=== PATIENT | male | born 1975 | race Caucasian/White ===

== ENCOUNTER 2020-01-14 00:06 | Emergency (ER) | payer OTHER, SELFPAY ==
[2020-01-14 00:07] VITALS: BP 136/81; PULSE 63; RESP 16; O2SAT 95; BMI 36.6
--- NOTE | 2020-01-14 00:29 | CT_ITS ---
PROCEDURE: CT ABDOMEN PELVIS WO CON CLINICAL INDICATION: right flank pain Right flank pain COMPARISON: No exams were available for comparison TECHNIQUE: Axial images obtained with sagittal and coronal reformats. All CT scans at the facility use one or more dose reduction, viz: automated exposure control, ma/kV adjustment per patient size (including targeted exams where dose is matched to indication, i.e. head), or iterative reconstruction technique. FINDINGS: LOWER THORAX: No acute finding ABDOMEN & PELVIS: There is mild splenomegaly at 15 cm. The liver, adrenal glands and pancreas have an unremarkable appearance. There is mild right hydronephrosis and hydroureter. There is a 3 mm nonobstructing stone in the lower pole of the right kidney. There is a 3 mm stone at the right ureterovesical junction. The left kidney has an unremarkable appearance. No evidence of appendicitis intestinal obstruction or free air. No evidence of diverticulitis. There is sigmoid diverticulosis. Degenerative disc disease is present at L5-S1 IMPRESSION: 1. 3 mm right ureterovesical junction stone with mild right-sided obstructive uropathy and 3 mm stone in the lower pole of the right kidney. 2. Sigmoid diverticulosis. 3. Mild splenomegaly Dictated by: Froylan Howell MD 01/14/2020 09:33 Electronically signed by Froylan Howell MD in [place] 01/14/2020 09:33
[2020-01-14 01:09] LABS: Basophils # 0.1 K/mm3 (0-0.2); Basophils % 0.7 % (0.1-2.0); Eosinophils # 0.2 K/mm3 (0.0-0.4); Eosinophils % 1.6 % (0.1-12.0); Hematocrit 43.2 % (42.0-52.0); Hemoglobin 15.1 g/dL (14.1-18.0); Lymphocytes # 7.5 K/mm3 (0.7-4.5); Lymphocytes % 55.8 % (10-50); Mean Corpuscular HGB Conc 34.9 g/dL (31.8-35.4); Mean Corpuscular Hemoglobin 29.6 pg (27.0-31.2); Mean Corpuscular Volume 84.7 fl (80-94); Mean Platelet Volume 7.9 fl (7.4-10.4); Monocytes % 7.2 % (1.7-9.3); Neutrophils # 4.7 K/mm3 (1.8-7.8); Neutrophils % 34.7 % (37.0-80.0); Platelet Count 370 K/mm3 (142-424); Red Cell Distribution Width 13.9 % (11.5-17.5); White Blood Count 13.5 K/mm3 (4.8-10.8)
[2020-01-14 01:11] LABS: MANUAL DIFFERENTIAL MANUAL DIFFERENTIAL (MANUAL DIFF)
[2020-01-14 01:12] LABS: Alanine Aminotransferase 33 U/L (12-78); Albumin Level 4.1 g/dl (3.5-5.0); Albumin/Globulin Ratio 1.5 (1.1-1.8); Alkaline Phosphatase 47 U/L (38-126); Aspartate Amino Transferase 35 U/L (17-59); Bilirubin,Total 0.2 mg/dl (0.2-1.3); Blood Urea Nitrogen 21 mg/dl (9-20); Calcium 9.1 mg/dl (8.4-10.2); Carbon Dioxide 26 mmol/L (22.0-30.0); Chloride 104 mmol/L (98-107); Creatinine Clearance Estimated 128 mL/min (50-200); Estimated Glomerular Filt Rate 61 ml/min (>60); GFR (African American) 73 ML/MIN (>60); Globulin 2.7 g/dL (1.3-3.2); Glucose 124 mg/dl (74-100); Sodium 138 mmol/L (136-145); Total Protein,Serum 6.8 g/dl (6.3-8.2)
--- NOTE | 2020-01-14 01:26 | PC.NURSE ---
with patients permission, was called and updated with patients condition.
--- NOTE | 2020-01-14 01:27 | PC.NURSE ---
pt to ct
[2020-01-14 01:37] VITALS: BP 127/79; PULSE 61; RESP 16; O2SAT 96
[2020-01-14 02:24] LABS: Lymphocytes % 61 % (10-50); Monocytes % 8 % (2-9); Neutrophils % 31 % (42-76); RBC Morphology Normal; Total Cells Counted 100
[2020-01-14 02:25] LABS: Platelet Estimate Normal
[2020-01-14 02:30] VITALS: BP 123/81; PULSE 65; RESP 15; O2SAT 96
--- NOTE | 2020-01-14 02:34 | HMH.EDNVD ---
ED Disposition Clinical Impression: Renal colic on right side Disposition: Home, Self-Care Condition on Discharge: Good Instructions: DI for Kidney Stones Additional Instructions: fluids and call pcp and urology Prescriptions: Tamsulosin HCl [Flomax 0.4mg capsule] 0.4 mg PO HS #10 cap Prescription Printed Referrals: Provider,MD Angie [Primary Care Provider] - Hermes Calzada MD [Staff Physician] - - Critical Care Critical Care Time: No Attestation: On 01/14/20, the high probability of a clinically significant, sudden or life threatening deterioration of the following system(s) required my full and direct attention, intervention and personal management. The time I documented below is in addition to time spent performing reported procedures but includes the following listed in this critical care notation. Medical Decision Making - Medical Records Medical records reviewed: Yes: I reviewed the patient's medical records. - Garrett Inquiry Pt receiving controlled substance: No Vital Signs: 01/14/20 00:07 Pulse Rate [Left Radial] 63 Respiratory Rate 16 Blood Pressure [Right Arm] 136/81 Blood Pressure Mean [Right Arm] 99 Blood Pressure Source [Right Arm] Automatic Cuff Blood Pressure Position [Right Arm] Sitting 02 Sat by Pulse Oximetry 95 Oxygen Delivery Method Room Air - Lab Data Lab results reviewed: Yes: I reviewed the patient's lab results. Lab Results 01/14/20 00:15: WBC 13.5 H, RBC 5.10, Hgb 15.1, Hct 43.2, MCV 84.7, MCH 29.6, MCHC 34.9, RDW 13.9, Plt Count 370, MPV 7.9, Neut % (Auto) 34.7 L, Lymph % (Auto) 55.8 H, [place] % (Auto) 7.2, Eos % (Auto) 1.6, Baso % (Auto) 0.7, Neut # (Auto) 4.7, Lymph # (Auto) 7.5 H, [place] # (Auto) 1.0, Eos # (Auto) 0.2, Baso # (Auto) 0.1, Total Counted 100, Neutrophils % (Manual) 31 L, Lymphocytes % (Manual) 61 H, Monocytes % (Manual) 8, Platelet Estimate Normal, RBC Morphology Normal 01/14/20 00:15: Sodium 138, Potassium 3.0 L, Chloride 104, Carbon Dioxide 26, Anion Gap 11.0, BUN 21 H, Creatinine 1.30 H, Estimated Creat Clear 128, Estimated GFR 61, Est GFR ( Amer) 73, Glucose 124 H, Calcium 9.1, Total Bilirubin 0.2, AST 35, ALT 33, Alkaline Phosphatase 47, Total Protein 6.8, Albumin 4.1, Globulin 2.7, Albumin/Globulin Ratio 1.5 Result diagrams: 01/14/20 00:15 01/14/20 00:15 Orders (Tests/Meds): ED MEDICATIONS Discontinued Medications Generic Name Dose Route Start Last Admin Trade Name Freq PRN Reason Stop Dose Admin Ketorolac Tromethamine 30 mg 01/14/20 00:30 01/14/20 00:34 Toradol 30mg/Ml Vial IV 01/14/20 00:31 30 mg ONCE ONE Administration Tamsulosin HCl 0.4 mg 01/14/20 21:00 Flomax 0.4mg Capsule PO 02/13/20 20:59 HS NISHA Tamsulosin HCl 0.4 mg 01/14/20 02:55 01/14/20 02:55 Flomax 0.4mg Capsule PO 01/14/20 02:56 0.4 mg HS ONE Administration ORDERS Category Date Time Status CT abdomen pelvis wo con Stat Cat Scan 01/14/20 00:29 Taken Urinalysis and Microscopic Stat Lab 01/14/20 03:10 Ordered - CT Data CT Scan: Abdomen, Pelvis Time Received: 02:[address] Reviewed: Yes: I have viewed the radiologist's interpretation Preliminary Findings: Abnormal (2mm stone) Nausea/Vomiting/Diarrhea HPI - General Chief complaint: PAIN Stated complaint: Abd/back pain Time Seen by Provider: 01/14/20 00:20 Mode of Arrival: EMS Source of Information: Patient, EMS, Medical Record Limitations: No Limitations Description of Symptoms (Recalled from ER Triage Doc. by RN): pt c/o right flank pain that woke him up in the middle of the night. pt denies any abdominal pain when palpating. EMS has 1000ml NS going at 999 ml/hr at this time. - History of Present Illness HPI Narrative: acute onset of rt flank pain tonight with no fever or rash and no trauma MD complaint: nausea Onset (ago): hour(s) Associated Abdominal Pain: Yes Location of pain: flank Severity: moderate Consistency: colicky Associated symptoms: den
[2020-01-14 03:15] LABS: Microscopic, Urine URINE MICROSCOPIC (MICROSCOPIC)
[2020-01-14 03:17] LABS: Appearance,Urine CLEAR (Clear); Bilirubin,Urine Negative (Negative); Blood, Urine 2+ (Negative); Color,Urine YELLOW (Yellow); Glucose,Urine (UA) Negative (Negative); Ketones,Urine Negative (Negative); Leukocyte Esterase,Urine Negative (Negative); Nitrate,Urine Negative (Negative); Protein,Urine Negative (Negative); Specific Gravity, Urine 1.025 (1.005-1.030); Urobilinogen,Urine 0.2 EU/dl (0.2)
[2020-01-14 03:32] LABS: Bacteria,Urine Trace /lpf; RBC,Urine Occasional #/hpf (0-3); Squamous Epithelial Cell,Urine Occasional #/hpf (0-5); WBC,Urine Occasional #/hpf (0-3)
[2020-01-14 03:47] VITALS: BP 118/83; PULSE 71; RESP 16; TEMP 36.8; O2SAT 98
== END 2020-01-14 03:52 | disposition home or self-care (01) ==
PROVIDERS: Emergency Provider Emergency Medicine
DX: N20.0 Calculus of kidney (principal)
CPT/HCPCS: 74176; 80053; 81001; 85007; 85025; 96374; 96375; 99283

== ENCOUNTER 2021-02-03 07:40 | Emergency (ER) | payer OTHER, SELFPAY ==
[2021-02-03 07:47] VITALS: BP 154/91; PULSE 76; RESP 18; TEMP 36.7; O2SAT 97; BMI 35.2
--- NOTE | 2021-02-03 08:23 | PC.NURSE ---
Pt left without being seen.
[2021-02-03 08:24] VITALS: BP 154/91; PULSE 76; RESP 18; TEMP 36.7; O2SAT 97
== END 2021-02-03 08:28 | disposition left against medical advice (07) ==
LOC: ER 07:46
PROVIDERS: Emergency Provider Emergency Medicine; PCP Family Medicine
DX: Z53.21 Procedure and treatment not carried out due to patient leaving prior to being seen by health care provider (principal)
CPT/HCPCS: 99211

== ENCOUNTER 2021-02-03 15:36 | Emergency (ER) | payer OTHER, SELFPAY ==
[2021-02-03 15:40] VITALS: BP 130/91; PULSE 83; RESP 18; TEMP 36.8; O2SAT 100; BMI 35.2
--- NOTE | 2021-02-03 16:06 | HMH.EDUTC ---
[facility] [place] Disposition Clinical Impression: Impacted ear wax Qualifiers: Laterality: bilateral Qualified Code(s): H61.23 - Impacted cerumen, bilateral Disposition: Home, Self-Care Condition on Discharge: Good Instructions: Cerumen Impaction Additional Instructions: Over the counter Debrox may help with cerumen impaction of earwax Watch for signs of infection, worsening of ear pain, fever etc Return if needed Straight to ER if any life threatening symptoms Follow up with Family Doctor if needed Referrals: Douglas Singh MD [Primary Care Provider] - As needed Time of Disposition: 16:19 Medical Decision Making - Garrett Inquiry Pt receiving controlled substance: No Garrett was queried for this patient: No Vital Signs: 02/03/21 15:40 Temperature 98.3 F Temperature Source Oral Pulse Rate [Right] 83 Respiratory Rate 18 Blood Pressure [Right Arm] 130/91 H Blood Pressure Mean [Right Arm] 104 Blood Pressure Source [Right Arm] Automatic Cuff Blood Pressure Position [Right Arm] Sitting 02 Sat by Pulse Oximetry 100 Orders (Tests/Meds): ORDERS Category Date Time Status Shoulder XR right miminum 2 views [XR shoulder RT min Exams 02/03/21 16:11 Ordered 2V] Stat Medical Decision Narrative: patient tolerated well no complications Ear wax appears completely removed [facility] [place] HPI - General Stated complaint: ear wax removal Time Seen by Provider: 02/03/21 16:06 Mode of Arrival: Family Vehicle Source of Information: Patient Description of Symptoms (Recalled from Triage Doc. by RN): Pt c/o both ears feeling full of wax HEENT Symptoms (Recalled from RN notes): Yes (bilateral ear pressure) Resp Symptoms (Recalled from RN notes): No Skin Symptoms (Recalled from RN notes): No MS Symptoms (Recalled from RN notes): No Functional Status (Recalled from RN notes): na - History of Present Illness Provider Complaint: Patient states that both his ears feels like they are full of wax States that he tried to get it out this morning but wasnt able to States that feels like they are totally blocked off and he cannot hear well due to it State that he has had to have his ears cleaned several times before to get the wax out - Related Data Previous Rx's Medication Instructions Recorded Tamsulosin HCl [Flomax 0.4mg 0.4 mg PO HS #10 cap 01/14/20 capsule] Allergies Allergy/AdvReac Type Severity Reaction Status Date / Time No Known Drug Allergies Allergy Unknown Verified 02/03/21 15:46 [NKDA] - Worker's Comp Is this a Worker's Comp case?: No [facility] History - Hepatitis A Screen Drug use history?: No High risk sexual behaviors?: No History of sexually transmitted infection?: No Currently employed?: No Childcare worker?: No Do you have indoor plumbing?: Yes Do you have electricity?: Yes Attestation statement:: This patient has been screened for Hepatitis A risk factors. I have reviewed the patient's past medical history: Yes - Social History Smoking Status: Unknown if ever smoked Alcohol Intake: never Occupational Status: employed ROS Obtained: Yes All systems reviewed & no additional complaints, Yes Systems reviewed as appropriate & no additional complaints - Constitutional Constitutional: Reports system reviewed and no additional complaints, except as docu, Denies body ache, Denies chills, Denies fever(s), Denies headache(s) - Eyes Eyes: Reports system reviewed and no additional complaints, except as docu - ENT Ears, Nose, Mouth, and Throat: Reports system reviewed and no additional complaints, except as docu, Reports otalgia Physical Exam - General General appearance: alert, in no apparent distress - Expanded ENT Exam TM/Canal exam: Bilateral TM: cerumen impaction - Respiratory Respiratory exam: Present: normal lung sounds bilaterally. Absent: respiratory distress - Cardiovascular Cardiovascular exam: Present: regular rate, normal rhythm. Absent: JVD - Abdominal Exam Abdom
[2021-02-03 16:22] VITALS: BP 122/85; PULSE 87; RESP 18; TEMP 36.8
== END 2021-02-03 16:22 | disposition home or self-care (01) ==
PROVIDERS: Emergency Provider Nurse Practitioner; PCP Family Medicine
DX: H92.03 Otalgia, bilateral (principal); H61.23 Impacted cerumen, bilateral
CPT/HCPCS: 99202; G0463

== ENCOUNTER 2021-02-08 16:23 | Emergency (ER) | payer OTHER, SELFPAY ==
[2021-02-08 16:55] VITALS: BP 140/90; PULSE 82; RESP 19; TEMP 36.9; O2SAT 98; BMI 35.2
--- NOTE | 2021-02-08 17:25 | HMH.EDUTC ---
[facility] [place] Impression: Strep throat Otitis externa Qualifiers: Otitis externa type: swimmer's ear Chronicity: acute Laterality: bilateral Qualified Code(s): H60.333 - Swimmer's ear, bilateral Disposition: Home, Self-Care Condition on Discharge: Good Instructions: DI for Strep Throat Additional Instructions: Start antibiotics today be sure to take it as ordered with the full length of time although you should start feeling better in 24-48 hours. Change toothbrush and toothpaste 24-48 hours after starting antibiotics Tylenol or Motrin as needed for fever or pain Encourage fluids, water, Gatorade, Powerade, try cold fluids, popsicles, ice cream will make it feel better You are contagious for 24 hours. Avoid kissing anyone, no eating or drinking after anyone. You are contagious. Follow-up the ER for new or worsening symptoms or no noticeable improvement over the next 24-48 hours. Follow-up with PCP this week. Prescriptions: cephALEXin [Cephalexin 500mg Tab] 500 mg PO BID 10 Days #20 tab Transmission Status: Pending to [facility] #[id number] Neomycin/Polymyxin B Sulf/Hc [Grijpunr-Ovbesnenc-JX Otic Susp 10mL] 1 drp EAR-BOTH BID 7 Days #1 bottle Transmission Status: Pending to [facility] #[id number] Referrals: Douglas Singh MD [Primary Care Provider] - Time of Disposition: 17:31 Medical Decision Making - Garrett Inquiry Pt receiving controlled substance: No Vital Signs: 02/08/21 16:55 Temperature 98.4 F Temperature Source Oral Pulse Rate [Right Brachial] 82 Respiratory Rate 19 Blood Pressure [Right Arm] 140/90 Blood Pressure Mean [Right Arm] 106 Blood Pressure Source [Right Arm] Automatic Cuff Blood Pressure Position [Right Arm] Sitting 02 Sat by Pulse Oximetry 98 Oxygen Delivery Method Room Air [facility] [place] - General Chief complaint: Urgent [facility] Center Stated complaint: SORE THROAT, BOTH EARS PAIN Time Seen by Provider: 02/08/21 17:26 Mode of Arrival: Ambulatory Source of Information: Patient Limitations: No Limitations Description of Symptoms (Recalled from Triage Doc. by RN): PATIENT C/O BILATERAL EAR PAIN X 6 DAYS HEENT Symptoms (Recalled from RN notes): No Resp Symptoms (Recalled from RN notes): No Skin Symptoms (Recalled from RN notes): No MS Symptoms (Recalled from RN notes): No Functional Status (Recalled from RN notes): WNL - History of Present Illness Provider Complaint: 45 yr old male presnets for zak ear pain and sore throat. pt states he had his ears flushed out a few days ago and since then his ears are hurting and today sore throat started - Related Data Previous Rx's Medication Instructions Recorded Tamsulosin HCl [Flomax 0.4mg 0.4 mg PO HS #10 cap 01/14/20 capsule] Neomycin/Polymyxin B Sulf/Hc 1 drp EAR-BOTH BID 7 Days #1 bottle 02/08/21 [Wtindxai-Gkvqdyvoi-AF Otic Susp 10mL] cephALEXin [Cephalexin 500mg Tab] 500 mg PO BID 10 Days #20 tab 02/08/21 Allergies Allergy/AdvReac Type Severity Reaction Status Date / Time No Known Drug Allergies Allergy Unknown Verified 02/03/21 15:46 [NKDA] - Worker's Comp Is this a Worker's Comp case?: No [facility] History - Hepatitis A Screen Drug use history?: No High risk sexual behaviors?: No History of sexually transmitted infection?: No Currently employed?: No Childcare worker?: No Do you have indoor plumbing?: Yes Do you have electricity?: Yes Attestation statement:: This patient has been screened for Hepatitis A risk factors. I have reviewed the patient's past medical history: Yes - Social History Smoking Status: Unknown if ever smoked Alcohol Intake: never Occupational Status: other ROS Obtained: Yes Systems reviewed as appropriate & no additional complaints - Constitutional Constitutional: Reports system reviewed and no additional complaints, except as docu, Denies fever(s) - Eyes Eyes: Reports system reviewed and no additional complaints, except as docu, Denies change i
[2021-02-08 17:33] VITALS: BP 140/90; PULSE 82; RESP 19; TEMP 36.9; O2SAT 98
== END 2021-02-08 17:35 | disposition home or self-care (01) ==
PROVIDERS: Emergency Provider Nurse Practitioner Family; PCP Family Medicine
DX: J02.0 Streptococcal pharyngitis (principal); H60.333 Swimmer's ear, bilateral
CPT/HCPCS: 99202; G0463

== ENCOUNTER 2021-04-15 14:52 | Emergency (ER) | payer OTHER, SELFPAY ==
[2021-04-15 15:00] VITALS: BP 131/86; PULSE 83; RESP 21; TEMP 36.9; O2SAT 97; BMI 34.5
--- NOTE | 2021-04-15 15:20 | HMH.EDUTC ---
[facility] [place] Clinical Impression: Otitis media Qualifiers: Otitis media type: unspecified Laterality: right Qualified Code(s): H66.91 - Otitis media, unspecified, right ear Disposition: Home, Self-Care Condition on Discharge: Good Instructions: Middle Ear Infection, Amoxicillin Additional Instructions: *Monitor Temp, Over the counter Motrin or Tylenol as directed/as needed Tylenol every 4 hours and Motrin every 6 hours (as long as your family doctor has told you that you can take it) for fever or pain. and straight to ER if unable to lower temp less than 101.0 after medication given *Warm salt water gargles may help to soothe the throat if you are having throat irritation *Throat Lozenges *Sleep elevated *Humidifier/Vaporizer Take antibiotics as prescribed Follow up IMMEDIATELY for new or worsening symptoms or no Noticeable improvement over the next 48-72 hours. 911 for difficulty breathing or swallowing Prescriptions: Amoxicillin [Amoxicillin 875MG Tab] 875 mg PO Q12H #20 tab Transmission Status: Pending to [facility] #[id number] Referrals: Douglas Singh MD [Primary Care Provider] - As needed Time of Disposition: 15:23 Medical Decision Making - Garrett Inquiry Pt receiving controlled substance: No Garrett was queried for this patient: No Vital Signs: 04/15/21 15:00 Temperature 98.4 F Temperature Source Oral Pulse Rate [Right Brachial] 83 Respiratory Rate 21 Blood Pressure [Right Arm] 131/86 Blood Pressure Mean [Right Arm] 101 Blood Pressure Source [Right Arm] Automatic Cuff Blood Pressure Position [Right Arm] Sitting 02 Sat by Pulse Oximetry 97 Oxygen Delivery Method Room Air [facility] [place] HPI - General Stated complaint: right ear infection Time Seen by Provider: 04/15/21 15:20 Mode of Arrival: Ambulatory Source of Information: Patient Limitations: No Limitations Description of Symptoms (Recalled from Triage Doc. by RN): PATIENT C/O RIGHT EAR PAIN X 2 DAYS HEENT Symptoms (Recalled from RN notes): Yes Resp Symptoms (Recalled from RN notes): No Skin Symptoms (Recalled from RN notes): No MS Symptoms (Recalled from RN notes): No Functional Status (Recalled from RN notes): WNL - History of Present Illness Provider Complaint: Patient states that he has been having pain in his right ear that has got worse over the last couple of days States that the pain in his right ear was throbbing and kept him up most of the night last night so he came in today - Related Data Previous Rx's Medication Instructions Recorded Amoxicillin [Amoxicillin 875MG 875 mg PO Q12H #20 tab 04/15/21 Tab] Allergies Allergy/AdvReac Type Severity Reaction Status Date / Time No Known Drug Allergies Allergy Unknown Verified 02/03/21 15:46 [NKDA] - Worker's Comp Is this a Worker's Comp case?: No [facility] History - Hepatitis A Screen Drug use history?: No High risk sexual behaviors?: No History of sexually transmitted infection?: No Currently employed?: No Childcare worker?: No Do you have indoor plumbing?: Yes Do you have electricity?: Yes Attestation statement:: This patient has been screened for Hepatitis A risk factors. I have reviewed the patient's past medical history: Yes - Social History Smoking Status: Unknown if ever smoked Alcohol Intake: never Occupational Status: other ROS Obtained: Yes All systems reviewed & no additional complaints, Yes Systems reviewed as appropriate & no additional complaints - Constitutional Constitutional: Reports system reviewed and no additional complaints, except as docu - ENT Ears, Nose, Mouth, and Throat: Reports system reviewed and no additional complaints, except as docu, Reports otalgia - Cardiovascular Cardiovascular: Reports system reviewed and no additional complaints, except as docu - Respiratory Respiratory: Reports system reviewed and no additional complaints, except as docu - Gastrointestinal Gastrointestingal: Reports: system reviewe
[2021-04-15 15:25] VITALS: BP 131/86; PULSE 83; RESP 21; TEMP 36.9; O2SAT 97
== END 2021-04-15 15:28 | disposition home or self-care (01) ==
PROVIDERS: Emergency Provider Nurse Practitioner; PCP Family Medicine
DX: H66.91 Otitis media, unspecified, right ear (principal)
CPT/HCPCS: 99202; G0463

== ENCOUNTER → 2021-07-03 08:30 | Outpatient (CLI) | payer OTHER, SELFPAY | PROVIDERS: PCP Family Medicine; Visit Provider Family Medicine | DX: Z20.822 Contact with and (suspected) exposure to COVID-19 (principal) | CPT/HCPCS: C9803; U0003; U0005 ==

== ENCOUNTER → 2021-10-05 08:07 | Outpatient (CLI) | payer OTHER, SELFPAY | PROVIDERS: PCP Family Medicine; Visit Provider Nurse Practitioner | DX: Z20.822 Contact with and (suspected) exposure to COVID-19 (principal) | CPT/HCPCS: C9803; U0003; U0005 ==

== ENCOUNTER 2021-11-13 08:08 | Emergency (ER) | payer OTHER, SELFPAY ==
[2021-11-13] VITALS (7 sets, daily range): BP systolic 104–140; BP diastolic 49–93; PULSE 68–78; RESP 16–18; TEMP 36.7–36.8; O2SAT 95–98; BMI 35.2
--- NOTE | 2021-11-13 08:30 | HMH.EDGENADL ---
ED Disposition Clinical Impression: Diverticulitis Disposition: Home, Self-Care Condition on Discharge: Good Instructions: DI for Diverticulitis Additional Instructions: Flagyl and Cipro as prescribed. Ibuprofen as prescribed. [place] as needed for pain. Return the emergency room if worse pain, fever greater than 100.5 degrees, intractable vomiting. Additional instructions for CONTROLLED SUBSTANCES: You have been prescribed a medication that is a controlled substance. Controlled substances include pain medications known as opiates and sedative nerve medications known as benzodiazepines. Tramadol, fioricet, and gabapentin are also controlled substances. Some common opiates include: Codeine (such as Tylenol #3) Hydrocodone (Vicodin, Lortab, Lorcet, [place]) Oxycodone (Percocet, Percodan, Oxycodone, Oxy IR) Some common benzodiazepines include: Diazepam (Valium) Lorazepam (Ativan) Alprazolam (Xanax) Clonazepam (Klonopin) Oxazepam (Serax) All of these controlled substances are highly addictive and frequently abused. Misuse can and frequently does lead to addiction as well as overdose and . Medication should be stored in a locked cabinet or other secure storage unit. Do not store the medication in a motor vehicle. Short term supplies, 3 days or less, are prescribed because of the highly addictive nature of the medication. Any of the controlled substance medication NOT taken should be disposed of properly and NOT SAVED. The recommended method of disposing of unused medications is: Place the medicines in a sealable plastic bag. If the medicine is a solid, crush it or add water to dissolve it. Add something undesirable (cat litter, coffee grounds, etc.) Dispose of sealed bag in household trash Do not flush or pour unused medicines down a sink or drain. Controlled substances should not be shared, given away or sold. Because of the addictive nature and frequent abuse, these medications are sometimes stolen. These medications should be kept in a safe place where they cannot be stolen. Do not keep them in your car or purse. Lost or stolen prescriptions for controlled substances WILL NOT BE REFILLED in this emergency department, regardless of whether a police report was filed. Prescriptions: Hydrocod/Acet 5/325 mg [[place] 5/325mg tablet] 1 tab PO Q6HP PRN #10 tab PRN Reason: Pain Transmission Status: Sent to [facility] Ciprofloxacin HCl [Cipro 500mg Tab] 500 mg PO BID #20 tab Transmission Status: Pending to [facility] metroNIDAZOLE [Metronidazole] 500 mg PO TID #30 tab Transmission Status: Pending to [facility] Referrals: Douglas Singh MD [Primary Care Provider] - - Critical Care Critical Care Time: No Attestation: On 11/13/21, the high probability of a clinically significant, sudden or life threatening deterioration of the following system(s) required my full and direct attention, intervention and personal management. The time I documented below is in addition to time spent performing reported procedures but includes the following listed in this critical care notation. Medical Decision Making - Garrett Inquiry Pt receiving controlled substance: Yes Garrett was queried for this patient: Yes Risks and benefits of using a controlled substance: were discussed with pt by me Vital Signs: 11/13/21 08:09 11/13/21 08:31 11/13/21 09:10 Temperature 98.2 F Temperature Source Oral Pulse Rate 77 70 Pulse Rate [Radial] 72 Respiratory Rate 16 Blood Pressure 120/70 114/74 Blood Pressure [Right Arm] 140/93 H Blood Pressure Mean [Right Arm] 108 Blood Pressure Position [Right Arm] Sitting 02 Sat by Pulse Oximetry 98 96 96 Oxygen Delivery Method Room Air Room Air 11/13/21 09:31 Temperature Temperature Source Pulse Rate 68 Pulse Rate [Radial] Respiratory Rate Blood Pressure 104/61 L Blood Pressure [Right Arm] Blood Pressure Mean [Right A
[2021-11-13 08:32] LABS: Basophils # 0.1 K/mm3 (0-0.2); Basophils % 0.5 % (0.1-2.0); Eosinophils # 0.1 K/mm3 (0.0-0.4); Eosinophils % 0.4 % (0.1-12.0); Hematocrit 46.9 % (42.0-52.0); Hemoglobin 16.3 g/dL (14.1-18.0); Lymphocytes # 2.3 K/mm3 (0.7-4.5); Lymphocytes % 16.7 % (10-50); Mean Corpuscular HGB Conc 34.7 g/dL (31.8-35.4); Mean Corpuscular Hemoglobin 30.8 pg (27.0-31.2); Mean Corpuscular Volume 88.8 fl (80-94); Mean Platelet Volume 8.3 fl (7.4-10.4); Monocytes # 0.8 K/mm3 (0.1-1.0); Monocytes % 5.9 % (1.7-9.3); Neutrophils # 10.4 K/mm3 (1.8-7.8); Neutrophils % 76.5 % (37.0-80.0); Platelet Count 301 K/mm3 (142-424); Red Blood Count 5.28 M/mm3 (4.60-6.20); Red Cell Distribution Width 14.4 % (11.5-17.5); White Blood Count 13.6 K/mm3 (4.8-10.8)
--- NOTE | 2021-11-13 08:34 | CT_ITS ---
PROCEDURE INFORMATION: Exam: CT Abdomen And Pelvis With Contrast Exam date and time: 11/13/2021 8:34 AM Age: 46 years old Clinical indication: Abdominal pain; Generalized; Additional info: Abdominal pain/ lower abd-- 4 days TECHNIQUE: Imaging protocol: Computed tomography of the abdomen and pelvis with contrast. Radiation optimization: All CT scans at this facility use at least one of these dose optimization techniques: automated exposure control; mA and/or kV adjustment per patient size (includes targeted exams where dose is matched to clinical indication); or iterative reconstruction. Contrast material: ISOVUE; Contrast volume: 75 ml; Contrast route: IV; COMPARISON: CT ABDOMEN PELVIS WO CON 01/14/2020 1:30 AM FINDINGS: Liver: Focal fatty infiltration along the falciform ligament. Gallbladder and bile ducts: Normal. No calcified stones. No ductal dilation. Pancreas: Normal. No ductal dilation. Spleen: Left upper quadrant splenule. Adrenal glands: Normal. No mass. Kidneys and ureters: Normal. No hydronephrosis. Stomach and bowel: Colonic diverticulosis with inflammatory changes about a diverticulum in the distal descending colon, consistent with diverticulitis. No bowel obstruction. Appendix: No evidence of appendicitis. Intraperitoneal space: Unremarkable. No free air. No significant fluid collection. Vasculature: Unremarkable. No abdominal aortic aneurysm. Lymph nodes: Unremarkable. No enlarged lymph nodes. Urinary bladder: Unremarkable as visualized. Reproductive: Unremarkable as visualized. 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 Soft tissues: Unremarkable. IMPRESSION: Acute uncomplicated diverticulitis involving the distal descending colon.
[2021-11-13 08:39] LABS: Chloride 102 mmol/L (98-107); Potassium 4.3 mmoL/L (3.5-5.1); Sodium 134 mmol/L (136-145)
[2021-11-13 08:41] LABS: Amylase 90 U/L (30-110); Blood Urea Nitrogen 11 mg/dl (9-20); Creatinine Clearance Estimated 157 mL/min (50-200); Estimated Glomerular Filt Rate 81 ml/min (>60); GFR (African American) 98 ML/MIN (>60)
[2021-11-13 08:42] LABS: Alanine Aminotransferase 45 U/L (12-78); Albumin Level 4.5 g/dl (3.5-5.0); Albumin/Globulin Ratio 1.5 (1.1-1.8); Alkaline Phosphatase 60 U/L (38-126); Anion Gap 8.3 mEq/L (5-15); Aspartate Amino Transferase 41 U/L (17-59); Bilirubin,Total 0.9 mg/dl (0.2-1.3); Calcium 8.7 mg/dl (8.4-10.2); Carbon Dioxide 28 mmol/L (22.0-30.0); Glucose 102 mg/dl (74-100); Lipase 594 U/L (23-300); Total Protein,Serum 7.5 g/dl (6.3-8.2)
--- NOTE | 2021-11-13 08:51 | PC.NURSE ---
LAST PO INTAKE 8PM YESTERDAY AND SIPS OF WATER THIS AM
--- NOTE | 2021-11-13 08:52 | PC.NURSE ---
pt over to CT at this time.
--- NOTE | 2021-11-13 09:02 | PC.NURSE ---
pt back from ct
== END 2021-11-13 11:18 | disposition home or self-care (01) ==
PROVIDERS: Emergency Provider Emergency Medicine; PCP Family Medicine
DX: K57.32 Diverticulitis of large intestine without perforation or abscess without bleeding
CPT/HCPCS: 74177; 80053; 82150; 83690; 85025; 96365; 96367; 96375; 99282; J1956; J2405; Q9967

== ENCOUNTER → 2021-12-07 09:01 | Outpatient (CLI) | payer OTHER, SELFPAY ==
--- NOTE | 2021-12-07 09:05 | CT_ITS ---
FINAL REPORT CLINICAL HISTORY: LLQ ABD PAIN,DIVERTICULITIS COMPARISON: November 13, 2021 FINDINGS: CT OF THE ABDOMEN AND PELVIS WITH CONTRAST Axial CT images of the abdomen and pelvis were obtained after the administration of oral and iv contrast. Coronal reformatted images were also obtained and reviewed.This study was performed with techniques to keep radiation doses as low as reasonably achievable (ALARA). Individualized dose reduction techniques using automated exposure control or adjustment of mA and/or kV according to the patient's size were employed. Abdomen: There is mild bibasilar atelectasis. The heart is normal in size. There is a less than 1 cm probable cyst in the left liver dome. There is no biliary ductal dilatation. The gallbladder is present. The spleen is unremarkable. No adrenal mass is present. The pancreas has an unremarkable appearance. There is a less than 3 mm nonobstructing stone in the lower pole of the right kidney. There is no hydronephrosis. The aorta is normal in caliber. There is no free fluid or adenopathy. Pelvis: The appendix is normal. The urinary bladder is unremarkable. There is descending and sigmoid colon diverticulosis. There has been interval improvement in the diverticulitis seen on November 13. There is no evidence of mass or adenopathy. There is no evidence of bowel obstruction. There is bilateral L5 pars defects. IMPRESSION: Interval improvement in diverticulitis seen on November 13, 2021. Nonobstructing right renal stone. Probable cyst in left liver dome. Reviewed, Interpreted and Dictated by Carlos Rivera III, MD Transcribed by Chiquita Bermudez Authenticated by Carlos Rivera III, MD on 12/07/2021 11:08:[address] [facility]
== END ==
PROVIDERS: PCP Family Medicine; Visit Provider Family Medicine
DX: R10.32 Left lower quadrant pain (principal); K57.92 Diverticulitis of intestine, part unspecified, without perforation or abscess without bleeding
CPT/HCPCS: 74177; Q9967

== ENCOUNTER 2022-02-28 04:01 | Emergency (ER) | payer OTHER, SELFPAY ==
[2022-02-28] VITALS (9 sets, daily range): BP systolic 96–134; BP diastolic 62–82; PULSE 54–68; RESP 12–18; TEMP 36.7–36.8; O2SAT 96–99; BMI 36.1
--- NOTE | 2022-02-28 03:26 | ECG_ITS ---
APPROVED REPORT Exam: Resting ECG HR:53 bpm ECG Measurements Heart Rate 53 AXES VA 186 P 31 QRSd 98 QRS 55 QT 404 T 51 QTc 386 Conclusion SINUS BRADYCARDIA BORDERLINE ECG UNCONFIRMED REPORT Electronically signed by : Douglas Souza MD 03/03/2022 21:24:27
--- NOTE | 2022-02-28 04:08 | CT_ITS ---
PROCEDURE INFORMATION: Exam: CT Cervical Spine Without Contrast Exam date and time: 02/28/2022 4:37 AM Age: 46 years old Clinical indication: Injury or trauma; Fall; Blunt trauma; Patient HX: Fell in bathroom, hit frontal head, laceration TECHNIQUE: Imaging protocol: Computed tomography images of the cervical spine without contrast. Radiation optimization: All CT scans at this facility use at least one of these dose optimization techniques: automated exposure control; mA and/or kV adjustment per patient size (includes targeted exams where dose is matched to clinical indication); or iterative reconstruction. COMPARISON: No relevant recent comparison exams are available. FINDINGS: Bones/joints: Loss of normal curvature of the spine, alignment of the vertebral bodies is grossly normal. Chronic fracture of the tip of spinous process of T2. No evidence of acute compression fracture or deformity in the cervical spine. No displaced fracture involving the vertebral bodies or their posterior elements. Facet joints are normally aligned without facetal dislocation or subluxation. No fracture of the dens, lateral C1-C2 articulation, atlantooccipital joints and central atlantodental joint are unremarkable. Discs/Spinal canal/Neural foramina: Chronic degenerative changes in the visualized cervical spine. Lungs: NA Soft tissues: Pre-and paravertebral soft tissues are grossly normal. IMPRESSION: Chronic degenerative changes without an acute cervical spine injury or abnormality.
--- NOTE | 2022-02-28 04:08 | XR_ITS ---
PROCEDURE INFORMATION: Exam: XR Chest Exam date and time: 02/28/2022 4:38 AM Age: 46 years old Clinical indication: Injury or trauma; Fall; Blunt trauma (contusions or hematomas) TECHNIQUE: Imaging protocol: XR of the chest. Views: 1 view. COMPARISON: CT CERVICAL SPINE WO CON 02/28/2022 4:37 AM FINDINGS: Lungs: No focal consolidation. Pleural spaces: No pleural effusion. No pneumothorax. Heart/Mediastinum: Unremarkable cardiomediastinal silhouette. Bones/joints: No acute osseous findings. IMPRESSION: No focal consolidation.
--- NOTE | 2022-02-28 04:08 | CT_ITS ---
PROCEDURE INFORMATION: Exam: CT Head Without Contrast Exam date and time: 02/28/2022 4:34 AM Age: 46 years old Clinical indication: Injury or trauma; Fall; Blunt trauma (contusions or hematomas); Without loss of consciousness; Patient HX: Fell in bathrooom, hit frontal head, small laceration TECHNIQUE: Imaging protocol: Computed tomography of the head without contrast. Radiation optimization: All CT scans at this facility use at least one of these dose optimization techniques: automated exposure control; mA and/or kV adjustment per patient size (includes targeted exams where dose is matched to clinical indication); or iterative reconstruction. COMPARISON: No relevant prior studies available. FINDINGS: Brain: Normal appearing brain parenchyma without intraparenchymal hemorrhage and normal rios-white matter differentiation/no obvious acute ischemic stroke. No intra-or extra-axial fluid collection, no supra-or infratentorial mass, no mass effect or midline shift. Cerebral ventricles: Ventricles, sulci and basal cisterns are normal in size without hydrocephalus. 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 Paranasal sinuses: No significant mucoperiosteal thickening in the visualized paranasal sinuses. Mastoid air cells: No mastoid effusion. Bones/joints: Visualized skull bones are grossly normal. Soft tissues: NA IMPRESSION: No evidence of an acute intracranial hemorrhage, mass lesion or obvious acute ischemic infarction.
--- NOTE | 2022-02-28 04:08 | XR_ITS ---
PROCEDURE INFORMATION: Exam: XR Pelvis Exam date and time: 02/28/2022 4:39 AM Age: 46 years old Clinical indication: Injury or trauma; Fall; Blunt trauma (contusions or hematomas); Bilateral; Pelvic region TECHNIQUE: Imaging protocol: XR pelvis. Views: 1 or 2 view. COMPARISON: CT ABDOMEN PELVIS W CON 12/07/2021 9:39 AM FINDINGS: Bones/joints: No evidence of acute fracture. Soft tissues: Unremarkable. IMPRESSION: No evidence of acute fracture. If symptoms persist, recommend repeat radiograph in 5-7 days.
[2022-02-28 04:24] LABS: Anion Gap 8.6 mEq/L (5-15); Blood Urea Nitrogen 16 mg/dl (9-20); Calcium 9.1 mg/dl (8.4-10.2); Carbon Dioxide 30 mmol/L (22.0-30.0); Chloride 105 mmol/L (98-107); Creatinine Clearance Estimated 146 mL/min (50-200); Estimated Glomerular Filt Rate 73 ml/min (>60); GFR (African American) 88 ML/MIN (>60); Glucose 131 mg/dl (74-100); Magnesium 1.8 mg/dl (1.6-2.3); Potassium 3.6 mmoL/L (3.5-5.1); Sodium 140 mmol/L (136-145)
[2022-02-28 04:29] LABS: C-Reactive Protein 0.6 mg/L (0-4)
[2022-02-28 04:43] LABS: Procalcitonin 0.084 ng/mL (0.0-2.0); T4 (Thyroxine) 6.3 ug/dl (5.53-11.0)
[2022-02-28 04:46] LABS: Erythrocyte Sedimentation Rate 12 mm/hr (0-15)
[2022-02-28 04:56] LABS: Thyroid Stimulating Hormone 3.73 uIU/mL (0.465-4.68)
[2022-02-28 05:24] LABS: Basophils # 0.2 K/mm3 (0-0.2); Basophils % 2.3 % (0.1-2.0); Eosinophils # 0.1 K/mm3 (0.0-0.4); Eosinophils % 1.3 % (0.1-12.0); Hemoglobin 16.1 g/dL (14.1-18.0); Lymphocytes % 44.7 % (10-50); Mean Corpuscular HGB Conc 35.9 g/dL (31.8-35.4); Mean Corpuscular Hemoglobin 31.5 pg (27.0-31.2); Mean Corpuscular Volume 87.9 fl (80-94); Mean Platelet Volume 8.3 fl (7.4-10.4); Monocytes # 0.6 K/mm3 (0.1-1.0); Monocytes % 6.9 % (1.7-9.3); Neutrophils % 44.7 % (37.0-80.0); Platelet Count 305 K/mm3 (142-424); Red Blood Count 5.12 M/mm3 (4.60-6.20); Red Cell Distribution Width 14.2 % (11.5-17.5); White Blood Count 8.9 K/mm3 (4.8-10.8)
[2022-02-28 05:47] LABS: Troponin I < 0.01 ng/ml (0.00-0.034)
--- NOTE | 2022-02-28 06:22 | HMH.EDSYNC ---
ED Disposition Clinical Impression: Vasovagal syncope, Bradycardia Forehead laceration Qualifiers: Encounter type: initial encounter Qualified Code(s): S01.81XA - Laceration without foreign body of other part of head, initial encounter Disposition: Home, Self-Care Condition on Discharge: Good Instructions: DI for Syncope in Adults (Fainting) Additional Instructions: see pcp for follow up Referrals: Donn Romero MD [Primary Care Provider] - - Critical Care Critical Care Time: No Attestation: On 02/28/22, the high probability of a clinically significant, sudden or life threatening deterioration of the following system(s) required my full and direct attention, intervention and personal management. The time I documented below is in addition to time spent performing reported procedures but includes the following listed in this critical care notation. Medical Decision Making - Medical Records Medical records reviewed: Yes: I reviewed the patient's medical records. - Garrett Inquiry Pt receiving controlled substance: No Vital Signs: 02/28/22 04:01 Temperature 98.2 F Temperature Source Oral Pulse Rate [Apical] 60 Respiratory Rate 18 Blood Pressure [Right Arm] 96/72 L Blood Pressure Mean [Right Arm] 80 Blood Pressure Source [Right Arm] Automatic Cuff Blood Pressure Position [Right Arm] Sitting 02 Sat by Pulse Oximetry 98 Oxygen Delivery Method Room Air - Lab Data Lab results reviewed: Yes: I reviewed the patient's lab results. Lab Results 02/28/22 04:00: ESR 12 02/28/22 04:00: Sodium 140, Potassium 3.6, Chloride 105, Carbon Dioxide 30, Anion Gap 8.6, BUN 16, Creatinine 1.10, Estimated Creat Clear 146, Estimated GFR 73, Est GFR ( Amer) 88, Glucose 131 H, Calcium 9.1, C-Reactive Protein 0.6, Procalcitonin 0.084 02/28/22 04:00: Magnesium 1.8, TSH 3.73, Thyroxine (T4) 6.3 02/28/22 04:00: WBC 8.9, RBC 5.12, Hgb 16.1, Hct 45.0, MCV 87.9, MCH 31.5 H, MCHC 35.9 H, RDW 14.2, Plt Count 305, MPV 8.3, Neut % (Auto) 44.7, Lymph % (Auto) 44.7, Latimer % (Auto) 6.9, Eos % (Auto) 1.3, Baso % (Auto) 2.3 H, Neut # (Auto) 4.0, Lymph # (Auto) 4.0, Latimer # (Auto) 0.6, Eos # (Auto) 0.1, Baso # (Auto) 0.2 02/28/22 04:00: Troponin I < 0.01 Result diagrams: 02/28/22 04:00 02/28/22 04:00 Orders (Tests/Meds): ED MEDICATIONS Generic Name Dose Route Start Last Admin Trade Name Freq PRN Reason Stop Dose Admin Sodium Chloride 1,000 mls @ 999 mls/hr 02/28/22 04:15 02/28/22 05:06 Sod Chlor 0.9% 1000ml Bag IV 02/28/22 05:15 999 mls/hr .Q1H1M NISHA Administration Discontinued Medications Generic Name Dose Route Start Last Admin Trade Name Freq PRN Reason Stop Dose Admin Ketorolac Tromethamine 30 mg 02/28/22 04:12 02/28/22 05:06 Ketorolac 30mg/Ml Vial IV 02/28/22 04:13 30 mg ONCE ONE Administration ORDERS Category Date Time Status Troponin I Q3H Lab 02/28/22 08:30 Ordered Troponin I Q3H Lab 02/28/22 11:30 Ordered - Radiology Data #1 Image(s): Chest, Pelvis Image Reviewed: Yes I have reviewed radiologist's interpretation Preliminary Findings: Normal/NAD - CT Data CT Scan: Head, C-Spine Time Received: 06:[address] Reviewed: Yes: I have viewed the radiologist's interpretation Preliminary Findings: Normal/NAD - ECG Data Tracing #1 Arrhythmias present: sinus vannessa Ischemic changes: non-specific ST-T wave changes Syncope HPI - General Chief Complaint: Syncope Stated Complaint: syncope, head lac Time Seen by Provider: 02/28/22 04:30 Mode of Arrival: Wheelchair Source of Information: Patient, Medical Record Limitations: No Limitations Description of Symptoms (Recalled from ER Triage Doc. by RN): Patient states that at roughly 0200 he was sitting on the toilet attempting to have a bm when he fainted and hit his head on his shower. Since then he has felt light headed. Patient has a small laceration to her forehead but denies any injury to any extremeties, his back
== END 2022-02-28 07:19 | disposition home or self-care (01) ==
PROVIDERS: Emergency Provider Emergency Medicine; PCP Family Medicine
DX: S01.81XA Laceration without foreign body of other part of head, initial encounter (principal); R55 Syncope and collapse; R00.1 Bradycardia, unspecified; W18.11XA Fall from or off toilet without subsequent striking against object, initial encounter; Y92.002 Bathroom of unspecified non-institutional (private) residence as the place of occurrence of the external cause
CPT/HCPCS: 12011; G0168; 70450; 71045; 72125; 72170; 80048; 83735; 84145; 84436; 84443; 84484; 85025; 85651; 86140; 90471; 90715; 93005; 96361; 96372; 96374; 99285

== ENCOUNTER → 2022-03-01 15:03 | Outpatient (CLI) | payer OTHER, SELFPAY | PROVIDERS: PCP Nurse Practitioner Family; Visit Provider Emergency Medicine | DX: R55 Syncope and collapse (principal); R00.1 Bradycardia, unspecified | CPT/HCPCS: 93225; 93226 ==

== ENCOUNTER → 2022-03-02 07:38 | Outpatient (CLI) | payer OTHER, SELFPAY | PROVIDERS: PCP Nurse Practitioner Family; Visit Provider Nurse Practitioner Family | DX: Z20.822 Contact with and (suspected) exposure to COVID-19 (principal) | CPT/HCPCS: C9803; U0003; U0005 ==

== ENCOUNTER → 2022-04-15 14:55 | Outpatient (CLI) | payer OTHER, SELFPAY ==
--- NOTE | 2022-04-15 15:01 | XR_ITS ---
FINAL REPORT CLINICAL HISTORY: LT ANKLE PAIN FINDINGS: LEFT ANKLE Three views demonstrate no acute fracture or dislocation. The visualized joint spaces are normally aligned. There is a small plantar spur. The soft tissues are unremarkable. IMPRESSION: No acute bony abnormality. Reviewed, Interpreted and Dictated by Osman Lemus MD Transcribed by Chiquita Bermudez Authenticated and [facility]
== END ==
PROVIDERS: PCP Nurse Practitioner Family; Visit Provider Nurse Practitioner Family
DX: M25.572 Pain in left ankle and joints of left foot (principal)
CPT/HCPCS: 73610

== ENCOUNTER → 2022-05-05 06:23 | Outpatient (CLI) | payer OTHER, SELFPAY | PROVIDERS: PCP Nurse Practitioner Family; Visit Provider Nurse Practitioner | DX: R07.9 Chest pain, unspecified (principal) | CPT/HCPCS: 93306 ==

== ENCOUNTER → 2022-06-07 13:32 | Outpatient (CLI) | payer OTHER, SELFPAY | PROVIDERS: PCP Family Medicine; Visit Provider Surgery | DX: Z01.812 Encounter for preprocedural laboratory examination (principal); Z20.822 Contact with and (suspected) exposure to COVID-19 | CPT/HCPCS: C9803; U0003; U0005 ==

== ENCOUNTER 2022-09-07 15:52 | Emergency (ER) | payer OTHER, SELFPAY ==
[2022-09-07 16:24] VITALS: BMI 28.8
[2022-09-07 16:24] LABS: Microscopic, Urine URINE MICROSCOPIC (MICROSCOPIC)
[2022-09-07 16:30] VITALS: BP 125/86; PULSE 72; RESP 18; O2SAT 96
[2022-09-07 16:31] LABS: Appearance,Urine CLEAR (Clear); Bilirubin,Urine Negative (Negative); Blood, Urine Negative (Negative); Color,Urine YELLOW (Yellow); Glucose,Urine (UA) Negative (Negative); Ketones,Urine Negative (Negative); Leukocyte Esterase,Urine Negative (Negative); Nitrate,Urine Negative (Negative); Protein,Urine Negative (Negative); Specific Gravity, Urine >= 1.030 (1.005-1.030); Urobilinogen,Urine 0.2 EU/dl (0.2)
[2022-09-07 16:54] LABS: Bacteria,Urine Trace /lpf; Mucus,Urine 1+ /lpf
[2022-09-07 17:01] VITALS: BP 138/92; PULSE 87; RESP 18; O2SAT 95
--- NOTE | 2022-09-07 17:04 | US_ITS ---
PROCEDURE INFORMATION: Exam: US Scrotum Exam date and time: 09/07/2022 5:09 PM Age: 46 years old Clinical indication: Scrotum pain; Additional info: Testicular pain bilateral TECHNIQUE: Imaging protocol: Real-time ultrasound of the scrotum and contents with color Doppler and image documentation. COMPARISON: CT ABDOMEN PELVIS W CON 12/07/2021 9:39 AM FINDINGS: Right testicle: The right testicle measures 4.3 x 2.0 x 2.8 cm (14 mL) The echotexture is homogeneous without focal lesions. Normal color Doppler evaluation. There is adequate arterial inflow and venous outflow. Left testicle: The left testicle measures 4 x 3.2 x 3.2 cm (17 mL)The echotexture is homogeneous without focal lesions. Normal color Doppler evaluation. There is adequate arterial inflow and venous outflow. Epididymides: Normal. Scrotum/soft tissues: Normal. IMPRESSION: Unremarkable scrotal ultrasound
--- NOTE | 2022-09-07 17:06 | CT_ITS ---
PROCEDURE INFORMATION: Exam: CT Abdomen And Pelvis Without Contrast Exam date and time: 09/07/2022 5:37 PM Age: 46 years old Clinical indication: Abdominal pain; Additional info: Stone protocol TECHNIQUE: Imaging protocol: Computed tomography of the abdomen and pelvis without contrast. Radiation optimization: All CT scans at this facility use at least one of these dose optimization techniques: automated exposure control; mA and/or kV adjustment per patient size (includes targeted exams where dose is matched to clinical indication); or iterative reconstruction. COMPARISON: CT ABDOMEN PELVIS W CON 12/07/2021 9:39 AM FINDINGS: Lungs: Lung bases are unremarkable. Liver: No focal hepatic lesions within the limits of noncontrast examination. Gallbladder and bile ducts: Gallbladder is distended without radiopaque cholelithiasis. No biliary ductal dilation. Pancreas: No peripancreatic fluid stranding. No main pancreatic ductal dilation. Spleen: No splenomegaly. Adrenal glands: The adrenal glands are normal. Kidneys and ureters: Nonobstructive bilateral nephrolithiasis noted. No hydroureteronephrosis on either side. No perinephric stranding Stomach and bowel: Pancolonic diverticulosis noted without acute inflammatory change. Appendix: A normal appendix is identified. Intraperitoneal space: There is no evidence of free intraperitoneal or pelvic fluid. Vasculature: Unremarkable. No abdominal aortic aneurysm. Lymph nodes: No evidence of retroperitoneal or mesenteric lymphadenopathy Urinary bladder: Urinary bladder is unremarkable. Reproductive: Unremarkable as visualized. Bones/joints: Chronic bilateral pars defect at L5-S1 without significant anterolisthesis. No acute osseous abnormality Soft tissues: Unremarkable. IMPRESSION: Bilateral nonobstructive nephrolithiasis without hydroureteronephrosis on either side
--- NOTE | 2022-09-07 17:08 | HMH.EDGENADL ---
Discharge Plan Disposition Patient Disposition: Home, Self-Care Condition: Good Prescriptions Prescriptions: No Action peg 3350-electrolytes [Golytely] 236-22.74-6.74 -5.86 gram recon soln 240 ml PO Q10M Qty: 4000 0RF Rx Instructions: until fecal effluent is clear Referrals Follow up/Referrals: Donn Romero MD [Primary Care Provider] - See instructions Activity Restrictions/Add. Instructions Additional Instructions/Restrictions: Please follow-up with your primary care physician within the next 1 to 2 days for ongoing symptoms. Please take Tylenol and ibuprofen for pain control. You have been found to have bilateral hydronephrosis and nonobstructive. Scrotal ultrasound was negative. Please return to the emergency department if symptoms worsen. Clinical Impressions Clinical Impression: Pain in scrotum Instructions Patient Instructions: DI for Testicular Pain Print Language Print Language: Stateless Discharge ED Provider: Mali Cody Adult HPI General Chief complaint: Abdominal Pain Stated complaint: possible Kidney stones Time Seen by Provider: 09/07/22 18:00 Mode of Arrival: Ambulatory Source of Information: Patient Limitations: No Limitations History of Present Illness HPI narrative: Mr. Ellison is a 46-year-old male past medical history for nephrolithiasis presenting to the emergency department for testicular pain as well as left lower quadrant abdominal pain. Symptom onset 1 to 2 days prior. Patient reports similar symptoms with his renal stones however the scrotal pain is new. Patient also reports dysuria. Denies any hematuria. Denies any recent trauma to the abdomen or scrotum. No significant swelling. No penile discharge or lesions noted. No fevers or other infectious symptoms. Normal bowel movements. No bloody stools. No N/V/D. MD complaint: Scrotal, lower abdominal pain Onset (ago): day(s) Location: genitals Radiation: abdomen Severity: mild Quality: constant Consistency: constant Relieving factors: none Exacerbating factors: none Associated symptoms: denies other symptoms Treatments prior to arrival: none Related Data Previous Rx's Medication Instructions Recorded peg 3350-electrolytes 236 240 ml PO Q10M #4,000 mL 05/13/22 gram-22.74 gram-6.74 gram-5.86 gram solution (Golytely) Allergies Allergy/AdvReac Type Severity Reaction Status Date / Time No Known Drug Allergies Allergy Unknown Verified 06/07/22 13:12 [NKDA] [facility] Disclaimer: The information contained in this section may have been updated after the patient was seen, as this information can be updated by other users. Medical History Abnormal electrocardiography Allergies Blood clot in eye Chest pain Dyspnea History of gastroesophageal reflux (GERD) History of stroke Loss of vision Obesity Surgical History History of knee surgery Family History Other Cancer Diabetes Family history of diabetes mellitus type II Family history of hypertension Heart attack Hypertension No significant family history Social History Smoking Status: Never smoker alcohol intake: never substance use type: denies use current occupational status: other Travel in the last 8 weeks: None ROS Obtained: Yes All systems reviewed & no additional complaints except as documented Physical Exam General General appearance: alert and in no apparent distress Head Head exam: atraumatic and normal inspection Eye Eye exam: Present normal appearance and EOMI ENT ENT exam: Present normal exam and mucous membranes moist Neck Neck exam: Present normal inspection and full ROM Chest Chest inspection: Present normal inspection and symmetric chest wall rise Respiratory Respiratory exam: Present
[2022-09-07 17:10] VITALS: BP 138/92; PULSE 74; RESP 18; TEMP 36.6; O2SAT 95; BMI 35.2
--- NOTE | 2022-09-07 17:10 | PC.NURSE ---
assisted MD with penis exam, pt tolerated well, at bs during exam
[2022-09-07 19:28] VITALS: BP 127/94; PULSE 64; O2SAT 96
[2022-09-07 20:03] VITALS: BP 127/94; PULSE 64; RESP 18; TEMP 36.8; O2SAT 99
== END 2022-09-07 20:08 | disposition home or self-care (01) ==
PROVIDERS: Emergency Provider Student in an Organized Health Care Education/Training Program; PCP Family Medicine
DX: N50.82 Scrotal pain (principal); Z86.73 Personal history of transient ischemic attack (TIA), and cerebral infarction without residual deficits
CPT/HCPCS: 74176; 76870; 81001; 99284

== ENCOUNTER → 2023-02-13 15:40 | Outpatient (CLI) | payer OTHER, SELFPAY ==
--- NOTE | 2023-02-13 16:05 | CT_ITS ---
PROCEDURE INFORMATION: Exam: CT Abdomen And Pelvis With Contrast Exam date and time: 02/13/2023 4:46 PM Age: 47 years old Clinical indication: Patient HX: Generalized abdominal pain. HX of diverticulitis and kidney stones. ; Additional info: Abd pain TECHNIQUE: Imaging protocol: Computed tomography of the abdomen and pelvis with contrast. Radiation optimization: All CT scans at this facility use at least one of these dose optimization techniques: automated exposure control; mA and/or kV adjustment per patient size (includes targeted exams where dose is matched to clinical indication); or iterative reconstruction. Contrast material: ISOVUE; Contrast volume: 75 ml; Contrast route: IV; REPORTING DATA: Count of CT and Cardiac NM exams in prior 12 months: This patient has received 3 known CTs and 0 known cardiac nuclear medicine studies in the 12 months prior to the current study. COMPARISON: CT ABDOMEN PELVIS WO CON 09/07/2022 5:37 PM FINDINGS: Liver: hepatic steatosis. Gallbladder and bile ducts: Normal. No calcified stones. No ductal dilation. Pancreas: Normal. No ductal dilation. Spleen: Normal. No splenomegaly. Adrenal glands: Normal. No mass. Kidneys and ureters: punctate nonobstructing calculus midpole left kidney, lower pole right kidney. Stomach and bowel: Colonic diverticulosis. No evidence of diverticulitis. Appendix: No evidence of appendicitis. Intraperitoneal space: Unremarkable. No free air. No significant fluid collection. Vasculature: Unremarkable. No abdominal aortic aneurysm. Lymph nodes: Unremarkable. No enlarged lymph nodes. Urinary bladder: Unremarkable as visualized. Reproductive: Unremarkable as visualized. Bones/joints: Bilateral pars defects L5. Findings appear stable. Soft tissues: Unremarkable. IMPRESSION: 1. No evidence of acute abnormality. 2. Please see above report for discussion of nonacute findings.
[2023-02-13 16:21] LABS: Basophils # 0.1 K/mm3 (0-0.2); Basophils % 0.6 % (0.1-2.0); Eosinophils # 0.2 K/mm3 (0.0-0.4); Eosinophils % 1.6 % (0.1-12.0); Hematocrit 44.9 % (42.0-52.0); Hemoglobin 15.6 g/dL (14.1-18.0); Lymphocytes # 4.1 K/mm3 (0.7-4.5); Lymphocytes % 43.2 % (10-50); Mean Corpuscular HGB Conc 34.7 g/dL (31.8-35.4); Mean Corpuscular Hemoglobin 29.9 pg (27.0-31.2); Mean Corpuscular Volume 86.4 fl (80-94); Mean Platelet Volume 7.8 fl (7.4-10.4); Monocytes # 0.6 K/mm3 (0.1-1.0); Monocytes % 6.4 % (1.7-9.3); Neutrophils # 4.6 K/mm3 (1.8-7.8); Neutrophils % 48.3 % (37.0-80.0); Platelet Count 305 K/mm3 (142-424); Red Cell Distribution Width 13.8 % (11.5-17.5); White Blood Count 9.5 K/mm3 (4.8-10.8)
[2023-02-13 16:31] LABS: Chloride 101 mmol/L (98-107); Potassium 3.7 mmoL/L (3.5-5.1); Sodium 137 mmol/L (136-145)
[2023-02-13 16:33] LABS: Blood Urea Nitrogen 9 mg/dl (9-20); Estimated Glomerular Filt Rate 72 ml/min (>60); GFR (African American) 88 ML/MIN (>60)
[2023-02-13 16:34] LABS: Alanine Aminotransferase 75 U/L (12-78); Albumin Level 4.1 g/dl (3.5-5.0); Albumin/Globulin Ratio 1.6 (1.1-1.8); Alkaline Phosphatase 52 U/L (38-126); Anion Gap 14.7 mEq/L (5-15); Aspartate Amino Transferase 66 U/L (17-59); Bilirubin,Total 0.4 mg/dl (0.2-1.3); Carbon Dioxide 25 mmol/L (22.0-30.0); Globulin 2.6 g/dL (1.3-3.2); Total Protein,Serum 6.7 g/dl (6.3-8.2)
[2023-02-13 16:35] LABS: Calcium 8.6 mg/dl (8.4-10.2); Glucose 85 mg/dl (74-100)
== END ==
PROVIDERS: PCP Family Medicine; Visit Provider Nurse Practitioner Family
DX: R10.9 Unspecified abdominal pain (principal); K57.92 Diverticulitis of intestine, part unspecified, without perforation or abscess without bleeding
CPT/HCPCS: 36415; 74177; 80053; 85025; Q9967

== ENCOUNTER 2023-06-28 12:10 | Day surgery (SDC) | payer OTHER, SELFPAY ==
[2023-06-20 10:11] VITALS: BMI 36.4
[2023-06-28 12:34] VITALS: BP 140/99; PULSE 61; RESP 18; TEMP 36.6; O2SAT 98
--- NOTE | 2023-06-28 12:52 | P.PNANES_ITS ---
[facility] Disclaimer: The information contained in this section may have been updated after the patient was seen, as this information can be updated by other users. Medical History Abnormal electrocardiography Allergies Blood clot in eye Chest pain Diverticulitis Dyspnea History of gastroesophageal reflux (GERD) History of stroke Left lower quadrant abdominal pain Left upper quadrant abdominal pain Loss of vision Obesity Surgical History History of knee surgery Family History Other Cancer Diabetes Family history of diabetes mellitus type II Family history of hypertension Heart attack Hypertension No significant family history Social History Smoking Status: Never smoker alcohol intake: never substance use type: denies use current occupational status: other Travel in the last 8 weeks: None [facility] Anesthesia Checklist Patient Identification Patient Identification: Arm Band and Verbal (Name & ) Structural Data Admitted From: Home Planned Operative Procedure/s: Colonoscopy Consent for Planned Operative Procedure(s) Verified: Yes NPO Status Verified Time NPO: 00:00 Airway Assessment Mallampati Score:: Class II C-Spine Mobility Assessed: Yes TMJ Mobility Assessed: Yes Dentition: Good Dentition Neurological Assessment Level of Consciousness: Awake Hx Seizures: No Numbness or tingling in extremities: No Anesthesia Plan Anesthesia Risk discussed: Yes Anesthesia Plan: Verified ASA Class: II Anesthesia Type: MAC
[2023-06-28 12:59] VITALS: O2SAT 98
--- NOTE | 2023-06-28 13:36 | HMH.SCOPE ---
Procedure: Date: 06/28/23 Patient Date of :: 1975 Procedure Performed:: Colonoscopy Indications:: Colorectal cancer screening Performing Provider:: Benji Arevalo MD Referring Provider:: Douglas Neff MD Sedation:: See RN records Procedure:: After placing the patient in the left lateral decubitus position, the colonoscopy was gently inserted into the rectum and under direct visualization advanced to the cecum which was identified by transillumination in the right lower quadrant, identification of the ileocecal valve, appendiceal orifice, and cecal strap. Color, texture, mucosa, and anatomy of the colon were carefully examined with the scope. Preparation was excellent Findings:: Anal canal: normal Rectum: Hemorrhodids. Two diminutive polyps. Removed with cold forceps. Sigmoid colon: Diverticulosis. Pedunculatd polyp 7-8 mm in size. Removed with hot snare polpectomy. Sessile polyp 5 mm in size. Removed with cold snare polypectomy Descending colon: Diverticulosis Splenic flexure: normal Transverse colon: normal without polyps or inflammatory changes Hepatic flexure: normal Ascending colon: Diverticulosis Cecum: normal Terminal ileum: not visualized Impression: Polyps of rectum x 2 Polyps of sigmoid colon x 2 Diverticulosis Redundanat colon Recommendations:: Await pathology results Higher fiber diet Repeat colonoscopy in 3 years Complications:: none Estimated blood obtained (mL): 0 Colonoscopy Component Colonoscopy Component Was a colonoscopy performed during today's procedure?: Yes Recommended follow up colonoscopy of at least 10 years?: Yes
[2023-06-28 13:40] VITALS: BP 89/65; PULSE 84; RESP 18; TEMP 36.4; O2SAT 93
--- NOTE | 2023-06-28 13:49 | SUR.PHASEII ---
Pt arrived to post op with oral airway in place. Pt is now waking and able to remove airway without difficulty
[2023-06-28 13:50] VITALS: BP 118/84; PULSE 84; RESP 18; O2SAT 96
[2023-06-28 14:00] VITALS: BP 120/73; PULSE 84; RESP 18; O2SAT 96
[2023-06-28 14:08] VITALS: BP 124/76; PULSE 61; RESP 18; O2SAT 95
== END 2023-06-28 14:10 | disposition home or self-care (01) ==
PROVIDERS: PCP Family Medicine; Visit Provider Internal Medicine
PROC: 0DJD8ZZ Inspection of Lower Intestinal Tract, Via Natural or Artificial Opening Endoscopic (ICD-10-PCS; CPT 45378; principal; 2023-06-28 13:00)
DX: Z12.11 Encounter for screening for malignant neoplasm of colon (principal); K64.8 Other hemorrhoids; D12.8 Benign neoplasm of rectum; D12.5 Benign neoplasm of sigmoid colon; K57.30 Diverticulosis of large intestine without perforation or abscess without bleeding
CPT/HCPCS: 45380; 45385; J2704

== ENCOUNTER 2023-07-17 21:53 | Emergency (ER) | payer OTHER, SELFPAY ==
[2023-07-17 21:53] VITALS: BP 156/71; PULSE 59; RESP 16; TEMP 36.9; O2SAT 100; BMI 36.6
[2023-07-17 21:55] VITALS: PULSE 59
--- NOTE | 2023-07-17 21:56 | XR_ITS ---
PROCEDURE INFORMATION: Exam: XR Chest Exam date and time: 07/17/2023 10:34 PM Age: 47 years old Clinical indication: Sternal or substernal pain; Additional info: Cp TECHNIQUE: Imaging protocol: Radiologic exam of the chest. Views: 2 views. COMPARISON: CR XR CHEST PORTABLE 02/28/2022 4:38 AM FINDINGS: Lungs: Normal pulmonary expansion. Pulmonary vasculature grossly normal. No gross pulmonary infiltrates or edema pattern. Pleural spaces: No pleural effusion. No pneumothorax. Heart/Mediastinum: Heart size normal. No tracheal/mediastinal shift. Bones/joints: No acute osseous abnormalities are identified. Mild thoracic spondylosis. IMPRESSION: No acute thoracic process.
--- NOTE | 2023-07-17 21:56 | ECG_ITS ---
APPROVED REPORT Exam: Resting ECG HR:52 bpm ECG Measurements Heart Rate 52 AXES MT 186 P 17 QRSd 104 QRS 51 QT 431 T 48 QTc 412 Conclusion SINUS BRADYCARDIA BORDERLINE ECG UNCONFIRMED REPORT Electronically signed by : Douglas Souza MD 07/18/2023 19:24:26
[2023-07-17 22:02] LABS: Basophils # 0.1 K/mm3 (0-0.2); Basophils % 0.8 % (0.1-2.0); Eosinophils # 0.2 K/mm3 (0.0-0.4); Eosinophils % 2.5 % (0.1-12.0); Hematocrit 41.3 % (42.0-52.0); Hemoglobin 15.3 g/dL (14.1-18.0); Lymphocytes # 4.3 K/mm3 (0.7-4.5); Lymphocytes % 51.2 % (10-50); Mean Corpuscular Hemoglobin 32.8 pg (27.0-31.2); Mean Corpuscular Volume 88.7 fl (80-94); Mean Platelet Volume 8.2 fl (7.4-10.4); Monocytes # 0.5 K/mm3 (0.1-1.0); Monocytes % 6.5 % (1.7-9.3); Neutrophils # 3.2 K/mm3 (1.8-7.8); Platelet Count 257 K/mm3 (142-424); Red Blood Count 4.66 M/mm3 (4.60-6.20); White Blood Count 8.3 K/mm3 (4.8-10.8)
[2023-07-17 22:06] LABS: Chloride 105 mmol/L (98-107); Sodium 139 mmol/L (136-145)
[2023-07-17 22:07] LABS: Potassium 3.8 mmoL/L (3.5-5.1)
[2023-07-17 22:09] LABS: Alanine Aminotransferase 55 U/L (12-78); Albumin/Globulin Ratio 1.4 (1.1-1.8); Alkaline Phosphatase 45 U/L (38-126); Anion Gap 8.8 mEq/L (5-15); Aspartate Amino Transferase 45 U/L (17-59); Bilirubin,Total 0.4 mg/dl (0.2-1.3); Blood Urea Nitrogen 13 mg/dl (9-20); Carbon Dioxide 29 mmol/L (22.0-30.0); Creatinine Clearance Estimated 147 mL/min (50-200); Estimated Glomerular Filt Rate 72 ml/min (>60); GFR (African American) 88 ML/MIN (>60); Globulin 2.8 g/dL (1.3-3.2); MANUAL DIFFERENTIAL MANUAL DIFFERENTIAL (MANUAL DIFF); Total Protein,Serum 6.8 g/dl (6.3-8.2)
[2023-07-17 22:10] LABS: Calcium 8.3 mg/dl (8.4-10.2); Glucose 124 mg/dl (74-100)
[2023-07-17 22:27] LABS: Troponin I < 0.01 ng/ml (0.00-0.034)
[2023-07-17 22:30] VITALS: BP 147/79; PULSE 61; O2SAT 95
[2023-07-17 22:31] LABS: Eosinophils % 4 % (0-3); Lymphocytes % 53 % (10-50); Monocytes % 1 % (2-9); Neutrophils % 41 % (42-76); Platelet Estimate Normal; RBC Morphology Normal; Total Cells Counted 100
[2023-07-17 22:50] VITALS: BP 156/91; PULSE 60; O2SAT 94
[2023-07-17 23:00] VITALS: BP 149/91; PULSE 59; O2SAT 95
--- NOTE | 2023-07-17 23:26 | CT_ITS ---
PROCEDURE INFORMATION: Exam: CTA Chest With Contrast Exam date and time: 07/18/2023 12:16 AM Age: 47 years old Clinical indication: Pain; Left-sided; Additional info: L lower chest, L upper abd/l flank pain TECHNIQUE: Imaging protocol: Computed tomographic angiography of the chest with contrast. Exam focused on the arteries. 3D rendering (Not supervised by radiologist): MIP and/or 3D reconstructed images were created by the technologist. Radiation optimization: All CT scans at this facility use at least one of these dose optimization techniques: automated exposure control; mA and/or kV adjustment per patient size (includes targeted exams where dose is matched to clinical indication); or iterative reconstruction. Contrast material: ISOVUE; Contrast volume: 75 ml; Contrast route: INTRAVENOUS (IV); REPORTING DATA: Count of CT and Cardiac NM exams in prior 12 months: This patient has received 2 known CTs and 0 known cardiac nuclear medicine studies in the 12 months prior to the current study. COMPARISON: CR XR CHEST 2V 07/17/2023 10:34 PM FINDINGS: Pulmonary arteries: No large central pulmonary emboli were identified. Assessment of the small peripheral subsegmental branches at multiple levels was limited to nondiagnostic due to gross respiratory motion. Aorta: Aortic assessment limited by early contrast phase and largely nonenhanced status. No aneurysm. No gross dissection within exam limitations. No mediastinal hematoma. Thyroid: The visualized thyroid gland demonstrates no gross abnormality. Lungs: No acute tracheobronchial abnormalities. No gross pulmonary infiltrates or edema pattern. Low lung volumes. Minor subsegmental atelectasis bilaterally. No consolidations. No pulmonary mass lesions are identified. Pleural spaces: No pleural effusion. No pneumothorax. Heart: Heart size normal. Minimal coronary artery calcification. No pericardial effusion. Mediastinal space: The esophagus is largely contracted but demonstrates no gross abnormality. Lymph nodes: No supraclavicular or axillary adenopathy. No mediastinal or hilar adenopathy. Diaphragm: There is a small fatty hernia at the esophageal diaphragmatic hiatus. Bones/joints: No acute osseous abnormalities are identified. Chronic appearing avulsion at the T3 spinous process tip with well corticated margins and no evidence of acute avulsive injury. Minor midthoracic spondylosis. Soft tissues: The soft tissues of the chest wall demonstrate no acute abnormality. IMPRESSION: 1. No large central pulmonary emboli. Assessment of the small peripheral branch vessels was limited by respiratory motion. 2. Low lung volumes with minor subsegmental atelectasis bilaterally. No gross pulmonary infiltrates or edema pattern. 3. Additional nonemergent findings detailed above.
[2023-07-17 23:30] VITALS: BP 136/76; PULSE 60; O2SAT 95
--- NOTE | 2023-07-17 23:38 | HMH.EDGENADL ---
Discharge Plan Disposition Patient Disposition: Home, Self-Care Condition: Good Prescriptions Prescriptions: New polyethylene glycol 3350 [Miralax] 17 gram/dose powder 17 g PO DAILY Qty: 510 0RF senna 8.6 mg capsule 8.6 mg PO DAILY Qty: 30 0RF No Action sildenafil 100 mg tablet 100 mg PO DAILY PRN (Reason: sexual activity) Qty: 10 10RF Rx Instructions: administer 30 minutes to 4 hours before activity Referrals Follow up/Referrals: Clive Neff MD [Primary Care Provider] - See instructions Activity Restrictions/Add. Instructions Additional Instructions/Restrictions: You were evaluated in the emergency department today. Please grinder set up operator your prescription at the pharmacy and use them as prescribed for bowel cleanout. Follow-up with your primary care provider for reassessment. Return to the emergency department for new or worsening symptoms. Clinical Impressions Clinical Impression: Splenomegaly, Constipation, Nephrolithiasis, Diverticulosis Instructions Patient Instructions: DI for Atypical Chest Pain, DI for Constipation Discharge ED Provider: Nataly Nair General Adult HPI General Chief complaint: Chest Pain Stated complaint: cp Time Seen by Provider: 07/17/23 21:58 Mode of Arrival: Ambulatory Source of Information: Patient Limitations: No Limitations Description of Symptoms (Recalled from ER Triage Doc. by RN): pt c/o lt side chest pain with radiating down lt arm that started @ 9:15 History of Present Illness HPI narrative: Patient is a 47-year-old male with a history of diverticulitis and obesity presenting to the emergency department for evaluation with concern for left upper quadrant, left flank, and left chest pain. He reports that he has been having left upper quadrant/left flank pain ever since he had a colonoscopy approximately 2.5 weeks ago. He has seen his primary care provider for this, who is ordered an outpatient CT scan, but he has not been able to get this yet. He denies any other concerns associated, such as fevers, chills, nausea, vomiting, change in bowel movements, rashes, or swelling. Of note, what prompted him to come in tonight is that he developed sudden onset left-sided chest pain at 9:15 PM. It radiated down his left arm. Nothing seems to make it better or worse. It has currently gone away and he is feeling better, but he is still having abdominal pain. Related Data Previous Rx's Medication Instructions Recorded sildenafil 100 mg tablet 100 mg PO DAILY PRN sexual 09/22/22 activity #10 tabs polyethylene glycol 3350 17 17 g PO DAILY #510 grams 07/18/23 gram/dose oral powder (Miralax) sennosides 8.6 mg capsule (senna) 8.6 mg PO DAILY #30 caps 07/18/23 Allergies Allergy/AdvReac Type Severity Reaction Status Date / Time No Known Drug Allergies Allergy Unknown Verified 07/14/23 08:10 [NKDA] [facility] Disclaimer: The information contained in this section may have been updated after the patient was seen, as this information can be updated by other users. Medical History Abnormal electrocardiography Allergies Blood clot in eye Chest pain Diverticulitis Dyspnea History of gastroesophageal reflux (GERD) History of stroke Left lower quadrant abdominal pain Left upper quadrant abdominal pain Loss of vision Obesity Surgical History History of knee surgery Family History Other Cancer Diabetes Family history of diabetes mellitus type II Family history of hypertension Heart attack Hypertension No significant family history Social History Smoking Status: Never smoker alcohol intake: never substance use type: denies use current occupational status: other Travel in the last 8 weeks: None ROS Obtained: Yes
[2023-07-18] VITALS: BP 133/76; PULSE 54; O2SAT 96
--- NOTE | 2023-07-18 | CT_ITS ---
PROCEDURE INFORMATION: Exam: CT Abdomen And Pelvis With Contrast Exam date and time: 07/18/2023 12:16 AM Age: 47 years old Clinical indication: Abdominal pain; Additional info: L lower chest, L upper abd/l flank pain TECHNIQUE: Imaging protocol: Computed tomography of the abdomen and pelvis with contrast. Radiation optimization: All CT scans at this facility use at least one of these dose optimization techniques: automated exposure control; mA and/or kV adjustment per patient size (includes targeted exams where dose is matched to clinical indication); or iterative reconstruction. Contrast material: ISOVUE; Contrast volume: 75 ml; Contrast route: IV; REPORTING DATA: Count of CT and Cardiac NM exams in prior 12 months: This patient has received 2 known CTs and 0 known cardiac nuclear medicine studies in the 12 months prior to the current study. COMPARISON: CT ABDOMEN PELVIS W CON 02/13/2023 4:46 PM FINDINGS: Liver: Normal contour. Subcentimeter circumscribed probable cyst in the left hepatic lobe is unchanged and does not require further assessment. No intrahepatic biliary ductal dilatation. Gallbladder and bile ducts: The gallbladder is partially contracted but otherwise unremarkable. Nondilated common bile duct. Pancreas: Normal. No inflammatory changes or ductal dilation. Spleen: Chronic mild splenomegaly unchanged measuring 14.5 cm. No focal splenic lesions. Adrenal glands: Normal. No adrenal mass. Kidneys and ureters: No acute abnormalities. No hydronephrosis or hydroureter. 3 mm nonobstructive stone in the lower pole of the right kidney. 2 mm nonobstructive stone in the interpolar left kidney. No ureteral stones. Stomach and bowel: The stomach is unremarkable. The small bowel is nondilated with no gross abnormality. There is a moderate amount of stool distributed in the mid and proximal colon suggesting possible constipation. Moderate diverticulosis involving the distal colon without evidence of acute diverticulitis. Appendix: The appendix is normal in caliber and demonstrates no evidence of appendicitis. Intraperitoneal space: No free fluid or air. Vasculature: No acute process. No abdominal aortic aneurysm. Lymph nodes: No adenopathy. Urinary bladder: The urinary bladder is largely contracted without gross abnormality. Reproductive: Moderately enlarged prostate. Bones/joints: No acute osseous abnormalities. Chronic bilateral L5 spondylolysis with moderate disc degenerative changes L5-S1 and slight 2 mm anterolisthesis. Soft tissues: Very small fatty umbilical hernia . No evidence of associated bowel herniation or strangulation. IMPRESSION: 1. No definite acute findings. 2. There is mild chronic splenomegaly which is unchanged. No focal splenic lesions or evidence of acute splenic injury. 3. There are small bilateral nonobstructive renal stones. No ureteral stones or hydronephrosis. 4. There is moderate stool in the mid and proximal colon suggesting possible constipation. 5. Moderate distal colonic diverticulosis without diverticulitis. 6. Additional nonemergent findings detailed above.
[2023-07-18 00:27] LABS: Microscopic, Urine URINE MICROSCOPIC (MICROSCOPIC)
[2023-07-18 00:28] LABS: Appearance,Urine CLEAR (Clear); Bilirubin,Urine Negative (Negative); Blood, Urine Negative (Negative); Color,Urine YELLOW (Yellow); Glucose,Urine (UA) Negative (Negative); Ketones,Urine Negative (Negative); Leukocyte Esterase,Urine Negative (Negative); Nitrate,Urine Negative (Negative); Protein,Urine Negative (Negative); Specific Gravity, Urine 1.025 (1.005-1.030); Urobilinogen,Urine 0.2 EU/dl (0.2)
[2023-07-18 00:30] VITALS: BP 138/86; PULSE 59; O2SAT 96
[2023-07-18 00:40] LABS: Squamous Epithelial Cell,Urine Occasional #/hpf (0-5); WBC,Urine Occasional #/hpf (0-3)
[2023-07-18 01:00] VITALS: BP 130/80; PULSE 56; O2SAT 95
[2023-07-18 01:25] LABS: Troponin I < 0.01 ng/ml (0.00-0.034)
[2023-07-18 01:31] VITALS: BP 130/80; PULSE 54; RESP 19; TEMP 36.8; O2SAT 97
== END 2023-07-18 01:51 | disposition home or self-care (01) ==
PROVIDERS: Emergency Medicine; Emergency Provider Emergency Medicine; PCP Family Medicine
DX: R10.12 Left upper quadrant pain (principal); R07.89 Other chest pain; R00.1 Bradycardia, unspecified; R16.1 Splenomegaly, not elsewhere classified; N20.0 Calculus of kidney; K57.90 Diverticulosis of intestine, part unspecified, without perforation or abscess without bleeding; K59.00 Constipation, unspecified; E66.9 Obesity, unspecified
CPT/HCPCS: 71046; 71275; 74177; 80053; 81001; 84484; 85007; 85025; 93005; 96374; 99285; Q9967

== ENCOUNTER 2023-08-07 10:06 | Emergency (ER) | payer OTHER, SELFPAY ==
[2023-08-07 10:07] VITALS: BP 130/87; PULSE 63; RESP 18; TEMP 36.4; O2SAT 98; BMI 36.6
--- NOTE | 2023-08-07 10:37 | HMH.EDGENADL ---
Discharge Plan Disposition Patient Disposition: Home, Self-Care Chief Complaint: Abdominal Pain Prescriptions Prescriptions: No Action sildenafil 100 mg tablet 100 mg PO DAILY PRN (Reason: sexual activity) Qty: 10 10RF Rx Instructions: administer 30 minutes to 4 hours before activity prednisone 20 mg tablet See Rx Instructions .ROUTE .COMPLEX Qty: 15 0RF Rx Instructions: two daily for 5 days, one daily for 5 days acetaminophen-codeine 300-30 mg tablet 1 tab PO TID PRN (Reason: pain) Qty: 30 1RF polyethylene glycol 3350 [Miralax] 17 gram/dose powder 17 g PO DAILY Qty: 510 0RF senna 8.6 mg capsule 8.6 mg PO DAILY Qty: 30 0RF Referrals Follow up/Referrals: Clive Neff MD [Primary Care Provider] - See instructions Quincy Spangler MD [Staff Physician] - See instructions Activity Restrictions/Add. Instructions Additional Instructions/Restrictions: At this time it was felt you are safe to be discharged home. If new or worsening symptoms please do not hesitate to return the emergency department. Please follow-up with gastroenterology and Dr. Spangler as soon as you are able. Clinical Impressions Clinical Impression: Abdominal pain Instructions Patient Instructions: DI for Acute Abdominal Pain Discharge ED Provider: Parveen Devlin General Adult HPI General Chief complaint: Abdominal Pain Stated complaint: phy ref, abd pain Time Seen by Provider: 08/07/23 10:20 Mode of Arrival: Ambulatory Limitations: No Limitations Description of Symptoms (Recalled from ER Triage Doc. by RN): PT REPORTS ONGOING ABDOMINAL PAIN, OVER SEVERAL YEARS. HAS HAD RECENT ED VISIT, SEEN AT PCP THIS AM, INSTRUCTED TO BE EVALUATED IN ED. REPORTS LEFT SIDED ABDOMINAL PAIN. PAIN IS INTERMITTENT, WORSENED LAST NIGHT. DENIES N/V/D, LAST NORMAL BM THIS AM History of Present Illness HPI narrative: Patient is a 47-year-old male with past medical history of chronic left upper quadrant pain and splenomegaly who presents emergency department for evaluation of left upper quadrant pain. History is obtained by patient at bedside. He has had ongoing abdominal pain that is been evaluated with multiple CTs without definitive etiology. He followed up with Dr. Neff who was reportedly referring him to gastroenterology. He was instructed to come here for evaluation. Patient's pain is chronic however is worse than normal today. No vomiting. No other acute complaints at this time. Related Data Previous Rx's Medication Instructions Recorded sildenafil 100 mg tablet 100 mg PO DAILY PRN sexual 09/22/22 activity #10 tabs polyethylene glycol 3350 17 17 g PO DAILY #510 grams 07/18/23 gram/dose oral powder (Miralax) sennosides 8.6 mg capsule (senna) 8.6 mg PO DAILY #30 caps 07/18/23 acetaminophen 300 mg-codeine 30 mg 1 tab PO TID PRN pain #30 tabs 07/31/23 tablet prednisone 20 mg tablet See Rx Instructions .Route 07/31/23 .COMPLEX #15 tabs Allergies Allergy/AdvReac Type Severity Reaction Status Date / Time No Known Drug Allergies Allergy Unknown Verified 07/31/23 08:17 [NKDA] [facility] Disclaimer: The information contained in this section may have been updated after the patient was seen, as this information can be updated by other users. Medical History Abnormal electrocardiography Allergies Blood clot in eye Chest pain Diverticulitis Dyspnea History of gastroesophageal reflux (GERD) History of stroke Left lower quadrant abdominal pain Left upper quadrant abdominal pain Loss of vision R eye Obesity Surgical History History of knee surgery r-x2 Family History Other Cancer Diabetes Family history of diabetes mellitus type II Family history of hypertension Heart attack Hypertension No significant family hist
[2023-08-07 10:38] LABS: Microscopic, Urine URINE MICROSCOPIC (MICROSCOPIC)
[2023-08-07 10:43] LABS: Basophils % 0.4 % (0.1-2.0); Eosinophils # 0.1 K/mm3 (0.0-0.4); Eosinophils % 1.1 % (0.1-12.0); Hematocrit 43.6 % (42.0-52.0); Hemoglobin 16.2 g/dL (14.1-18.0); Lymphocytes # 1.9 K/mm3 (0.7-4.5); Lymphocytes % 23.5 % (10-50); Mean Corpuscular Hemoglobin 32.1 pg (27.0-31.2); Mean Corpuscular Volume 86.7 fl (80-94); Mean Platelet Volume 7.4 fl (7.4-10.4); Monocytes # 0.3 K/mm3 (0.1-1.0); Monocytes % 4.2 % (1.7-9.3); Neutrophils # 5.6 K/mm3 (1.8-7.8); Neutrophils % 70.8 % (37.0-80.0); Platelet Count 259 K/mm3 (142-424); Red Blood Count 5.03 M/mm3 (4.60-6.20); Red Cell Distribution Width 13.9 % (11.5-17.5); White Blood Count 7.9 K/mm3 (4.8-10.8)
[2023-08-07 11:00] VITALS: BP 118/74; PULSE 64; RESP 20; O2SAT 96
[2023-08-07 11:01] LABS: Appearance,Urine CLEAR (Clear); Bilirubin,Urine Negative (Negative); Blood, Urine Negative (Negative); Color,Urine YELLOW (Yellow); Glucose,Urine (UA) Negative (Negative); Ketones,Urine Negative (Negative); Leukocyte Esterase,Urine Negative (Negative); Nitrate,Urine Negative (Negative); Protein,Urine Negative (Negative); Specific Gravity, Urine <= 1.005 (1.005-1.030); Urobilinogen,Urine 0.2 EU/dl (0.2)
[2023-08-07 11:05] LABS: Alanine Aminotransferase 80 U/L (12-78); Albumin Level 4.3 g/dl (3.5-5.0); Albumin/Globulin Ratio 1.5 (1.1-1.8); Aspartate Amino Transferase 53 U/L (17-59); Blood Urea Nitrogen 13 mg/dl (9-20); Calcium 8.9 mg/dl (8.4-10.2); Chloride 105 mmol/L (98-107); Creatinine Clearance Estimated 162 mL/min (50-200); Estimated Glomerular Filt Rate 81 ml/min (>60); GFR (African American) 98 ML/MIN (>60); Globulin 2.8 g/dL (1.3-3.2); Total Protein,Serum 7.1 g/dl (6.3-8.2)
[2023-08-07 11:13] LABS: Alkaline Phosphatase 43 U/L (38-126); Anion Gap 12.1 mEq/L (5-15); Bilirubin,Total 0.4 mg/dl (0.2-1.3); Carbon Dioxide 25 mmol/L (22.0-30.0); Glucose 121 mg/dl (74-100); Lipase 216 U/L (23-300); Potassium 4.1 mmoL/L (3.5-5.1); Sodium 138 mmol/L (136-145)
[2023-08-07 11:30] VITALS: BP 107/75; PULSE 76; RESP 18; O2SAT 95
[2023-08-07 11:38] LABS: Bacteria,Urine Trace /lpf; Squamous Epithelial Cell,Urine Occasional #/hpf (0-5); WBC,Urine Occasional #/hpf (0-3)
--- NOTE | 2023-08-07 11:53 | CT_ITS ---
FINAL REPORT TECHNIQUE: Pre-and postcontrast images of the abdomen and pelvis were performed by computed tomography. Extensive 3-D reconstruction images were performed. A CTA was performed. This study was performed with techniques to keep radiation doses as low as reasonably achievable (ALARA). Individualized dose reduction techniques using automated exposure control or adjustment of mA and/or kV according to the patient''s size were employed. CLINICAL HISTORY: LUQ pain, splenomegaly COMPARISON: 07/18/2023 FINDINGS: ABDOMEN AND PELVIS: The lung bases are clear. Gallbladder is present. Spleen is mildly enlarged at 14 cm. Liver is homogeneous. Adrenal glands and pancreas are without acute abnormality. There may be very small, bilateral renal stones. There is no hydronephrosis. The appendix is normal. There is diverticulosis without evidence of diverticulitis. There is no evidence of small bowel obstruction. There is no lymphadenopathy or ascites. No acute osseous abnormality is identified. CTA: The abdominal aorta is proper caliber. The SMA, celiac axis, and LAWRENCE are patent. There is no significant stenosis or calcification. The renal arteries are patent bilaterally. Common iliac, external iliac and iliac arteries are patent. IMPRESSION: No aortic aneurysm or dissection. Branch vessels are without stenosis. Mild splenomegaly. Reviewed, Interpreted and Dictated by Roula Blake MD Transcribed by Loren Fields Authenticated and [facility]
[2023-08-07 12:00] VITALS: BP 113/72; PULSE 61; RESP 20; O2SAT 94
[2023-08-07 12:30] VITALS: BP 120/88; PULSE 66; RESP 20; O2SAT 97
--- NOTE | 2023-08-07 12:30 | PC.NURSE ---
Pt resting in bed. No needs or complaints voiced. Call light remains within reach.
--- NOTE | 2023-08-07 12:34 | PC.NURSE ---
PT AMBULATING UP TO BR
--- NOTE | 2023-08-07 13:37 | PC.NURSE ---
DR URIOSTEGUI AT BEDSIDE TO UPDATE PT
[2023-08-07 13:52] VITALS: BP 141/92; PULSE 65; RESP 20; TEMP 36.8; O2SAT 97
== END 2023-08-07 13:56 | disposition home or self-care (01) ==
PROVIDERS: Emergency Provider Emergency Medicine; PCP Family Medicine
DX: R10.12 Left upper quadrant pain (principal); R16.1 Splenomegaly, not elsewhere classified; E66.9 Obesity, unspecified
CPT/HCPCS: 74174; 80053; 81001; 83690; 85025; 96374; 96375; 99285; J0131; J2405; Q9967

== ENCOUNTER 2023-08-10 12:34 | Observation (INO) | payer OTHER, SELFPAY ==
[2023-08-10] VITALS (14 sets, daily range): BP systolic 113–138; BP diastolic 65–96; PULSE 60–83; RESP 16–18; TEMP 36.6–36.7; O2SAT 95–97; BMI 35.4; BMI 35.6
--- NOTE | 2023-08-10 12:48 | HMH.EDGENADL ---
Discharge Plan Disposition Patient Disposition: Admitted Condition: Good Clinical Impressions Clinical Impression: Abdominal pain, Bloody stool Discharge ED Provider: Nataly Nair General Adult HPI <Parveen Devlin MD - Last Filed: 08/10/23 15:45> General Chief complaint: Abdominal Pain Stated complaint: LT ABDOMINAL PAIN, BLOOD IN STOOL Time Seen by Provider: 08/10/23 12:43 History of Present Illness HPI narrative: Patient is a 47-year-old male with past medical history of splenomegaly, pancolonic diverticulosis, chronic left-sided abdominal pain, previous polyp status post polypectomy who presents emergency department for evaluation of abdominal pain. Patient was seen by me previously on 08/07 for abdominal pain and was ultimately discharged. In summary patient had a colonoscopy which revealed hemorrhoids, sigmoid colon polyps and rectal polyps, diverticulosis. Ultimately he has received work-up including hematologic labs, CT abdomen pelvis IV contrast, CTA abdomen and pelvis, CT pulmonary embolism protocol ultimately which have been remarkable only for splenomegaly, small bilateral nonobstructive renal stones. Since patient was discharged home he has had 1 bloody bowel movement per day and has persistent left upper quadrant pain that is moderate to severe in intensity. He presented to PCP who referred him here for continued evaluation today after discussion with surgery. Related Data Previous Rx's Medication Instructions Recorded sildenafil 100 mg tablet 100 mg PO DAILY PRN sexual 09/22/22 activity #10 tabs polyethylene glycol 3350 17 17 g PO DAILY #510 grams 07/18/23 gram/dose oral powder (Miralax) sennosides 8.6 mg capsule (senna) 8.6 mg PO DAILY #30 caps 07/18/23 acetaminophen 300 mg-codeine 30 mg 1 tab PO TID PRN pain #30 tabs 07/31/23 tablet Allergies Allergy/AdvReac Type Severity Reaction Status Date / Time No Known Drug Allergies Allergy Unknown Verified 08/10/23 10:35 [NKDA] PFSH <Parveen Devlin MD - Last Filed: 08/10/23 15:45> [facility] Disclaimer: The information contained in this section may have been updated after the patient was seen, as this information can be updated by other users. Medical History Abnormal electrocardiography Allergies Blood clot in eye Chest pain Diverticulitis Dyspnea History of gastroesophageal reflux (GERD) History of stroke Left lower quadrant abdominal pain Left upper quadrant abdominal pain Loss of vision R eye Obesity Surgical History History of knee surgery r-x2 Family History Other Cancer Diabetes Family history of diabetes mellitus type II Family history of hypertension Heart attack Hypertension No significant family history Social History Smoking Status: Never smoker alcohol intake: never substance use type: denies use current occupational status: other Travel in the last 8 weeks: None <Parveen Devlin MD - Last Filed: 08/10/23 15:45> ROS Obtained: Yes Systems reviewed as appropriate & no additional complaints except as documented Physical Exam <Parveen Devlin MD - Last Filed: 08/10/23 15:45> General General appearance: alert and in no apparent distress Head Head exam: atraumatic and normocephalic Eye Eye exam: Present PERRL and EOMI ENT ENT exam: Present mucous membranes moist Neck Neck exam: Present normal inspection Chest Chest inspection: Present normal inspection and symmetric chest wall rise Respiratory Respiratory exam: Present normal lung sounds bilaterally; Absent respiratory distress Cardiovascular Cardiovascular exam: Present regular rate and normal rhythm Abdominal Exam Abdominal exam: Present soft and tenderness (Mild, left upper quadrant); Absent guardi
--- NOTE | 2023-08-10 12:55 | ECG_ITS ---
APPROVED REPORT Exam: Resting ECG HR:52 bpm ECG Measurements Heart Rate 52 AXES CO 161 P 6 QRSd 100 QRS 34 QT 435 T 27 QTc 415 Conclusion SINUS BRADYCARDIA BORDERLINE ECG UNCONFIRMED REPORT Electronically signed by : Douglas Souza MD 08/10/2023 17:29:00
[2023-08-10 13:14] LABS: Basophils # 0.1 K/mm3 (0-0.2); Basophils % 0.7 % (0.1-2.0); Eosinophils # 0.1 K/mm3 (0.0-0.4); Eosinophils % 1.5 % (0.1-12.0); Hematocrit 43.1 % (42.0-52.0); Hemoglobin 15.5 g/dL (14.1-18.0); Lymphocytes # 3.2 K/mm3 (0.7-4.5); Lymphocytes % 42.5 % (10-50); Mean Corpuscular HGB Conc 36.1 g/dL (31.8-35.4); Mean Corpuscular Hemoglobin 32.2 pg (27.0-31.2); Mean Corpuscular Volume 89.2 fl (80-94); Mean Platelet Volume 8.1 fl (7.4-10.4); Monocytes # 0.5 K/mm3 (0.1-1.0); Monocytes % 6.1 % (1.7-9.3); Neutrophils # 3.7 K/mm3 (1.8-7.8); Neutrophils % 49.1 % (37.0-80.0); Platelet Count 278 K/mm3 (142-424); Red Blood Count 4.83 M/mm3 (4.60-6.20); Red Cell Distribution Width 13.7 % (11.5-17.5); White Blood Count 7.5 K/mm3 (4.8-10.8)
[2023-08-10 13:43] LABS: Alanine Aminotransferase 75 U/L (12-78); Albumin Level 4.4 g/dl (3.5-5.0); Albumin/Globulin Ratio 1.6 (1.1-1.8); Alkaline Phosphatase 46 U/L (38-126); Anion Gap 12.9 mEq/L (5-15); Aspartate Amino Transferase 71 U/L (17-59); Bilirubin,Total 1.2 mg/dl (0.2-1.3); Blood Urea Nitrogen 14 mg/dl (9-20); Calcium 9.2 mg/dl (8.4-10.2); Carbon Dioxide 28 mmol/L (22.0-30.0); Chloride 101 mmol/L (98-107); Creatinine Clearance Estimated 130 mL/min (50-200); Estimated Glomerular Filt Rate 65 ml/min (>60); GFR (African American) 79 ML/MIN (>60); Globulin 2.8 g/dL (1.3-3.2); Glucose 109 mg/dl (74-100); Potassium 3.9 mmoL/L (3.5-5.1); Sodium 138 mmol/L (136-145); Total Protein,Serum 7.2 g/dl (6.3-8.2)
--- NOTE | 2023-08-10 14:17 | PC.NURSE ---
waiting cfo controller back from dr. holt
--- NOTE | 2023-08-10 14:23 | PC.NURSE ---
SHOBHA Devlin speaking with Dr. Schneider
--- NOTE | 2023-08-10 14:24 | PC.NURSE ---
Dr. Devlin s/w Dr. Schneider for consult
--- NOTE | 2023-08-10 14:51 | CT_ITS ---
PROCEDURE INFORMATION: Exam: CT Abdomen And Pelvis With Contrast Exam date and time: 08/10/2023 5:59 PM Age: 47 years old Clinical indication: Abdominal pain; Other: Left side; Additional info: Oral iv, 2hr wait time- left abd pain/bloody stool TECHNIQUE: Imaging protocol: Computed tomography of the abdomen and pelvis with contrast. Radiation optimization: All CT scans at this facility use at least one of these dose optimization techniques: automated exposure control; mA and/or kV adjustment per patient size (includes targeted exams where dose is matched to clinical indication); or iterative reconstruction. Contrast material: ISOVUE 370; Contrast volume: 70 ml; Contrast route: IV; REPORTING DATA: Count of CT and Cardiac NM exams in prior 12 months: This patient has received 5 known CTs and 0 known cardiac nuclear medicine studies in the 12 months prior to the current study. COMPARISON: CT ANGIO ABDOMEN PELVIS 08/07/2023 1:14 PM FINDINGS: Tubes, catheters and devices: None noted. Lungs: Lung bases appear clear. Heart: No significant coronary calcifications. No cardiomegaly. No significant pericardial effusion. Liver: Normal. No mass. Gallbladder and bile ducts: Normal. No calcified stones. No ductal dilation. Pancreas: Normal. No ductal dilation. Spleen: Normal. No splenomegaly. Adrenal glands: Normal. No mass. Kidneys and ureters: Punctate calcification in the right lower pole calyx nonobstructive. No hydronephrosis. Stomach and bowel: Colonic diverticulosis without diverticulitis. No obstruction. No mucosal thickening. Appendix: Retrocecal appendix is well visualized. No evidence of appendicitis. Intraperitoneal space: Unremarkable. No free air. No significant fluid collection. Retroperitoneal space: No significant retroperitoneal inflammatory changes are noted. Vasculature: Unremarkable. No abdominal aortic aneurysm. Lymph nodes: Unremarkable. No enlarged lymph nodes. Urinary bladder: Unremarkable as visualized. Reproductive: Unremarkable as visualized. Bones/joints: Unremarkable. No acute fracture. Soft tissues: Unremarkable. IMPRESSION: 1. Diverticulosis without diverticulitis. 2. Punctate calcification left lower pole calyx appears nonobstructive.
--- NOTE | 2023-08-10 14:57 | PC.NURSE ---
Pt completed his oral contrast at 1450, [employer] notified of this. Per protocol will wait 2 hr for contrast to reach descending colon.
--- NOTE | 2023-08-10 16:53 | PC.NURSE ---
Patient to CT
--- NOTE | 2023-08-10 17:58 | PC.NURSE ---
on the phone with
--- NOTE | 2023-08-10 19:52 | PC.NURSE ---
Rounded on patient; call light within reach
--- NOTE | 2023-08-10 20:05 | PC.NURSE ---
OBSERVATION ADMISSION TO 208 TO [facility]ICE OF THE HOSPITAL[facility] WITH DX OF ABDOMINAL PAIN, NAUSEA AND VOMITING.
--- NOTE | 2023-08-10 20:26 | PC.NURSE ---
Called report to [facility]
--- NOTE | 2023-08-10 20:43 | PC.NURSE ---
Rounded on patient; call light within reach of patient. Called the floor to see if they were coming to get the patient.
--- NOTE | 2023-08-10 20:59 | PC.NURSE ---
pt to floor via wheelchair at this time
--- NOTE | 2023-08-10 20:59 | EXP.HP ---
History of Present Illness *Admission Date: 08/10/23 *Reason for visit:: abd pain with bloody stool *History of present illness: This is a 47-year-old male with PMHx of splenomegaly, pancolonic diverticulosis, chronic left-sided abdominal pain, previous polyp status post polypectomy who presents emergency department for evaluation of abdominal pain. Patient was seen by me previously on 08/07 for abdominal pain and was ultimately discharged. In summary patient had a colonoscopy which revealed hemorrhoids, sigmoid colon polyps and rectal polyps, diverticulosis. Ultimately he has received work-up including hematologic labs, CT abdomen pelvis IV contrast, CTA abdomen and pelvis, CT pulmonary embolism protocol ultimately which have been remarkable only for splenomegaly, small bilateral nonobstructive renal stones. Since patient was discharged home he has had 1 bloody bowel movement per day and has persistent left upper quadrant pain that is moderate to severe in intensity. He presented to PCP who referred him here for continued evaluation today after discussion with surgery. [facility] Disclaimer: The information contained in this section may have been updated after the patient was seen, as this information can be updated by other users. Medical History (Updated 08/11/23 @ 03:07 by Berto Pollard APRN) Abnormal electrocardiography Allergies Blood clot in eye Chest pain Diverticulitis Dyspnea History of gastroesophageal reflux (GERD) History of stroke Left lower quadrant abdominal pain Left upper quadrant abdominal pain Loss of vision Obesity Surgical History History of knee surgery Family History Other Cancer Diabetes Family history of diabetes mellitus type II Family history of hypertension Heart attack Hypertension No significant family history Social History (Updated 08/10/23 @ 22:23 by Sada Bailey RN) Smoking Status: Former smoker alcohol intake: never substance use type: denies use current occupational status: employed and other Travel in the last 8 weeks: Inside the [place] Review of Systems Review of Systems Review of systems:: pertinent systems reviewed and negative unless documented below Meds Home Medications and Allergies Home Medications Medication Instructions Recorded Confirmed Type sildenafil 100 mg tablet 100 mg PO DAILY PRN sexual 09/22/22 08/10/23 Rx activity #10 tabs acetaminophen 300 mg-codeine 30 mg 1 tab PO TID PRN pain #30 tabs 07/31/23 08/10/23 Rx tablet polyethylene glycol 3350 17 17 g PO DAILY PRN Constipation 08/10/23 08/10/23 History gram/dose oral powder (Miralax) sennosides 8.6 mg capsule (senna) 8.6 mg PO DAILY PRN stool softener 08/10/23 08/10/23 History pantoprazole 40 mg tablet,delayed 40 mg PO HS 30 days #30 tabs 08/11/23 Rx release sucralfate 1 gram tablet 1 g PO ACHS 15 days #60 tabs 08/11/23 Rx New Prescriptions to Start Prescriptions: pantoprazole Chao Reynaga sucralfate Chao Reynaga Allergies Allergy/AdvReac Type Severity Reaction Status Date / Time No Known Drug Allergies Allergy Unknown Verified 08/10/23 10:35 [NKDA] Exam Data for Last 24 hours Vital signs and Labs for Last 24 Hours: Temp Pulse Resp BP Pulse Ox O2 Del Method 98 F 67 18 138/93 H 97 Room Air 08/10/23 20:27 08/10/23 20:27 08/10/23 20:27 08/10/23 20:27 08/10/23 20:00 08/10/23 20:27 Laboratory Results - last 24 hr 08/10/23 13:05: WBC 7.5, RBC 4.83, Hgb 15.5, Hct 43.1, MCV 89.2, MCH 32.2 H, MCHC 36.1 H, RDW 13.7, Plt Count 278, MPV 8.1, Neut % (Auto) 49.1, Lymph % (Auto) 42.5, Fajardo % (Auto) 6.1, Eos % (Auto) 1.5, Baso % (Auto) 0.7, Neut # (Auto) 3.7, Lymph # (Auto) 3.2, Fajardo # (Auto) 0.5, Eos # (Auto) 0.1, Baso # (Auto) 0.1, Sodium 138, Potassium 3.9, Chloride 10
[2023-08-10 21:53] LABS: INR 1.04 (0.9-1.1); Prothrombin Time 11.2 seconds (10.1-12.5)
[2023-08-11] VITALS (13 sets, daily range): BP systolic 111–134; BP diastolic 67–92; PULSE 58–85; RESP 16–18; TEMP 36.6–36.8; O2SAT 92–98; BMI 35.6
--- NOTE | 2023-08-11 03:22 | US_ITS ---
FINAL REPORT CLINICAL HISTORY: abdominal pain. splenomagaly FINDINGS: LEFT UPPER QUADRANT ULTRASOUND Sonographic images of the left upper quadrant were obtained. The spleen is enlarged measuring 14.8 cm. There is no focal splenic lesion. The left kidney measures 11.5 cm in length. There is no mass or hydronephrosis. Reviewed, Interpreted and Dictated by Roula Blake MD Transcribed by Dipika Hodge Authenticated and [facility]
--- NOTE | 2023-08-11 06:20 | EXP.SURG.CON ---
History of Present Illness *Admission Date: 08/10/23 *Reason for visit:: Abdominal pain *History of present illness: Patient is a 47-year-old white male who has had intractable somewhat chronic left upper quadrant pain.. He has had some degree of pain for several years stating that his pain began a couple of years ago at which time he was diagnosed with mild uncomplicated diverticulitis. He had colonoscopy at this facility by gastroenterology on 06/28/2023. At that time procedure was uneventful. He had some diverticulosis without diverticulitis and had a couple of tiny diminutive polyps removed. He states about 1 week after his colonoscopy he had exacerbation of this chronic pain. He has seen his primary care provider, Dr. Douglas Neff, several times as an outpatient for this. He localizes the pain to the left upper flank area. Occasionally the pain is somewhat worse after eating. He states that it is actually better when he is active and moving. It seems to be worse when he is inactive. He has been seen in the emergency department on multiple occasions recently for this and has had thorough work-up which was unremarkable. He has been seen in his primary care provider's office approximately 4 times over the past few weeks and in the emergency department approximately 4 times. He was seen in his primary care provider's office on 08/10/2023 with this and at that time described the pain as 9 out of 10. He also had noticed some occasional passage of bright red blood with bowel movements over the past several days. He has had thorough work-up and this has included CT scan of the abdomen and pelvis with IV contrast, CTA of the abdomen and pelvis, CTA of the chest. This revealed findings of mild splenomegaly with a spleen of 14 cm. This was actually noted on CT scan going back several years and is stable. Due to the exacerbation of his pain on 08/10/2023 with associated bright red blood per rectum surgery was contacted by his primary care provider and patient was instructed to be seen once again in the emergency department. He underwent thorough work-up once again. This was unremarkable. There were findings only of diverticulosis without diverticulitis. Reported CT scan this time revealed no splenomegaly. Given the patient's significant pain with multiple ER visits plan was made for inpatient admission for pain control, serial exams. He does state that he has had some exacerbation of the pain after eating foods such as hamburger. Exacerbation is about 4 hours later. He has had very limited relief when he belches stating that it only gives him relief for about half a second . [facility] Disclaimer: The information contained in this section may have been updated after the patient was seen, as this information can be updated by other users. Medical History (Updated 08/11/23 @ 03:07 by Berto Pollard APRN) Abnormal electrocardiography Allergies Blood clot in eye Chest pain Diverticulitis Dyspnea History of gastroesophageal reflux (GERD) History of stroke Left lower quadrant abdominal pain Left upper quadrant abdominal pain Loss of vision Obesity Surgical History History of knee surgery Family History Other Cancer Diabetes Family history of diabetes mellitus type II Family history of hypertension Heart attack Hypertension No significant family history Social History (Updated 08/10/23 @ 22:23 by Sada Bailey RN) Smoking Status: Former smoker alcohol intake: never substance use type: denies use current occupational status: employed and other Travel in the last 8 weeks: [place] the [place] Review of Systems Review of Systems Review of systems:: pertinent systems reviewed and negative unless documented below Meds Home Medications and Allergies Home Medications Medication Instructions Igor
[2023-08-11 07:13] LABS: Alanine Aminotransferase 61 U/L (12-78); Albumin Level 3.7 g/dl (3.5-5.0); Albumin/Globulin Ratio 1.5 (1.1-1.8); Alkaline Phosphatase 37 U/L (38-126); Aspartate Amino Transferase 54 U/L (17-59); Bilirubin,Total 0.6 mg/dl (0.2-1.3); Blood Urea Nitrogen 14 mg/dl (9-20); Calcium 8.3 mg/dl (8.4-10.2); Carbon Dioxide 27 mmol/L (22.0-30.0); Chloride 106 mmol/L (98-107); Creatinine Clearance Estimated 143 mL/min (50-200); Estimated Glomerular Filt Rate 72 ml/min (>60); GFR (African American) 88 ML/MIN (>60); Globulin 2.5 g/dL (1.3-3.2); Glucose 106 mg/dl (74-100); Magnesium 2.2 mg/dl (1.6-2.3); Sodium 138 mmol/L (136-145); Total Protein,Serum 6.2 g/dl (6.3-8.2)
--- NOTE | 2023-08-11 08:14 | HMH.PHAINT1 ---
Pharmacy Intervention Comments: verify home meds using list from outpatient pharmacy
[2023-08-11 08:29] LABS: Alanine Aminotransferase 59 U/L (12-78); Albumin Level 3.7 g/dl (3.5-5.0); Alkaline Phosphatase 39 U/L (38-126); Aspartate Amino Transferase 51 U/L (17-59); Bilirubin,Direct 0.1 mg/dl (0.0-0.4); Bilirubin,Indirect 0.4 mg/dL (0.0-0.9); Bilirubin,Total 0.5 mg/dl (0.2-1.3); Bilirubin,Unconjugated 0.4 mg/dL (0.0-1.1); Total Protein,Serum 5.9 g/dl (6.3-8.2)
--- NOTE | 2023-08-11 08:47 | PC.NURSE ---
COURTESY NOTE: morning round completed on pt. pt denies any assistance needs. no new pt requests at this time. Kelby SRNA
--- NOTE | 2023-08-11 09:14 | EXP.ANES.CKL ---
[facility] Disclaimer: The information contained in this section may have been updated after the patient was seen, as this information can be updated by other users. Medical History (Updated 08/11/23 @ 03:07 by Berto Pollard APRN) Abnormal electrocardiography Allergies Blood clot in eye Chest pain Diverticulitis Dyspnea History of gastroesophageal reflux (GERD) History of stroke Left lower quadrant abdominal pain Left upper quadrant abdominal pain Loss of vision Obesity Surgical History History of knee surgery Family History Other Cancer Diabetes Family history of diabetes mellitus type II Family history of hypertension Heart attack Hypertension No significant family history Social History (Updated 08/10/23 @ 22:23 by Sada Bailey RN) Smoking Status: Former smoker alcohol intake: never substance use type: denies use current occupational status: employed and other Travel in the last 8 weeks: Inside the [place] [facility] Anesthesia Checklist Patient Identification Patient Identification: Arm Band, Family and Verbal (Name & ) Structural Data Admitted From: Inpatient Planned Operative Procedure/s: EGD Consent for Planned Operative Procedure(s) Verified: Yes Verified Documents: Surgical Consent and History and Physical NPO Status Verified Time NPO: 20:00 Chart Verification Results Verified: CBC, BMP, PT, PTT, INR and ECG Additional verifications Patient : No Anesthesia Reactions: No Hx Blood Transfusions: No Blood Transfusion Reaction: No Cephalosporin Allergy: No Previous Colonoscopy: Yes Cardiovascular Assessment Heart Sounds: S1 & S2 Pulse Rhythm: Irregular Peripheral Edema: No Airway Assessment Mallampati Score:: Class II C-Spine Mobility Assessed: Yes TMJ Mobility Assessed: Yes Dentition: Good Dentition (Nothing loose per pt.) Neurological Assessment Level of Consciousness: Awake, Alert, Appropriate and Follows Commands Hx Seizures: No Numbness or tingling in extremities: No Anesthesia Plan Anesthesia Risk discussed: Yes Anesthesia Plan: Verified ASA Class: II Anesthesia Type: MAC
--- NOTE | 2023-08-11 09:41 | HMH.SCOPE ---
Procedure: Date: 08/11/23 Patient Date of :: 1975 Procedure Performed:: Esophagogastroduodenoscopy with biopsies Indications:: Patient is a 47-year-old white male who has had intractable somewhat chronic left upper quadrant pain.. He has had some degree of pain for several years stating that his pain began a couple of years ago at which time he was diagnosed with mild uncomplicated diverticulitis. He had colonoscopy at this facility by gastroenterology on 06/28/2023. At that time procedure was uneventful. He had some diverticulosis without diverticulitis and had a couple of tiny diminutive polyps removed. He states about 1 week after his colonoscopy he had exacerbation of this chronic pain. He has seen his primary care provider, Dr. Douglas Neff, several times as an outpatient for this. He localizes the pain to the left upper flank area. Occasionally the pain is somewhat worse after eating. He states that it is actually better when he is active and moving. It seems to be worse when he is inactive. He has been seen in the emergency department on multiple occasions recently for this and has had thorough work-up which was unremarkable. He has been seen in his primary care provider's office approximately 4 times over the past few weeks and in the emergency department approximately 4 times. He was seen in his primary care provider's office on 08/10/2023 with this and at that time described the pain as 9 out of 10. He also had noticed some occasional passage of bright red blood with bowel movements over the past several days. He has had thorough work-up and this has included CT scan of the abdomen and pelvis with IV contrast, CTA of the abdomen and pelvis, CTA of the chest. This revealed findings of mild splenomegaly with a spleen of 14 cm. This was actually noted on CT scan going back several years and is stable. Due to the exacerbation of his pain on 08/10/2023 with associated bright red blood per rectum surgery was contacted by his primary care provider and patient was instructed to be seen once again in the emergency department. He underwent thorough work-up once again. This was unremarkable. There were findings only of diverticulosis without diverticulitis. Reported CT scan this time revealed no splenomegaly. Given the patient's significant pain with multiple ER visits plan was made for inpatient admission for pain control, serial exams. He does state that he has had some exacerbation of the pain after eating foods such as hamburger. Exacerbation is about 4 hours later. He has had very limited relief when he belches stating that it only gives him relief for about half a second . Given the lack of clear etiology for his symptoms plan was made for upper endoscopy to evaluate possible upper GI etiology. Performing Provider:: Carlos Schneider MD Referring Provider:: Douglas Neff Sedation:: MAC sedation Procedure:: Patient history was obtained and appropriate physical examination was performed. Patient's medications and allergies were reviewed. Informed consent was obtained after explaining the benefits, alternatives, and risks of the procedure including, but not limited to, bleeding, perforation, missed lesions, and adverse reaction to anesthesia medications. Patient was transported to endoscopy procedure room. Patient was connected to monitoring devices. Throughout the procedure the patient's blood pressure, pulse, and oxygen saturations were monitored continuously. Patient identification and planned procedure were verified by the staff. Patient was positioned in lateral decubitus position. Olympus endoscope was inserted via the oropharynx. Esophagus was cannulated. Endoscope was advanced. In the distal esophagus there is some linear somewhat acute appearing erosive esophagitis with exudate. Gastroesophageal junction was encountered at approximately 40 cm. Stomach was cannulated and insufflated. Retroflexion revealed small
--- NOTE | 2023-08-11 11:51 | EXP.ANES.I ---
[facility] Anesthesia Record Part I Anesthesia Record I Intake, IV Amount: 400 Hydration: Adequate Estimated blood loss (mL): 1 Urine output (mL): 0 Blood Products used (#): none Blood Pressure: 134/92 SaO2: 98 Pulse Rate: 82 Airway Patency: Patent Respiratory Rate: 18 Temperature: 97.8 F Patient is:: Awake and Stable Stable to PACU at:: 09:49
--- NOTE | 2023-08-11 11:53 | EXP.DC.SUM ---
General Admission date:: 08/10/23 Discharge date: 08/11/23 HPI HPI HPI: Patient is a 47-year-old white male who has had intractable somewhat chronic left upper quadrant pain.. He has had some degree of pain for several years stating that his pain began a couple of years ago at which time he was diagnosed with mild uncomplicated diverticulitis. He had colonoscopy at this facility by gastroenterology on 06/28/2023. At that time procedure was uneventful. He had some diverticulosis without diverticulitis and had a couple of tiny diminutive polyps removed. He states about 1 week after his colonoscopy he had exacerbation of this chronic pain. He has seen his primary care provider, Dr. Douglas Neff, several times as an outpatient for this. He localizes the pain to the left upper flank area. Occasionally the pain is somewhat worse after eating. He states that it is actually better when he is active and moving. It seems to be worse when he is inactive. He has been seen in the emergency department on multiple occasions recently for this and has had thorough work-up which was unremarkable. He has been seen in his primary care provider's office approximately 4 times over the past few weeks and in the emergency department approximately 4 times. He was seen in his primary care provider's office on 08/10/2023 with this and at that time described the pain as 9 out of 10. He also had noticed some occasional passage of bright red blood with bowel movements over the past several days. He has had thorough work-up and this has included CT scan of the abdomen and pelvis with IV contrast, CTA of the abdomen and pelvis, CTA of the chest. This revealed findings of mild splenomegaly with a spleen of 14 cm. This was actually noted on CT scan going back several years and is stable. Due to the exacerbation of his pain on 08/10/2023 with associated bright red blood per rectum surgery was contacted by his primary care provider and patient was instructed to be seen once again in the emergency department. He underwent thorough work-up once again. This was unremarkable. There were findings only of diverticulosis without diverticulitis. Reported CT scan this time revealed no splenomegaly. Given the patient's significant pain with multiple ER visits plan was made for inpatient admission for pain control, serial exams. He does state that he has had some exacerbation of the pain after eating foods such as hamburger. Exacerbation is about 4 hours later. He has had very limited relief when he belches stating that it only gives him relief for about half a second . Hospital Course Hospital Course Hospital Course: 47-year-old male with PMHx of splenomegaly, pancolonic diverticulosis, chronic left-sided abdominal pain, previous polyp status post polypectomy who presents emergency department for evaluation of abdominal pain. Since patient was discharged home he has had 1 bloody bowel movement per day and has persistent left upper quadrant pain that is moderate to severe in intensity. Initial Er work up are grossly unremarkable. CT of abdomen with IV contrast showed diverticulosis without diverticulitis. Imaging reviewed. Surgeon train controller consulted. EGD performed. Esophagitis identified. Remained stable and tolerating p.o. intake. Stable for discharge home for further management as an outpatient. Problems addressed as follows: - Abdominal pain with bloody stool: Patient had previous Hx of internal and external hemorrhoid. Blood likely from hemorrhoids. Had pictures of blood on toilet paper concerning for blood with wiping. Surgery was consulted, taken for EGD with esophagitis identified. Patient started on pantoprazole and sucralfate. Has improvement in pain with GI cocktail. Given findings stable for discharge home to continue treatment for irritation of upper digestive tract. Has follow-up with PCP on Monday. If not showing improvement in the coming weeks, would recommend referr
--- NOTE | 2023-08-11 13:06 | PC.NURSE ---
pt. refused to have bp machine on his arm.
--- NOTE | 2023-08-11 16:06 | HMH.PHAINT1 ---
Pharmacy Intervention Comments: DISCHARGE MEDICATION COUNSELING PROVIDED. DISCUSSED STARTING PROTONIX (AT BEDTIME, FOR REFLUX, HEADACHE POSSIBLE) AND SUCRALFATE (ACHS DOSING, TAKE 30 MINUTES BEFORE MEALS, FOR GI BLEEDING/UPSET, MAY CAUSE CONSTIPATION). PATIENT VERBALIZED NO QUESTIONS AT THIS TIME.
[2023-08-12 09:17] LABS: HIV Screen 4th Generation wRfx Non Reactive (Non Reactive)
[2023-08-13 16:10] LABS: Epstein-Barr Virus Early Ag Ab <9.0 U/mL (0.0-8.9)
[2023-08-18 20:44] LABS: Epstein-Barr DNA Quant, PCR Negative
== END 2023-08-11 16:57 | disposition home or self-care (01) ==
LOC: ER 20:01 → 2ND 20:09
PROVIDERS: Emergency Medicine; Nurse Practitioner Family; Surgery; Admitting Provider Internal Medicine Adolescent Medicine; Emergency Provider Emergency Medicine; PCP Family Medicine; Visit Provider Internal Medicine Adolescent Medicine
PROC: 0DJ08ZZ Inspection of Upper Intestinal Tract, Via Natural or Artificial Opening Endoscopic (ICD-10-PCS; CPT 43235; principal; 2023-08-11 08:20)
DX: K20.90 Esophagitis, unspecified without bleeding (principal); K57.90 Diverticulosis of intestine, part unspecified, without perforation or abscess without bleeding; R10.32 Left lower quadrant pain; Z79.899 Other long term (current) drug therapy
CPT/HCPCS: 43239; 36415; 74177; 76705; 80053; 80076; 83735; 85025; 85610; 86663; 86703; 87799; 93005; 99285; G0378; G0432; J0131; Q9967

== ENCOUNTER → 2023-09-18 08:24 | Outpatient (CLI) | payer OTHER, SELFPAY | PROVIDERS: PCP Student in an Organized Health Care Education/Training Program; Visit Provider Student in an Organized Health Care Education/Training Program | DX: J02.9 Acute pharyngitis, unspecified (principal); R05.9 Cough, unspecified; U07.1 COVID-19 | CPT/HCPCS: 87070; 87635 ==

== ENCOUNTER 2023-10-16 14:49 | Outpatient (CLI) | payer OTHER, SELFPAY ==
--- NOTE | 2023-10-16 14:53 | XR_ITS ---
FINAL REPORT CLINICAL HISTORY: Foot Pain FINDINGS: RIGHT FOOT 3 views of the right foot were obtained. There is no acute fracture or dislocation. Visualized joint spaces are normally aligned. Soft tissues are unremarkable. IMPRESSION: No acute bony abnormality. Reviewed, Interpreted and Dictated by Carlos Rivera III, MD Transcribed by Loren Fields Authenticated and [facility]
--- NOTE | 2023-10-16 14:53 | XR_ITS ---
FINAL REPORT CLINICAL HISTORY: Ankle Pain FINDINGS: LEFT ANKLE Three views demonstrate no acute fracture or dislocation. The visualized joint spaces are normally aligned. There are mild degenerative changes. Small plantar calcaneal spurs are present. The soft tissues are unremarkable. IMPRESSION: No acute bony abnormality. Reviewed, Interpreted and Dictated by Carlos Rivera III, MD Transcribed by Loren Fields Authenticated and [facility]
--- NOTE | 2023-10-16 14:53 | XR_ITS ---
FINAL REPORT CLINICAL HISTORY: Foot Pain twisted in September plantar fasciitis FINDINGS: LEFT FOOT Three views of the left foot demonstrate no acute fracture or dislocation. The visualized joint spaces are normally aligned. The soft tissues are unremarkable. IMPRESSION: No acute bony abnormality. Reviewed, Interpreted and Dictated by Carlos Rivera III, MD Transcribed by Loren Fields Authenticated and [facility]
== END 2023-10-16 23:59 ==
LOC: RAD 14:50
PROVIDERS: PCP Family Medicine; Visit Provider Nurse Practitioner
DX: M79.671 Pain in right foot (principal); M25.572 Pain in left ankle and joints of left foot
CPT/HCPCS: 73610; 73630

== ENCOUNTER 2024-03-21 13:27 | Outpatient (CLI) | payer OTHER, SELFPAY ==
--- NOTE | 2024-03-21 13:35 | MR_ITS ---
FINAL REPORT TECHNIQUE: Multi planar MR imaging of the thoracic spine was obtained with contrast. CLINICAL HISTORY: BACK PAIN 24 ml prohance FINDINGS: The vertebral heights are normal. Marrow signal pattern is unremarkable. Alignment is normal. Thoracic spinal cord shows a normal MR appearance. No significant disc disease is appreciated. There is no canal stenosis present. There is no evidence of abnormal contrast enhancement. IMPRESSION: No acute process. Reviewed, Interpreted and Dictated by Antonette Gregory MD Transcribed by Deana Joseph Authenticated and [facility]
[2024-03-21] MEDS: SODIUM CHLORIDE 0.9% 10ML SYR (RAD ONLY) 10 ML IV (14:30)
[2024-03-21] MEDS: GADOTERIDOL INJ 20ML SYRINGE 20 ML IV (14:31)
[2024-03-21] MEDS: GADOTERIDOL INJ 10ML SYRINGE 4 ML IV (14:31)
== END 2024-03-21 23:59 | disposition home or self-care (01) ==
LOC: RAD 13:28
PROVIDERS: PCP Family Medicine; Visit Provider Physical Medicine & Rehabilitation
DX: M54.6 Pain in thoracic spine (principal)
CPT/HCPCS: 72157; A9576

== ENCOUNTER 2024-03-22 01:20 | Emergency (ER) | payer OTHER, SELFPAY ==
[2024-03-22 01:21] VITALS: BP 173/104; PULSE 50; RESP 20; TEMP 36.9; O2SAT 99; BMI 35.2
--- NOTE | 2024-03-22 01:28 | CT_ITS ---
PROCEDURE INFORMATION: Exam: CT Abdomen And Pelvis Without Contrast Exam date and time: 03/22/2024 1:34 AM Age: 48 years old Clinical indication: Abdominal pain; Flank; Right; Additional info: R flank pain, known stones TECHNIQUE: Imaging protocol: Computed tomography of the abdomen and pelvis without contrast. Radiation optimization: All CT scans at this facility use at least one of these dose optimization techniques: automated exposure control; mA and/or kV adjustment per patient size (includes targeted exams where dose is matched to clinical indication); or iterative reconstruction. COMPARISON: CT ABDOMEN PELVIS W CON 08/10/2023 5:59 PM FINDINGS: Liver: Normal. No mass. Gallbladder and bile ducts: Normal. No calcified stones. No ductal dilation. Pancreas: Normal. No ductal dilation. Spleen: Normal. No splenomegaly. Adrenal glands: Normal. No mass. Kidneys and ureters: 4 mm stone at the right UVJ with moderate right-sided hydroureter and hydronephrosis, the ureter is somewhat increased in density which may represent hematuria. Stomach and bowel: Unremarkable. No obstruction. No mucosal thickening. Appendix: No evidence of appendicitis. Intraperitoneal space: Unremarkable. No free air. No significant fluid collection. Vasculature: Unremarkable. No abdominal aortic aneurysm. Lymph nodes: Unremarkable. No enlarged lymph nodes. Urinary bladder: Unremarkable as visualized. Reproductive: Unremarkable as visualized. Bones/joints: Unremarkable. No acute fracture. Soft tissues: Unremarkable. IMPRESSION: 4 mm stone at the right UVJ with moderate right-sided hydroureter and hydronephrosis, the ureter is somewhat increased in density which may represent hematuria.
[2024-03-22] MEDS: LACTATED RINGERS 1000ML 1,000 ML 999 ML IV (01:34)
[2024-03-22] MEDS: KETOROLAC 30MG/ML VIAL 15 MG IV (01:35)
[2024-03-22] MEDS: ONDANSETRON 4MG/2ML VIAL 4 MG IV (01:35)
[2024-03-22] MEDS: MORPHINE 4MG/ML SYRINGE 4 MG IV (01:35)
[2024-03-22 01:40] LABS: Basophils # 0.1 K/mm3 (0-0.2); Eosinophils # 0.1 K/mm3 (0.0-0.4); Eosinophils % 0.5 % (0.1-12.0); Hematocrit 46.6 % (42.0-52.0); Hemoglobin 16.1 g/dL (14.1-18.0); Lymphocytes # 3.8 K/mm3 (0.7-4.5); Lymphocytes % 27.3 % (10-50); Mean Corpuscular HGB Conc 34.5 g/dL (31.8-35.4); Mean Corpuscular Hemoglobin 31.7 pg (27.0-31.2); Mean Corpuscular Volume 91.8 fl (80-94); Mean Platelet Volume 7.9 fl (7.4-10.4); Monocytes # 0.8 K/mm3 (0.1-1.0); Monocytes % 5.5 % (1.7-9.3); Neutrophils # 9.2 K/mm3 (1.8-7.8); Neutrophils % 65.6 % (37.0-80.0); Platelet Count 372 K/mm3 (142-424); Red Blood Count 5.07 M/mm3 (4.60-6.20); Red Cell Distribution Width 14.3 % (11.5-17.5)
[2024-03-22 01:47] LABS: Alanine Aminotransferase 44 U/L (12-78); Albumin Level 4.3 g/dl (3.5-5.0); Albumin/Globulin Ratio 1.4 (1.1-1.8); Alkaline Phosphatase 51 U/L (38-126); Anion Gap 11.7 mEq/L (5-15); Aspartate Amino Transferase 42 U/L (17-59); Bilirubin,Total 0.6 mg/dl (0.2-1.3); Blood Urea Nitrogen 22 mg/dl (9-20); Calcium 9.2 mg/dl (8.4-10.2); Carbon Dioxide 28 mmol/L (22.0-30.0); Chloride 103 mmol/L (98-107); Creatinine Clearance Estimated 140 mL/min (50-200); Estimated Glomerular Filt Rate 72 ml/min (>60); GFR (African American) 87 ML/MIN (>60); Glucose 122 mg/dl (74-100); Potassium 3.7 mmoL/L (3.5-5.1); Sodium 139 mmol/L (136-145); Total Protein,Serum 7.3 g/dl (6.3-8.2)
--- NOTE | 2024-03-22 01:56 | ED_ITS ---
Discharge Plan Disposition Patient Disposition: Home, Self-Care Condition: Good Prescriptions Prescriptions: New tamsulosin 0.4 mg capsule 0.4 mg PO HS Qty: 14 0RF oxycodone 5 mg tablet 5 mg PO Q6H PRN (Reason: pain) Qty: 10 0RF ondansetron 4 mg tablet,disintegrating 4 mg PO Q6H PRN (Reason: nausea and vomiting) Qty: 10 0RF No Action diclofenac sodium 1 % gel 4 g topical QID PRN (Reason: pain ) 30 Days Qty: 100 2RF Rx Instructions: apply to single, ankle, foot; for foot includes sole/toes/top of foot azithromycin [Zithromax Z-Dat] 250 mg tablet See Rx Instructions PO .COMPLEX Qty: 6 0RF Rx Instructions: For 250 mg dose pack: take 500 mg today (day 1), then 250 mg for 4 days (days 2-5) PO methylprednisolone 4 mg tablets,dose pack See Rx Instructions PO PER PKG DIR Qty: 21 0RF Rx Instructions: PO PER PKG DIR fluticasone propionate [Allergy Relief (fluticasone)] 50 mcg/actuation spray,suspension 1 spray intranasal DAILY Qty: 16 2RF Rx Instructions: administer into each nostril albuterol sulfate 90 mcg/actuation HFA aerosol inhaler 1 inh inhalation QID Qty: 6.7 2RF pantoprazole 40 mg tablet,delayed release (DR/EC) 40 mg PO TID 30 Days Qty: 90 10RF Voquezna 20 mg tablet PO Referrals Follow up/Referrals: Fish Mendoza MD [Staff Physician] - See instructions (R stone passed into bladder (approx 3mm), needs outpatient f/u for recurrent stones) Clive Neff MD [Primary Care Provider] - See instructions Activity Restrictions/Add. Instructions Additional Instructions/Restrictions: You were evaluated in the ER. You are appropriate for discharge at this time. Take the prescribed tamsulosin as directed nightly to help pass the kidney stone. Strain your urine using the provided strainer. Keep the stone for your follow-up with urology. Take Tylenol, ibuprofen if needed for pain, if this does not control your pain, then take the prescribed oxycodone. Take zofran if needed for nausea. Drink plenty of water to help pass the stone, I recommend aiming for 100oz of water to help flush the stone. Follow-up with urology as well as your primary care physician. Return to the ER with new, worsening, or otherwise concerning symptoms. Clinical Impressions Clinical Impression: Hydronephrosis of right kidney, Kidney stone Discharge ED Provider: Sarita Torrez General Adult HPI General Chief complaint: Urogenital-Male Stated complaint: kidney stones, right side abd pain Time Seen by Provider: 03/22/24 01:28 Mode of Arrival: Ambulatory Source of Information: Patient Limitations: No Limitations Description of Symptoms (Recalled from ER Triage Doc. by RN): 48 M presents from home with c/o probable kidney stone. Patient reports history of this in 2019. Patient states this earlier 03/21/24 and has gotten worse. Denies fever History of Present Illness HPI narrative: 48-year-old male presents to the ER for concerns of possible kidney stone. Patient reports history of similar symptoms in 2019. He states his symptoms onset around midnight and have gotten worse. He denies fever. He states he has not urinated since the symptoms onset a few hours ago. He states he takes a medication for his stomach but otherwise no daily medications, no known drug allergies. Patient complains of right flank pain radiating to the groin. Related Data Home Medications Medication Instructions Recorded Confirmed vonoprazan 20 mg tablet (Voquezna) mg PO 12/07/23 03/18/24 Previous Rx's Medication Instructions Recorded albuterol sulfate 90 mcg/actuation 1 inh inhalation QID #6.7 grams 09/18/23 aerosol inhaler fluticasone propionate 50 1 spray intranasal DAILY #16 grams 09/18/23 mcg/actuation nasal spray,suspension (Allergy Relief (fluticasone)) pantoprazole 40 mg tablet,delayed 40 mg PO TID 30 days #90 tabs 10/25/23 release diclofenac sodium 1 % topical gel 4 g topical QID PRN pain 30 days 11/09/23 #100 grams azithromycin 250 mg tablet See Rx Instructions PO .COMPLEX #6 03/18/24 (Zithromax Z-Dat) tabs methylprednisolone 4 mg tablets in See Rx Instructions PO PER PKG DIR 03/18/24 a dose pack #21 tabs ondansetron 4 mg disintegrating 4 mg PO Q6H PRN nausea and 03/22/24 tablet vomiting #10 tabs oxycodone 5 mg tablet 5 mg PO Q6H PRN pain #10 tabs 03/22/24 tamsulosin 0.4 mg capsule 0.4 mg PO HS #14 caps 03/22/24 Allergies Allergy/AdvReac Type Severity Reaction Status Date / Time No Known Drug Allergies Allergy Unknown Verified 03/18/24 14:36 [NKDA] [facility] Disclaimer: The information contained in this section may have been updated after the patient was seen, as this information can be updated by other users. Medical History Sprain and strain of left ankle Bloody stool Abdominal pain Splenomegaly Left upper quadrant abdominal pain Left lower quadrant abdominal pain Diverticulitis Loss of vision R eye Blood clot in eye History of stroke History of gastroesophageal reflux (GERD) Allergies Obesity Abnormal electrocardiography Dyspnea Chest pain Surgical History History of knee surgery r-x2 Family History Other Cancer Diabetes Family history of diabetes mellitus type II Family history of hypertension Heart attack Hypertension No significant family history Social History Smoking Status: Never smoker alcohol intake: never substance use type: denies use current occupational status: employed and other Travel in the last 8 weeks: Inside the [place] ROS Obtained: Yes All systems reviewed & no additional complaints except as documented Constitutional Constitutional: Denies chills, Denies fever(s), Denies headache(s) and Denies weakness Eyes Eyes: Denies change in vision ENT Ears, Nose, Mouth, and Throat: Denies dizziness, Denies headache(s), Denies nasal congestion and Denies sore throat Cardiovascular Cardiovascular: Denies chest pain, Denies dyspnea and Denies leg edema Respiratory Respiratory: Denies cough and Denies dyspnea Gastrointestinal Gastrointestingal: Denies constipation, diarrhea, nausea or vomiting Genitourinary Male Genitourinary: Denies difficulty urinating, Reports flank pain and Denies hematuria Musculoskeletal Musculoskeletal: Denies arthralgias, Denies myalgias, Denies numbness and Denies tingling Integumentary/Breasts Skin/Breast: Denies change in pigmentation Neurologic Neurologic: Denies dizziness, Denies headache(s), Denies numbness, Denies tingling and Denies weakness Physical Exam General General appearance: alert and in no apparent distress Head Head exam: atraumatic and normocephalic Eye Eye exam: Present PERRL and EOMI ENT ENT exam: Present mucous membranes moist Neck Neck exam: Present normal inspection and full ROM Chest Chest inspection: Present symmetric chest wall rise Respiratory Respiratory exam: Present normal lung sounds bilaterally; Absent respiratory distress, wheezes or stridor Cardiovascular Cardiovascular exam: Present regular rate and normal rhythm Abdominal Exam Abdominal exam: Present soft and tenderness (Mild right lateral); Absent distention, guarding or rebound Extremities Exam Extremities exam: Present full ROM Back Exam Back exam: Present CVA tenderness (R); Absent CVA tenderness (L) Neurological Exam Neurological exam: Present alert and oriented X3; Absent motor sensory deficit Psychiatric Psychiatric exam: Present normal affect and normal mood Skin Skin exam: Present warm and dry Medical Decision Making Medical Records Medical records reviewed: Yes I reviewed the patient's medical records. Garrett Inquiry Pt receiving controlled substance: Yes Garrett was queried for this patient: No Risks and benefits of using a controlled substance: were discussed with pt by me Vital Signs: 03/22/24 01:21 Temperature 98.5 F Temperature Source Oral Pulse Rate [Left] 50 L Respiratory Rate 20 Blood Pressure [Right Arm] 173/104 H Blood Pressure Mean [Right Arm] 127 Blood Pressure Source [Right Arm] Automatic Cuff Blood Pressure Position [Right Arm] Supine 02 Sat by Pulse Oximetry 99 Oxygen Delivery Method Room Air Lab Data Lab Results 03/22/24 01:25: Urine Color Yellow, Urine Appearance Clear, Urine pH 6.0, Ur Specific [place] >= 1.030, Urine Protein Negative, Urine Glucose (UA) Negative, Urine Ketones Negative, Urine Blood Negative, Urine Nitrate Negative, Urine Bilirubin Negative, Urine Urobilinogen 1.0, Ur Leukocyte Esterase Negative, Urine WBC Occasional, Ur Squamous Epith Cells Occasional, Urine Bacteria Trace 03/22/24 01:30: WBC 14.0 H, RBC 5.07, Hgb 16.1, Hct 46.6, MCV 91.8, MCH 31.7 H, MCHC 34.5, RDW 14.3, Plt Count 372, MPV 7.9, Neut % (Auto) 65.6, Lymph % (Auto) 27.3, [place] % (Auto) 5.5, Eos % (Auto) 0.5, Baso % (Auto) 1.0, Neut # (Auto) 9.2 H, Lymph # (Auto) 3.8, [place] # (Auto) 0.8, Eos # (Auto) 0.1, Baso # (Auto) 0.1, Sodium 139, Potassium 3.7, Chloride 103, Carbon Dioxide 28, Anion Gap 11.7, BUN 22 H, Creatinine 1.10, Estimated Creat Clear 140, Estimated GFR 72, Est GFR ( Amer) 87, Glucose 122 H, Calcium 9.2, Total Bilirubin 0.6, AST 42, ALT 44, Alkaline Phosphatase 51, Total Protein 7.3, Albumin 4.3, Globulin 3.0, Albumin/Globulin Ratio 1.4 03/22/24 01:30 03/22/24 01:30 Orders (Tests/Meds): ED MEDICATIONS Generic Name Dose Route Start Last Admin Trade Name Freq PRN Reason Stop Dose Admin Sodium Chloride 10 ml 03/22/24 01:33 Sodium Chloride 0.9% 10ml Flush Syringe IV 03/22/24 13:33 NEEDED PRN Maintain IV Site Discontinued Medications Generic Name Dose Route Start Last Admin Trade Name Freq PRN Reason Stop Dose Admin Lactated Ringer's 1,000 mls @ 999 mls/hr 03/22/24 01:33 03/22/24 01:34 Lactated Ringer's 1000 Ml Bag IV 03/22/24 02:33 999 mls/hr .Q1H1M ONE Administration Ketorolac Tromethamine 15 mg 03/22/24 01:33 03/22/24 01:35 Ketorolac 30mg/Ml Vial IV 03/22/24 01:34 15 mg ONCE ONE Administration Morphine Sulfate 4 mg 03/22/24 01:33 03/22/24 01:35 Morphine 4mg/Ml Syringe IV 03/22/24 01:34 4 mg ONCE ONE Administration Ondansetron HCl 4 mg 03/22/24 01:33 03/22/24 01:35 Ondansetron 4mg/2ml Vial IV 03/22/24 01:34 4 mg ONCE ONE Administration Oxycodone HCl 5 mg 03/22/24 02:39 03/22/24 02:40 Oxycodone 5mg Immediate Release Tablet PO 03/22/24 02:40 5 mg ONCE ONE Administration Tamsulosin HCl 0.4 mg 03/22/24 02:50 03/22/24 03:34 Tamsulosin 0.4mg Capsule PO 03/22/24 02:51 0.4 mg ONCE ONE Administration ORDERS Category Date Time Status CT abdomen pelvis wo con Stat Cat Scan 03/22/24 01:28 Taken CBC w/Auto Diff [Complete Blood Count Auto Diff] Stat Lab 03/22/24 01:30 Completed CMP [Comprehensive Metabolic Panel] Stat Lab 03/22/24 01:30 Completed Urinalysis and Microscopic Stat Lab 03/22/24 01:25 Ordered Medical Decision Narrative: In summary, this 48-year-old male presents to the emergency department today with acute onset right flank pain with pain radiating to the groin. Comorbidities of current condition include history of prior kidney stone which increases overall morbidity and risk of recurrence. On initial evaluation patient is hemodynamically stable, clearly in significant pain but nontoxic-appearing, tenderness palpation of the right lateral abdomen as well as right CVA tenderness. Patient was bradycardic but I believe this was due to vagal response secondary to pain. Differential diagnosis includes but is not limited to urinary tract infection, nephrolithiasis, ureterolithiasis, hydronephrosis, infected stone, kidney dysfunction. Based on these concerns, I ordered basic labs, urine studies, CT imaging. Patient received Toradol, morphine, Zofran, IV fluids for treatment. Labs personally reviewed demonstrate mild leukocytosis with WBC 14.0, hemoglobin normal at 16.1, platelets normal at 372, normal electrolytes, mild prerenal azotemia, patient is already receiving IV fluids, UA []. CT abdomen pelvis personally interpreted demonstrates findings of right hydronephrosis and approximately 3-4mm stone just into the bladder. See radiology read for final interpretation. On reassessment, patient has had dramatic improvement of symptoms. He states that the spasm has improved. He received oral oxycodone for continued management of discomfort. He has also received 1 dose of tamsulosin in the ER for dilation of the urinary tract to help with stone passage. I prescribed oxycodone, Zofran, tamsulosin, he was provided a strainer, given outpatient follow-up with urology, instructions to follow-up with his primary care physician, and strict return precautions for the ER. He indicated understanding and the patient was discharged in stable condition. Critical Care Critical Care Time Critical Care Time: No
[2024-03-22 02:02] LABS: Microscopic, Urine URINE MICROSCOPIC (MICROSCOPIC)
[2024-03-22 02:05] LABS: Appearance,Urine CLEAR (Clear); Bilirubin,Urine Negative (Negative); Blood, Urine Negative (Negative); Color,Urine YELLOW (Yellow); Glucose,Urine (UA) Negative (Negative); Ketones,Urine Negative (Negative); Leukocyte Esterase,Urine Negative (Negative); Nitrate,Urine Negative (Negative); Protein,Urine Negative (Negative); Specific Gravity, Urine >= 1.030 (1.005-1.030)
[2024-03-22 02:22] LABS: Bacteria,Urine Trace /lpf; Squamous Epithelial Cell,Urine Occasional #/hpf (0-5); WBC,Urine Occasional #/hpf (0-3)
[2024-03-22] MEDS: OXYCODONE 5MG IMMEDIATE RELEASE TABLET 5 MG PO (02:40)
--- NOTE | 2024-03-22 03:14 | PC.NURSE ---
Patient and spouse updated that we are waiting for official CT read.
[2024-03-22] MEDS: TAMSULOSIN 0.4MG CAPSULE 0.400000000000000022 MG PO (03:34)
[2024-03-22 03:45] VITALS: BP 130/64; PULSE 68; RESP 18; TEMP 37.1; O2SAT 96
== END 2024-03-22 03:48 | disposition home or self-care (01) ==
PROVIDERS: Emergency Provider Emergency Medicine; PCP Family Medicine
DX: N13.0 Hydronephrosis with ureteropelvic junction obstruction (principal); N13.4 Hydroureter; R10.31 Right lower quadrant pain
CPT/HCPCS: 74176; 80053; 81001; 85025; 96361; 96374; 96375; 99285; J1885; J2270; J2405; J7120

== ENCOUNTER 2024-04-22 11:05 | Outpatient (CLI) | payer OTHER, SELFPAY ==
[2024-05-22 11:43] LABS: Composition PERCENTAGE; Size 3X3
[2024-05-22 11:44] LABS: Ammonium acid urate 0; Ca oxalate dihydrate 20; Calcium bilirubinate 0; Calcium carbonate 0; Calcium phosphate 0; Cholesterol 0; Magnesium ammon phos 0; Photo SCANNED IMAGE; Sodium acid urate 0; Uric acid dihydrate 0
== END 2024-04-22 23:59 | disposition home or self-care (01) ==
LOC: LAB.DROPOF 04-23 11:05
PROVIDERS: PCP Urology; Visit Provider Urology
DX: N20.0 Calculus of kidney (principal)
CPT/HCPCS: 82370

== ENCOUNTER 2024-08-28 09:11 | Outpatient (CLI) | payer OTHER, SELFPAY | END 2024-08-28 23:59 | disposition home or self-care (01) | LOC: LAB.DROPOF 08-30 08:51 | PROVIDERS: PCP Nurse Practitioner Family; Visit Provider Nurse Practitioner Family | DX: J02.9 Acute pharyngitis, unspecified (principal) | CPT/HCPCS: 87070 ==

== ENCOUNTER 2024-10-01 11:00 | Outpatient (RCR) | payer OTHER, SELFPAY ==
--- NOTE | 2024-09-20 18:55 | [facility].PTOPEV ---
PT Outpatient Evaluation Rehab PT Outpatient Evaluation Start: 09/20/24 18:29 Freq: Status: Active Protocol: Document 09/20/24 18:29 BERTA (Rec: 09/20/24 18:54 BERTA [id number]) E-signed By Yosvany Downs, PT Outpatient Therapy Subjective History Subjective History Patient is a 48 year old male presenting to outpatient PT with reports of L foot pain consistent with plantar fasciitis. Symptoms of insidious onset starting approx 2 years ago. Other comorbidities include hx of R knee scope x 2. New diagnosis of cancer in past 12 No months? Chief Complaint Pain,Stiff,Gives out/Unstable Symptom Type Ache,Dull Symptoms Relieved By Rest/Positioning,Ice,OTC Meds, Prescription Meds Symptoms Aggravated By Standing,Physical Activity, Walking Prior Functional Limitations None Current Functional Limitations Housework,Driving,Sleeping, Standing,Recreation Activity, Walking,Stairs,Balance Ankle/Foot Eval Gait Observation General Gait Pattern Observation Decrease Weight Bear (L) Assistive Device Ambulation Assistive Device None Palpation Tenderness left PTF TTP positive CF TTP positive ROM Ankle/Foot Dorsiflexion w/Knee Extended -5 Active Range Motion (degrees) Ankle/Foot Plantar Flexion Active Range 54 of Motion (degrees) Ankle/Foot Eversion Active Range of 11 Motion (degrees) Ankle/Foot Inversion Active Range of WNL. Motion (degrees) Great Toe ROM Reason Not Measured Within Functional Limits MMT Ankle Dorsiflexion Strength Grade 5 Normal Ankle Plantarflexion Strength Grade 5 Normal Foot Eversion Strength Grade 4- Good- Foot Inversion Strength Grade 4- Good- Special Tests Ankle Anterior Drawer Test Negative Left Ankle Eversion Test Negative Left Talar Tilt Test Negative Left Foot Interdigital Neuroma Test Negative Left Lower Extremity Functional Index Activities Today, do you or would you have any difficulty at all with: a.Any of your usual work, housework or Extreme difficulty or unable school activities to perform activity b. Your usual hobbies, recreational or Extreme difficulty or unable sporting activities to perform activity c. Getting into or out of the bath Extreme difficulty or unable to perform activity d. Walking between rooms Extreme difficulty or unable to perform activity e. Putting on your shoes or socks Extreme difficulty or unable to perform activity f. Squatting Extreme difficulty or unable to perform activity g. Lifting an object, like a bag of Extreme difficulty or unable groceries from the floor to perform activity h. Performing light activities around Extreme difficulty or unable your home to perform activity i. Performing heavy activities around Extreme difficulty or unable your home to perform activity j. Getting into or out of a car Extreme difficulty or unable to perform activity k. Walking 2 blocks Extreme difficulty or unable to perform activity l. Walking a mile Extreme difficulty or unable to perform activity m. Going up or down 10 stairs (about 1 Extreme difficulty or unable flight of stairs) to perform activity n. Standing for 1 hour Extreme difficulty or unable to perform activity o. Sitting for 1 hour Extreme difficulty or unable to perform activity p. Running on even ground Extreme difficulty or unable to perform activity q. Running on uneven ground Extreme difficulty or unable to perform activity r. Making sharp turns while running fast Extreme difficulty or unable to perform activity s. Hopping Extreme difficulty or unable to perform activity t. Rolling over in bed Extreme difficulty or unable to perform activity LEFI Score Lower Extremity Functional Index Score 0 Outpatient Therapy Assessment Impairments Problems/Impairmments Palpation Tenderness,Impaired Range of Motion,Impaired Strength,Impaired Walking, Impaired Standing,Impaired Household Care,Impaired Stair Climbing,Impaired Incline Stepping,Impaired Recreational Activities,Impaired Work Activities,Impaired Balance, Subjective C/O Pain Prognosis Rehab Potential Good Clinical Impression Consistent with Diagnosis Yes Short Term Goals Number of Weeks 2 Decrease Subjective C/O Pain Yes Patient to be Ind w/ HEP Yes Shelter Goals Number of Weeks 4-6 Decreased Palpation Tenderness Yes: 1/4 Increase Range of Motion Yes: WNL Increase Strength Yes: 5/5 LLE Increase Ability to Walk Yes: 1 hr without difficulty Increase Ability to Stand Yes: Improve Ability For Household Care Yes Improve Tolerance to Work Activities Yes Improve LEFI Score Yes: >60 Decrease Subjective C/O Pain Yes: 2/10 at worst Outpatient Therapy Plan of Care Treatment Plan May Include Therapeutic Exercise Including Home Yes Exercise Program Manual Therapy Techniques Yes Neuromuscular Re-education Yes Therapeutic Activities to Return to Yes Previous Functional/Work Level Gait Training Yes ADL/Self Care Education Yes Mechanical Traction Yes Dry Needling Yes Thermal Modalities Yes Electrical Stimulation Yes Ultrasound/Phonophoresis Yes Iontophoresis Yes Orthotics/Bracing/Splinting Yes Vasopneumatic Compression Pump Yes Massage Yes Eval/Re-Eval Yes Frequency Times per week 2-3 Duration Number of Weeks 4-6 Addendums This patient is a candidate for social No or vocational rehab? Patient/Guardian verbally acknowledges Yes understanding of treatment program and consents to further treatment? Patient/Guardian verbally acknowledges Yes understanding of diagnosis, prognosis and goals for treatment? Eval Complexity PT Charges 24660 - Moderate Complexity Shoulder/Elbow Eval Shoulder Objective Measurements Elbow Objective Measurements PHYSICIAN CERTIFICATION: I certify the specified therapy services for Aldair Landers are required, authorized, and reviewed every 30 days.
== END 2024-10-01 23:59 | disposition home or self-care (01) ==
LOC: PT 11:00
PROVIDERS: PCP Nurse Practitioner Family; Visit Provider Nurse Practitioner
DX: M72.2 Plantar fascial fibromatosis (principal)
CPT/HCPCS: 97110; 97163

== ENCOUNTER 2025-03-05 12:14 | Outpatient (CLI) | payer OTHER, SELFPAY ==
[2025-03-07 14:15] LABS: Pancreatic Elastase, Fecal >800 (>200)
== END 2025-03-05 23:59 | disposition home or self-care (01) ==
LOC: LAB 12:14
PROVIDERS: PCP Family Medicine; Visit Provider Internal Medicine Gastroenterology
DX: R14.0 Abdominal distension (gaseous) (principal)
CPT/HCPCS: 82656

== ENCOUNTER 2025-04-14 07:27 | Outpatient (CLI) | payer OTHER, SELFPAY ==
--- OUTSIDE RECORDS SUMMARY | 2025-04-14 07:29 | XMS_ITS | Data Portability ---
Author Organization [facility] [place] & LATRICE Kowalski ADMIN Address [address] [place] [address] Care Team Providers Care Clarifier Name Role Phone JASBIR GARCIA Referring Provider [phone] Assessment Encounter Date Assessment Date Assessment LastModified by Organization Details LastModified Time 02/27/2024 02/27/2024 Mr. Landers was referred by Dr. Harry for management of chronic LUQ pain. He reports that he had a diverticulitis flare up in 2014 and has had persistent pain since then. Dr. Harry has ran several tests (several CT abdomen, EGD, colonoscopies, bloodwork) to find the origin of his pain with no significant findings. He denies DM, history of infection, or anti-coagulant use. Based on the patient's history and physical exam, I feel that the patient's pain is likely associated with thoracic neuritis as I feel that his spine could be attributing to his pain due to his specific pain pattern. To address the patient's pain: Prior to considering injections to manage his pain, I will order a thoracic MRI to rule out thoracic neuritis that could be contributing to the patient's persistent, worsening symptoms to the LUQ. Once I have reviewed the thoracic MRI, I will decide how to proceed with treatment. In the meantime, I will start the patient on Amitriptyline 25mg nightly in efforts to alleviate pain until I can better control it with other treatments. - Order thoracic MRI today - Medication for 1 month: Amitriptyline 25mg nightly #30 - Follow up 1 week post MRI for review/discuss treatment options ------ I have discussed in great detail our potential treatment options which would include a rehabilitative approach to care. This program would include medication management, Physical Therapy, consideration for interventional procedures as appropriate, and lifestyle modification (diet, weight loss, exercise, smoking/tobacco cessation, holistic approach including meditation and yoga). The patient understands and agrees prior to proceeding with this plan. _ __ __ __ __ __ __ __ __ __ __ __ __ __ __ __ __ __ __ __ __ __ __ __ __ __ __ __ _ RECORDS REVIEW: As per clinic policy, we will have the patient sign a release to obtain previous imaging and clinical notes. - PROCEDURE: I counseled the patient extensively and informed of the risks of the procedure, including the risk of paralysis, nerve damage, respiratory arrest, arrhythmias, stroke, weakness, and infection, which although very low, could result in or disability. The patient acknowledged to me that they understand and accept these risks. RN EDUCATION Extensive coordination of care provided by RN to educate patient on upcoming procedure and to coordinate obtaining extensive incoming medical records. _ __ __ __ __ __ __ __ __ __ __ __ __ __ __ __ __ __ __ __ __ __ __ __ __ __ __ __ _ PSYCH: Pain affecting Neuro-psych behavior was discussed. Discussed about pain psychological counseling as a part of the multimodal approach to pain treatment. _ __ __ __ __ __ __ __ __ __ __ __ __ __ __ __ __ __ __ __ __ __ __ __ __ __ __ __ _ REHABILITATION: Discussed with the patient the importance of diet, daily physical activity and PT. Discussed with the patient the need to be scheduled for physical therapy since physical therapy will prolong the benefits of the procedure and interventions. _ __ __ __ __ __ __ __ __ __ __ __ __ __ __ __ __ __ __ __ __ __ __ __ __ __ __ __ _ FARIDA: [id number] I have reviewed patient's FARIDA report prior to prescribing Schedule II, III, and IV medications that require review by law. Not available 02/28/2024 08:23:29 03/25/2024 03/25/2024 Mr. Landers was referred by Dr. Harry for management of chronic LUQ pain with onset in 2014 following a flare-up of diverticulitis. The patient has underwent an extensive work up to investigate the etiology/pathology , including abdomen CT, EGD, colonoscopy, and labs). The patient denies DM, anti-coagulant use, and history of MRSA. The patient presents to the clinic today for a medication refill. Because Amitriptyline is effective and well-tolerable, allowing him to remain functional, I will refill for 2 months. The patient continues to complain of localized LUQ pain of unknown origin. Interestingly, the pain worsens with constipation and isn't reproducible, which increases support a GI source. I think the pain is likely visceral in nature and perhaps stemming from chronic diverticulitis. At the last visit, I ordered a thoracic MRI to assess the degree of degenerative changes (particularly for signs of neural compression), which was unremarkable. I don't think the clinical presentation is consistent with thoracic neuritis. I think the patient may benefit from a celiac plexus block, but he isn't interested in pursuing interventional treatment at this time. The patient would like to determine the reason for the pain first, which he intends on discussing further with his PCP and GI specialist. I will follow up in 2 months for a medication refill. ------ I have discussed in great detail our potential treatment options which would include a rehabilitative approach to care. This program would include medication management, Physical Therapy, consideration for interventional procedures as appropriate, and lifestyle modification (diet, weight loss, exercise, smoking/tobacco cessation, holistic approach including meditation and yoga). The patient understands and agrees prior to proceeding with this plan. _ __ __ __ __ __ __ __ __ __ __ __ __ __ __ __ __ __ __ __ __ __ __ __ __ __ __ __ _ RECORDS REVIEW: As per clinic policy, we will have the patient sign a release to obtain previous imaging and clinical notes. - PROCEDURE: I counseled the patient extensively and informed of the risks of the procedure, including the risk of paralysis, nerve damage, respiratory arrest, arrhythmias, stroke, weakness, and infection, which although very low, could result in or disability. The patient acknowledged to me that they understand and accept these risks. RN EDUCATION Extensive coordination of care provided by RN to educate patient on upcoming procedure and to coordinate obtaining extensive incoming medical records. _ __ __ __ __ __ __ __ __ __ __ __ __ __ __ __ __ __ __ __ __ __ __ __ __ __ __ __ _ PSYCH: Pain affecting Neuro-psych behavior was discussed. Discussed about pain psychological counseling as a part of the multimodal approach to pain treatment. _ __ __ __ __ __ __ __ __ __ __ __ __ __ __ __ __ __ __ __ __ __ __ __ __ __ __ __ _ REHABILITATION: Discussed with the patient the importance of diet, daily physical activity and PT. Discussed with the patient the need to be scheduled for physical therapy since physical therapy will prolong the benefits of the procedure and interventions. _ __ __ __ __ __ __ __ __ __ __ __ __ __ __ __ __ __ __ __ __ __ __ __ __ __ __ __ _ FARIDA: [id number] I have reviewed patient's FARIDA report prior to prescribing Schedule II, III, and IV medications that require review by law. [email or web address] Not available 03/25/2024 09:15:00 06/13/2024 06/13/2024 Mr. Landers was referred by Dr. Harry for management of chronic LUQ pain with onset in 2014 following a flare-up of diverticulitis. The patient has underwent an extensive work up to investigate the etiology/pathology , including abdomen CT, EGD, colonoscopy, and labs). The patient denies DM, anti-coagulant use, and history of MRSA. [email or web address] Not available 06/17/2024 13:11:20 07/08/2024 07/08/2024 48-year-old male with chronic intermittent left sided abdominal pain. Pertinent history includes previously diagnosed erosive esophagitis and duodenitis, diverticulitis in 2021, and chronic finding of mild splenomegaly (Resolved on most recent CT imaging). Treatment with acid suppression therapy and laxatives has not changed his symptoms much. He is participating in pain management but has not had much relief following initiation of amitriptyline or after celiac plexus block. 1) Left upper quadrant pain: I suspect he pain have rib joint dysfunction as he is point tender on exam today. -Start cyclobenzaprine as needed at bedtime. -I have recommended he use a foam roller and implement gental stretches. -He plans to discuss with pain management next week. Consider referral to PT. 2) History of splenomegaly: Mild, chronic finding. Was not redemonstrated on CT earlier this year. Will monitor. 3) History of diverticulitis: High fiber diet recommended. f/u [email or web address] Not available 07/08/2024 10:45:02 Plan of Treatment Reminders Order Date Submit Date Provider Last Modified By Organization Details Last Modified Time Details Appointments None recorded. Lab None recorded. Referral None recorded. Procedures transvers us abdominis plane block unilatera l; by injection (PROC) - Left TAP block. [id number]. [id number]. 2023 tamanna Cutler, [address] , [address], [place], [address], 13:44:54 Surgeries None recorded. Imaging MRI, thoracic spine, w/wo contrast - to assess spinal column to rule out thoracic neuritis contribut ing to worsening symptoms to the LUQ 2023 [email or web address] Not available 05:00:54 Medication Orders cyclobenz aprine 10 mg tablet 2023 [facility], [address], [address], 4 10:43:36 amitripty line 25 mg tablet 2023 024 [facility], [address], [address], 4 09:15:18 amitripty line 25 mg tablet [address] [facility], [address], [address], 4 14:35:00 Patient TargetsNo targets recorded. Patient Instructions Encounter Date Encounter Id Patient Instructions Last Modified By Organization Details Last Modified Time 06/13/2024 [id number] I have discussed in great detail our potential treatment options which would include a rehabilitative approach to care. This program would include medication management, Physical Therapy, consideration for interventional procedures as appropriate, and lifestyle modification (diet, weight loss, exercise, smoking/tobacco cessation, holistic approach including meditation and yoga). The patient understands and agrees prior to proceeding with this plan. _ __ __ __ __ __ __ __ __ __ __ __ __ __ __ __ __ __ __ __ __ __ __ __ __ __ __ __ _ RECORDS REVIEW: As per clinic policy, we will have the patient sign a release to obtain previous imaging and clinical notes. _ __ __ __ __ __ __ __ __ __ __ __ __ __ __ __ __ __ __ __ __ __ __ __ __ __ __ __ _ PSYCH: Pain affecting Neuro-psych behavior was discussed. Discussed about pain psychological counseling as a part of the multimodal approach to pain treatment. _ __ __ __ __ __ __ __ __ __ __ __ __ __ __ __ __ __ __ __ __ __ __ __ __ __ __ __ _ REHABILITATION: Discussed with the patient the importance of diet, daily physical activity and PT. Discussed with the patient the need to be scheduled for physical therapy since physical therapy will prolong the benefits of the procedure and interventions. _ __ __ __ __ __ __ __ __ __ __ __ __ __ __ __ __ __ __ __ __ __ __ __ __ __ __ __ _ FARIDA: [id number] I have reviewed patient's FARIDA report prior to prescribing Schedule II, III, and IV medications that require review by law. I counseled the patient extensively and informed of the risks of the procedure, including the risk of paralysis, nerve damage, respiratory arrest, arrhythmias, stroke, weakness, and infection, which although very low, could result in or disability. The patient acknowledged to me that they understand and accept these risks. RN EDUCATION Extensive coordination of care provided by RN to educate patient on upcoming procedure and to coordinate obtaining extensive incoming medical records. Not available 06/17/2024 13:10:36 07/08/2024 [id number] Name: ALDAIR LANDERS Exam Date: 01/15/2024 : 1975 Age 48 years Exam: CT ABD PEL W/ (IV ^ ORAL) CT ABDOMEN AND PELVIS WITH CONTRAST TECHNIQUE: Oral and IV contrast enhanced exam HISTORY: Chronic Left upper quadrant pain for 4 years COMPARISON: 07/24/2015. FINDINGS: Abdomen: Lung bases are clear. The liver is unremarkable. The gallbladder is unremarkable. The spleen is normal. The adrenal glands are unremarkable. The pancreas is unremarkable. There is no bowel obstruction. No free air or free fluid is seen. There is a moderate to large amount of stool and gas noted. There is diverticulosis with no evidence of diverticulitis. The kidneys demonstrate a small nonobstructing right renal calculus measuring 4 mm. There is a 2 mm nonobstructing left renal calculus and there is no hydronephrosis. The descending colon is decompressed with minimal wall thickening, nonspecific. Pelvis: No fluid collections or inflammatory changes are present. Appendix is normal. The urinary bladder is unremarkable. There is a tiny fat-containing umbilical hernia noted. There is no acute osseous abnormality. IMPRESSION: No acute intra-abdominal process. Moderate to large amount of colonic stool. Nonspecific decompressed descending colon with minimal wall thickening. [email or web address] Not available 07/08/2024 10:36:25 Reason for Referral None Reported. Problems Name Problem SNOMED Code Status Onset Date Resolution Date Notes Provider Name and Address Organization Details Recorded Time Myofascial pain 657548551 Active 2023 Gloria Ferris null, [place] - [facility] - [place] & [place] 4 13:39:38 Pain in scrotum Active 2022 Aniyah Zepeda null, [place] - [facility] - [place] & [place] 3 13:56:09 Abdominal pain 10337499 Active 2022 Aniyah Zepeda null, [place] - [facility] [place] & [place] 3 13:56:16 History of calculus of kidney 888999626 Active 2022 Aniyah Zepeda null, [place] - [facility] [place] & [place] 3 13:56:28 Erosive esophagiti s 89636419 Active 2023 Jasbir Garcia PA-C [address], [place], [address] , [place] - [facility] - [facility] & [place] 4 10:41:25 Left sided abdominal pain 558882090 Active 2023 Jasbir Garcia PA-C [address], [place], [address] , [place] - [facility] - [facility] & [facility] 4 21:24:47 Splenomega ly 95848038 Active 2023 Jasbir Garcia PA-C [address], [place], [address] , [place] - [facility] - [place] & [place] 4 21:24:52 Duodenitis 31921057 Active 2023 Jasbir Garcia PA-C [address], [place], [address] , [place] - [facility] - [place] & [place] 4 21:49:22 Radicular pain 18749427 Active 2023 Jasbir Garcia PA-C [address], [place], [address] , [place] - [facility] - [facility] & [place] 4 16:09:26 Pain in thoracic spine 209832871 Active 2023 Gloria Ferris null, [place] - [facility] - [place] & [place] 4 09:56:05 Thoracic neuritis 64840245 Active 2023 Gloria Ferris null, [place] - [facility] - [facility] & [place] 4 08:20:39 Left upper quadrant pain 325227161 Active 2023 Gloria Ferris null, [place] - [facility] & [place] 4 08:20:47 History of diverticul itis 9122318975056 00 Active 2023 Gloria Ferris null, [place] - [facility] - [facility] & [place] 4 08:21:18 Somatic dysfunctio n of rib 126850165 Active 2023 Jasbir Garcia PA-C [address] , [place], [address] , [place] - [facility] - [place] & [place] 4 10:42:45 Problem Notes None recorded. Procedures Surgical History Date Name Laterality Status Provider Name and Address Organization Details Recorded Time 4 Injection Only completed Gloria Ferris [place] - [facility] - [place] & [place] 07/19/2024 13:38:33 Imaging Results None recorded. Procedure Notes None recorded. Medical Equipment None Reported. Allergies No known drug allergies Medications Name Sig Start Date Stop Date Status Note LastModified by Organization Details LastModified Time cyclobenzap rine 10 mg tablet TAKE 1 TABLET BY MOUTH NEEDED AT BEDTIME active Not Available Not Available No t Available amoxicillin 500 mg capsule TAKE 1 CAPSULE BY MOUTH THREE TIMES DAILY 05/20 completed Not Available Not Available Not Available azithromyci n 250 mg tablet TAKE 2 TABLETS BY MOUTH ON DAY 1, AND THEN TAKE 1 TABLET BY MOUTH ONCE A DAY ON DAY 2 THROUGH DAY 5 05/20 completed Not Available Not Available Not Available ibuprofen 800 mg tablet TAKE 1 TABLET BY MOUTH EVERY 8 HOURS NEEDED FOR PAIN 02/26 completed Not Available Not Available Not Available hydrocodone 5 mg-acetamin ophen 325 mg tablet TAKE 1 TABLET BY MOUTH EVERY 8 HOURS NEEDED FOR PAIN 02/26 completed Not Available Not Available Not Available sucralfate 1 gram tablet TAKE 1 TABLET BY MOUTH 4 TIMES DAILY BEFORE MEALS AND AT BEDTIME 02/26 completed Not Available Not Available Not Available prednisone 20 mg tablet TAKE 2 TABLETS BY MOUTH ONCE DAILY FOR 5 DAYS THEN 1 ONCE DAILY FOR 5 DAYS 02/26 completed Not Available Not Available Not Available metronidazo le 500 mg tablet TAKE 1 TABLET BY MOUTH EVERY 8 HOURS FOR 14 DAYS 02/26 completed Not Available Not Available Not Available acetaminoph en 300 mg-codeine 30 mg tablet TAKE 1 TABLET BY MOUTH THREE TIMES DAILY NEEDED FOR PAIN 02/26 completed Not Available Not Available Not Available ciprofloxac in 500 mg tablet TAKE 1 TABLET BY MOUTH TWICE DAILY FOR 14 DAYS 02/26 completed Not Available Not Available Not Available sildenafil 100 mg tablet TAKE 1 TABLET BY MOUTH DAILY NEEDED FOR SEXUAL ACTIVITY, TAKE 30 MINUTES BEFORE ACTIVITY 02/26 completed Not Available Not Available Not Available oxycodone-a cetaminophe n 5 mg-325 mg tablet TAKE 1 TABLET BY MOUTH THREE TIMES DAILY 02/26 completed Not Available Not Available Not Available amitriptyli ne 25 mg tablet TAKE 1 TABLET BY MOUTH AT BEDTIME NIGHTLY active Not Available Not Available No t Available tamsulosin 0.4 mg capsule TAKE 1 CAPSULE BY MOUTH AT BEDTIME NIGHTLY 05/20 completed Not Available Not Available Not Available benzonatate 100 mg capsule TAKE 1 CAPSULE BY MOUTH TWICE DAILY NEEDED FOR COUGH 02/26 completed Not Available Not Available Not Available pantoprazol e 40 mg tablet,vargas yed release TAKE 1 TABLET BY MOUTH TWICE DAILY active Not Available Not Available No t Available polyethylen e glycol 3350 17 gram/dose oral powder 02/26 completed Not Available Not Available Not Available methylpredn isolone 4 mg tablets in a dose pack TAKE BY MOUTH DIRECTED ON INSIDE OF PACKAGE 05/20 completed Not Available Not Available Not Available albuterol sulfate HFA 90 mcg/actuati on aerosol inhaler INHALE 1 PUFF BY MOUTH 4 TIMES DAILY 02/26 completed Not Available Not Available Not Available ondansetron 4 mg disintegrat ing tablet DISSOLVE 1 TABLET IN MOUTH EVERY 6 HOURS NEEDED FOR NAUSEA AND VOMITING 06/13 completed Not Available Not Available Not Available fluticasone propionate 50 mcg/actuati on nasal spray,suspe nsion USE 1 SPRAY(S) IN EACH NOSTRIL ONCE DAILY 02/26 completed Not Available Not Available Not Available naproxen 500 mg tablet TAKE 1 TABLET BY MOUTH TWICE DAILY active Not Available Not Available No t Available oxycodone 5 mg tablet TAKE 1 TABLET BY MOUTH EVERY 6 HOURS NEEDED FOR PAIN 05/20 completed Not Available Not Available Not Available Vegetable Laxative 8.6 mg tablet 02/26 completed Not Available Not Available Not Available Sutab 1.479-0.188 -0.225 gram tablet TAKE 12 TABLETS EVERY DAY BY ORAL ROUTE DIRECTED FOR 2 DAYS 02/26 completed Not Available Not Available Not Available Voquezna 20 mg tablet TAKE 1 TABLET BY MOUTH ONCE DAILY 02/26 completed Not Available Not Available Not Available Vitals Date Recorded Body height Body mass index (BMI) Body weight Body temperature Oxygen saturation Oxygen saturation in Arterial blood by Pulse oximetry Heart rate Systolic And Diastolic Provider Name and Address Organization Details Last Updated DateTime 4 177.8 cm 38.2 kg/m2 296392. 29 g 98.1 [degF] 98 % 98 % 66 /min 146/90 mm[Hg] Aniyah Boss [facility] & [place] 4 09:14:11 Date Recorded Body height Body mass index (BMI) Body weight Body temperature Oxygen saturation Oxygen saturation in Arterial blood by Pulse oximetry Heart rate Respiratory rate Systolic And Diastolic Provider Name and Address Organization Details Last Updated DateTime 4 177.8 cm 37.8 kg/m2 893335. 23 g 99.3 [degF] 95 % 95 % 81 /min 16 /min 130/88 mm[Hg] Maria Guadaluperianna Starr [facility] & [place] 4 08:33:12 Date Recorded Body height Body mass index (BMI) Body weight Body temperature Oxygen saturation Oxygen saturation in Arterial blood by Pulse oximetry Heart rate Systolic And Diastolic Provider Name and Address Organization Details Last Updated DateTime 4 177.8 cm 38.1 kg/m2 483521. 85 g 97.1 [degF] 96 % 96 % 81 /min 103/61 mm[Hg] [facility] [place] 4 11:22:09 Date Recorded Body height Body mass index (BMI) Body weight Body temperature Oxygen saturation Oxygen saturation in Arterial blood by Pulse oximetry Heart rate Heart rate Systolic And Diastolic Provider Name and Address Organization Details Last Updated DateTime 4 177.8 cm 38.1 kg/m2 647286. 85 g 97.5 [degF] 98 % 98 % 69 /min 71 /min 160/89 mm[Hg] Norberto Tubbs [facility] & [place] 4 10:09:21 Date Recorded Body height Body temperature Oxygen saturation Oxygen saturation in Arterial blood by Pulse oximetry Heart rate Systolic And Diastolic Provider Name and Address Organization Details Last Updated DateTime 4 177.8 cm 97.1 [degF] 97 % 97 % 69 /min 157/96 mm[Hg] [facility] - [facility] & [place] 09:28:55 Social History Question Answer Notes LastModified by Organizat ion Details LastModified Time Tobacco Smoking Status Never Smoker Aniyah burnette, [place] [facility] - [place] & [place] 2022 13:58:30 What Is Your Level Of Caffeine Consumption? None [email or web address] Information not available 07/08/2024 Sex: Unknown Functional Status Question Answer Note LastModified by Organizat ion Details LastModified Time Do you use any illicit or recreational drugs? No Information not available 2022 Do you or have you ever used any other forms of tobacco or nicotine? No [email or web address] Information not available 07/08/2024 What is your level of alcohol consumption? None Information not available 2022 Mental Status None recorded. Family History Relationship Description Onset Age of this Age Resolved Age Notes LastModified by Organization Details LastModified Time Father Hypertensive disorder [email or web address] Not available 2023 09:19:50 Father Hyperlipidem ia [email or web address] Not available 2023 09:20:05 Father Asthma [email or web address] Not available 09:20:20 Father Hernia repair [email or web address] Not available 2023 09:20:34 Mother Hypertensive disorder [email or web address] Not available 2023 09:20:43 Mother Hyperlipidem ia [email or web address] Not available 2023 09:20:51 Medical History Condition Response Head Trauma/Injury Y Acid Reflux (GERD) Y Immunizations Vaccine Type Date Status Note Provider Nam e and Address Organization Details Recorded Time COVID-19, mRNA, LNP-S, PF, 30 mcg/0.3 mL dose 02/07/2021 completed [place] Jaya burnette, [place] [facility] & [place] 06/13/2024 11:22:25 COVID-19, mRNA, LNP-S, PF, 30 mcg/0.3 mL dose 02/28/2021 completed [place] Sueoakhurst vasile, [place] - [facility] & [place] 06/13/2024 11:22:25 COVID-19, mRNA, LNP-S, PF, 30 mcg/0.3 mL dose, priscilla-sucrose 01/15/2022 completed [place] Jaya burnette, [place] - [facility] - [place] & [place] 06/13/2024 11:22:25 Tdap 02/28/2022 completed [place] Jaya burnette, [place] - [facility] - [place] & [place] 06/13/2024 11:22:25 Past Encounters Encounter ID Performer Location Encounter Start Date Encounter Closed Date Diagnosis/Indication Diagnosis SNOMED-CT Code Diagnosis ICD10 Code Diagnosis Note [id number] Jasbir Garcia PA-C [facility] [address] [address] 11/30/2023 09:08:10 11/30/2023 11:00:34 Erosive esophagitis 93741871 K22.10 Left sided abdominal pain 730997704 R10.9 Splenomegaly 38356376 R1 6.1 History of diverticulitis 0723206695 12521 Z87.19 Duodenitis 48033434 K29. 80 [id number] Jasbir Garcia PA-C [facility] [address] [address] 12/28/2023 13:29:36 12/28/2023 13:53:38 Erosive esophagitis 22392611 K22.10 Left sided abdominal pain 404496448 R10.9 Splenomegaly 43696765 R1 6.1 History of diverticulitis 9985944597 77924 Z87.19 Duodenitis 29734867 K29. 80 [id number] Jasbir Garcia [facility]C [facility] [facility] [address] [address] 01/22/2024 14:50:55 01/22/2024 15:51:35 Left sided abdominal pain [id number] R10.9 Erosive esophagitis 4071 9004 K22.10 Splenomegaly 84534455 R1 6.1 History of diverticulitis [id number] 95334 Z87.19 Duodenitis 26980958 K29. 80 [id number] Kevin Cutler MD [facility] [address] [place] [address] 02/27/2024 08:58:37 02/27/2024 10:05:34 Pain in thoracic spine [id number] M54.6 Thoracic neuritis 658457 09 M54.14 Left upper quadrant pain 593325493 R10.12 Radicular pain 39512322 M54.10 History of diverticulitis [id number] 55973 Z87.19 [id number] KEYSHAWN SALGADO PA-C [facility] [address] [facility] [address] [place] [address] 03/25/2024 08:23:34 03/25/2024 09:03:56 Pain in thoracic spine [id number] M54.6 Thoracic neuritis 663461 09 M54.14 Left upper quadrant pain 555979745 R10.12 Radicular pain 61433123 M54.10 History of diverticulitis [id number] 10273 Z87.19 [id number] KEYSHAWN SALGADO [facility]C [facility] [address] [facility] [address] [place] [address] 06/13/2024 11:06:15 06/13/2024 11:39:30 Left upper quadrant pain 985191056 R10.12 Radicular pain 18725838 M54.10 History of diverticulitis [id number] 03217 Z87.19 Myofascial pain 46211722 9 M79.18 - The patient is nearly 3 weeks S/P celiac plexus block, which was unsuccessf ul.- The patient continues to complain of localized LUQ pain described as tightness/ spasm, which is seemingly myofascial in nature and largely stemming from trigger points of the left anterolate ral abdominal wall muscles.- Interestin gly, the pain worsens with constipati on and isn't reproducib le, which increases support of a GI source (chronic diverticul itis).- I have reviewed the thoracic MRI, which was largely unremarkab le (clinical presentati on is inconsiste nt with thoracic neuritis). - Continue Amitriptyl ine- I will proceed with scheduling a left TAP block.- If pain persists/w orsens, he will discuss further with his PCP and GI specialist . [id number] Jasbir Garcia PA-C [facility] [address] [facility] [address] [place] [address] 07/08/2024 09:45:57 07/08/2024 10:36:10 Left sided abdominal pain 680953473 R10.9 Erosive esophagitis 4071 9004 K22.10 Splenomegaly 83148382 R1 6.1 History of diverticulitis [id number] 38717 Z87.19 Duodenitis 87502390 K29. [address] sfunction of rib 002032481 M99.08 [id number] Kevin Cutler MD [facility] [address] [facility] [address] [place] [address] 07/19/2024 08:36:15 07/19/2024 10:50:04 Myofascial pain [id number] M79.18 Health Concerns Section Related Observation LastModified by Organization Detai ls LastModified Time None Recorded Concern Status LastModified by Organization Details LastModified Time None Recorded Advance Directives Directive None Recorded Payers Insurance Date Sequence Insurance Name Policy Number Policy Bernal Covered Member ID Bernal Member ID Guarantor Name 07/23/[address] [facility] [id number] Krysta Landers [id number] Notes Date Note Type Note Provider Name and Address Organization Details Recorded Time 4 text/html Mr. Landers was referred by Dr. Harry for management of chronic LUQ pain. He reports that he had a diverticulitis flare up in 2014 and has had persistent pain since then. Dr. Harry has ran several tests (several CT abdomen, EGD, colonoscopies, bloodwork) to find the origin of his pain with no significant findings. He denies DM, history of infection, or anti-coagulant use. The patient complains of LUQ pain that radiates into the back. He states that the pain feels similar to when he had his diverticulitis flare up, but there is no evidence supporting a recurrent flare up. He goes on to say that the pain is worse with laying down regardless of the angle that he is laying in. He goes on to say that any pressure on the left side causes increased pain. The patient goes to his chiropractor weekly for adjustments which is helpful short-term regarding his pain. Initial complaint: chronic LUQ painOnset: 2014Context: worsening over timeCharacter: sharp, aching, throbbing, radiatingLocation: LUQ, left-sided ribs, backDuration: constant with fluctuationsInitial Intensity: 3/10Worse: laying down, pressure on left sideBetter: restAssociated symptoms: Denies saddle anaesthesia, denies acute bowel/bladder changes, denies acute power loss.ADLs: The patient's pain interferes with daily chores, exercise, sleep, relationships, and walking.Current Pain Medications: nonePrior Pain Medications: noneNSAIDS/OTC: mildly helpfulNon-interventional Tx: chiropracticsPhysical Therapy: noneInterventional Tx: noneSurgery: noneImaging/Studies: CT abdomen Kevin Cutler MD [address] [facility], [place], [address], [facility] [place] 02/28/2024 08:59:17 4 text/html Mr. Landers was referred by Dr. Harry for management of chronic LUQ pain with onset in 2014 following a flare-up of diverticulitis. The patient has underwent an extensive work up to investigate the etiology/pathology, including abdomen CT, EGD, colonoscopy, and labs). The patient denies DM, anti-coagulant use, and history of MRSA. The patient presents to the clinic today for a medication refill. The patient states that Amitriptyline is effective and well-tolerable, allowing him to remain functional. The patient states that the medication decreases pain at night, which allows him to sleep better. The patient continues to complain of localized LUQ pain. The patient notes that pain worsens with constipation. Today the pain level is a 3/10. Initial complaint: chronic LUQ painOnset: 2014Context: worsening over timeCharacter: sharp, aching, throbbing, radiatingLocation: LUQ, left-sided ribs, backDuration: constant with fluctuationsInitial Intensity: 3/10Worse: laying down, pressure on left sideBetter: restAssociated symptoms: Denies saddle anaesthesia, denies acute bowel/bladder changes, denies acute power loss.ADLs: The patient's pain interferes with daily chores, exercise, sleep, relationships, and walking.Current Pain Medications: nonePrior Pain Medications: noneNSAIDS/OTC: mildly helpfulNon-interventional Tx: chiropracticsPhysical Therapy: noneInterventional Tx: noneSurgery: noneImaging/Studies: CT abdomen KEYSHAWN SALGADO PA-C [address], [place], [address], [facility] [place] 03/25/2024 09:15:26 4 text/html Mr. Landers was referred by Dr. Harry for management of chronic LUQ pain with onset in 2014 following a flare-up of diverticulitis. The patient has underwent an extensive work up to investigate the etiology/pathology, including abdomen CT, EGD, colonoscopy, and labs). The patient denies DM, anti-coagulant use, and history of MRSA. The patient presents to the clinic today nearly 3 weeks S/P celiac plexus block. The patient denies experiencing significant improvement in pain or function. The patient continues to complain of localized LUQ pain described as tightness/spasm. The patient notes that pain worsens with constipation. Today the pain level is a 3/10, but fluctuates higher (6 or more). Initial complaint: chronic LUQ painOnset: 2014Context: worsening over timeCharacter: sharp, aching, throbbing, radiatingLocation: LUQ, left-sided ribs, backDuration: constant with fluctuationsInitial Intensity: 3/10Worse: laying down, pressure on left sideBetter: restAssociated symptoms: Denies saddle anaesthesia, denies acute bowel/bladder changes, denies acute power loss.ADLs: The patient's pain interferes with daily chores, exercise, sleep, relationships, and walking.Current Pain Medications: nonePrior Pain Medications: noneNSAIDS/OTC: mildly helpfulNon-interventional Tx: chiropracticsPhysical Therapy: noneInterventional Tx: noneSurgery: noneImaging/Studies: CT abdomen KEYSHAWN SALGADO PA-C [address], [place], [address], [facility] [place] 06/17/2024 13:12:06 4 text/html PREVIOUS (11/30/23): Mr. Landers is a pleasant 48-year-old male who was referred by Dr. Clive Neff for evaluation of left sided abdominal pain. He describes left sided pain that favors the upper abdomen and radiates to his left shoulder at times. He has a history of uncomplicated diverticulitis 2 years ago. He has undergone recent cross sectional imaging and LUQ ultrsound that was suggestive of mild splenomegaly without other abnormal finding. He underwent colonoscopy in June by Dr. Arevalo with 4 polyps resected (sessile serrated adenoma) with recommendation to repeat in 3 years. He had an EGD performed in August with findings of erosive esophagitis and peptic duodenitis. He was started on Pantoprazole 40 mg p.o. once daily, which he felt provided mild relief of his symptoms. He has continued to experience episodic discomfort, but this has been less severe since his upper endoscopy. He states he had a negative cardiac workup. He states his spleen enlargement has not been worked up further but has been present for a number of years. He denies nausea, vomiting, dysphagia, odynophagia, night sweats, enlarged lymph nodes, constipation, diarrhea, or bloody stools. PREVIOUS (12/28/23): Mr. Landers returns to the office today for follow-up regarding left sided abdominal pain and splenomegaly. He was trialed on Voquezna samples for 3 weeks due to history of ulcerative esophagitis, however this did not improve his symptoms. He has resumed pantoprazole. He continues to have pain that radiates to his left shoulder. He denies any new or progressive symptoms. PREVIOUS (01/22/24): Mr. Landers presents via telephonic encounter today for follow-up regarding LUQ pain and splenomegaly. He underwent CT abd/pelvis last week that showed moderate constipation and no evidence of enlarged spleen. I spoke with him on Monday and recommended he perform a bowel purge with 5 doses of miralax x1. He states that he had several BMs following this. He did not have improvement in abdominal pain however. He does recall that his pain was improved following colonoscopy prep last year. CURRENT (07/08/24): Mr. Landers returns to the office today for follow-up regarding chronic left upper quadrant pain. He underwent colonoscopy in January with findings of sigmoid diverticulosis only. He was referred to pain management. He had a celiac plexus block in May, but felt his pain has been worse since that time. He as started on treatment with amitriptyline 2 months ago, but has not found this to change his symptoms much either. His pain is worse at night while lying down. He denies heartburn, nausea, or change in bowel habits. Jasbir Garcia PA-C [address], [place], [address], [facility] [place] [facility] [place] 07/08/2024 10:45:16
--- NOTE | 2025-04-14 07:45 | MR_ITS ---
FINAL REPORT CLINICAL HISTORY: Pain in left foot patient has pain on bottom of foot COMPARISON: None FINDINGS: Multiplanar MR imaging of the left foot was performed with and without contrast. Marrow signal: Unremarkable Joints: Unremarkable Tendons: Tendinosis without tear of the peroneus brevis tendon. Remaining tendons are unremarkable. Ligaments:Major ligaments intact Plantar Fascia: Plantar fasciitis with partial tear involving the medial cord of the plantar fascia. No cystic or soft tissue mass. No enhancing mass. 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 Plantar fasciitis with partial tear. Reviewed, Interpreted and Dictated by Antonette Gregory MD Transcribed by Jane Macias Authenticated and [facility]
[2025-04-14] MEDS: IOPAMIDOL-370 (76%);100ML BOTTLE IV (08:34)
[2025-04-14] MEDS: GADOTERIDOL INJ 20ML SYRINGE 20 ML IV (08:34)
[2025-04-14] MEDS: SODIUM CHLORIDE 0.9% 10ML SYR (RAD ONLY) 10 ML IV (08:34)
== END 2025-04-14 23:59 | disposition home or self-care (01) ==
LOC: RAD 07:27
PROVIDERS: Visit Provider Nurse Practitioner
DX: M72.2 Plantar fascial fibromatosis (principal); M77.52 Other enthesopathy of left foot and ankle
CPT/HCPCS: 73720; A9576; Q9967

== ENCOUNTER 2025-05-12 13:08 | Outpatient (CLI) | payer OTHER, SELFPAY ==
--- NOTE | 2025-05-12 13:11 | XR_ITS ---
FINAL REPORT CLINICAL HISTORY: Left Ankle Injury, heard a pop COMPARISON: 10/16/2023 FINDINGS: LEFT FOOT Three views show no evidence of acute displaced fracture or dislocation of the visualized bony architecture. There are minimal degenerative changes of the midfoot. Calcaneal spurring is noted. IMPRESSION: Mild degenerative changes without acute abnormality. Reviewed, Interpreted and Dictated by Antonette Gregory MD Transcribed by Arin French Authenticated and . [facility]
--- NOTE | 2025-05-12 13:11 | XR_ITS ---
FINAL REPORT CLINICAL HISTORY: Left Ankle Injury, heard a pop COMPARISON: 10/16/2023 FINDINGS: LEFT ANKLE Three views show no evidence of acute displaced fracture or dislocation of the visualized bony architecture. There are mild degenerative changes. Mild calcaneal spurring is noted. IMPRESSION: Degenerative changes without acute abnormality. Reviewed, Interpreted and Dictated by Antonette Gregory MD Transcribed by Arin French Authenticated and [facility]
--- OUTSIDE RECORDS SUMMARY | 2025-05-12 13:13 | XMS_ITS | Clinical Summary ---
Author Organization [facility] Address [address] [place] [address] Care Team Providers Care Dj Instructor Name Role Phone Douglas Singh MD Primary Care Provider + Allergies No known active allergies Medications pantoprazole (PROTONIX) 40 MG EC tablet Take 1 tablet by mouth Daily. Active naproxen (NAPROSYN) 500 MG tablet Take 1 tablet by mouth 2 (Two) Times a Day. Active amitriptyline (ELAVIL) 25 MG tablet Take 1 tablet by mouth Every Night. 04/22/2024 Active busPIRone (BUSPAR) 10 MG tabletIndicatio ns:Abdominal pain, chronic, left upper quadrant Take 1 tablet by mouth twice daily 60 tablet 2 11/07/2024 Active DULoxetine (CYMBALTA) 30 MG capsuleIndicati ons:Chronic pain syndrome TAKE 1 CAPSULE BY MOUTH ONCE DAILY AT NIGHT AT BEDTIME 30 capsule 5 12/10/2024 Active Active Problems Problem Noted Date Diagnosed Date Chronic pain syndrome 09/20/2024 Assessment & Plan (09/20/2024 8:30 AM EST): Since patient may have had some initial response to medication he will continue buspirone once daily. Amitriptyline will be discontinued. Duloxetine 30 mg will be started at night. Pantoprazole will be reduced to once daily. Changes in amitriptyline and pantoprazole are aimed at reducing hunger. Telephone follow-up will occur in about 4 weeks. Doxylamine can be used to aid with sleep if needed. Immunizations Immunization Administration Dates Next Due Tdap 02/28/2022 Social History Tobacco Use Types Packs/Day Years Used Date Smoking Tobacco: Former Cigarettes 0.5 8 1 999 - 2007 Smokeless Tobacco: Never Tobacco Cessation:Counseling Given: No PHQ-2 Answer Date Recorded Patient Health Questionnaire-2 Score 0 07/30/2024 Sex and Gender Information Value Date Recorded Sex Assigned at Not on file Legal Sex Male 8:56 AM EDT Gender Identity Not on file Sexual Orientation Not on file Last Filed Vital Signs Vital Sign Reading Time Taken Comments Blood Pressure 145/90 09/20/2024 8:01 AM EST Pulse 70 09/20/2024 8:01 AM EST Temperature 36.3 C (97.3 F) 09/20/2024 8:01 AM EST Respiratory Rate 20 09/20/2024 8:01 AM EST Oxygen Saturation 98% 09/20/2024 8:01 AM EST Inhaled Oxygen Concentration - - Weight 125 kg (276 lb 9.6 oz) 09/20/2024 8:01 AM EST Height 182.9 cm (6') 09/20/2024 8:01 AM EST Body Mass Index 37.51 09/20/2024 8:01 AM EST Plan of Treatment Health Maintenance Due Date Last Done Comments COLOGUARD 2022 COLON CANCER SCREENING 5 YEA R SIGMOIDOSCOPY 2022 COLONOSCOPY 2022 COLORECTAL CANCER SCREENING 2022 CT COLONOGRAPHY 2022 FECAL OCCULT BLOOD TEST 2022 FIT Testing (1 year) 2022 COVID-19 Vaccine ( - 2023-2 5 season) 2024 01/15/2022, 02/28/2021, 02/07/2021 ANNUAL PHYSICAL 07/30/2024 HEPATITIS C SCREENING 07/30/2024 INFLUENZA VACCINE 07/02/2025 TDAP/TD VACCINES (2 - Td or Tdap) 02/29/2032 02/28/2022 Pneumococcal Vaccine 0-49 Aged Out No longer eligible based on patient's age to complete this topic Insurance Care Teams Dj Instructor Relationship Specialty Start Date End Date Doulgas Singh MD [address] [place] [id number] PCP - General Family Medicine 07/30/24
== END 2025-05-12 23:59 | disposition home or self-care (01) ==
LOC: RAD 13:09
PROVIDERS: PCP Nurse Practitioner Family; Visit Provider Nurse Practitioner
DX: S99.912A Unspecified injury of left ankle, initial encounter (principal)
CPT/HCPCS: 73610; 73630

== ENCOUNTER 2025-06-18 10:25 | Day surgery (SDC) | payer OTHER, SELFPAY ==
--- NOTE | 2025-06-15 11:54 | EXP.HP ---
History of Present Illness *Admission Date: 06/18/25 *History of present illness: Mr. Landers is a 49-year-old gentleman who is here for diagnostic EGD and colonoscopy. He has had left upper quadrant abdominal pain that radiates into the flank and sometimes into the back. He has moderate gassiness and bloating. He has seen GI ([facility]?Benji Arevalo [facility] [place]?Brett Harry) previously. He never got any better. He did see me initially on 03/04/2025 and his last visit was 04/16/2025. I did feel that his symptoms were most consistent with splenic flexure syndrome. I did recommend that he increase the buspirone to 20 mg twice daily and begin psyllium Konsyl and an [id number] digestive enzyme. He could not tolerate the higher dose of buspirone which made him dizzy. He does state that his bowel function has improved with the Konsyl and he feels as if he has emptied out. He reports no excessive wiping but he does have hemorrhoids that continue to bleed sometimes. His pain sometimes can be 10 out of 10. He reports no nausea or vomiting. He continues to have moderate gassiness and bloating. He continues to splint. This does interfere with his sleep. [facility] Disclaimer: The information contained in this section may have been updated after the patient was seen, as this information can be updated by other users. Medical History Left ankle injury Influenza B Sprain and strain of left ankle Bloody stool Abdominal pain Splenomegaly Left lower quadrant abdominal pain Diverticulitis Loss of vision R eye Blood clot in eye History of stroke History of gastroesophageal reflux (GERD) Allergies Obesity Abnormal electrocardiography Dyspnea Chest pain Surgical History History of knee surgery r-x2 Family History Other Cancer Diabetes Family history of diabetes mellitus type II Family history of hypertension Heart attack Hypertension No significant family history Social History Smoking Status: Never smoker alcohol intake: never substance use type: denies use current occupational status: employed Travel in the last 8 weeks?: Inside the [place] Have you lived/traveled outside US in past 30 days?: No Contact w/someone who lives/traveled outside US past 30 days?: No Exposure to someone with infectious disease in past 14 days?: No Do you have a fever (greater than 100.4 F or 38 C)?: No Have you tested positive for COVID-19?: No Exposed to someone with COVID-19 in past 14 days?: No Do you have a sore throat?: No Do you have a cough?: No Do you have any weakness?: No Do you have any diarrhea?: No Are you experiencing any unusual bleeding?: No Do you have any muscle aches/pain?: No Do you have any abdominal pain?: No Are you experiencing loss of taste or smell?: No Other Medical History Have you received the Flu Vaccine for this season: No Have you received the Pneumonia Vaccine: No Review of Systems Review of Systems Review of systems (narrative): Negative *Cardiovascular Comments: Negative *Gastrointestinal Comments: Negative *Genitourinary Comments: Negative *Musculoskeletal Comments: Negative *Neurologic Comments: Negative Meds Home Medications and Allergies Home Medications ?Medication ?Instructions ?Recorded ?Confirmed ?Type pantoprazole 40 mg tablet,delayed 40 mg PO DAILY #90 tabs 02/18/25 06/18/25 Rx release buspirone 10 mg tablet 10 mg PO DAILY 04/16/25 06/18/25 History psyllium husk (with sugar) 3 1 tbsp PO DAILY 04/16/25 06/18/25 History gram/12 gram oral powder (Konsyl (sugar)) meloxicam 15 mg tablet 15 mg PO DAILY #30 tabs 06/10/25 06/18/25 Rx lorazepam 1 mg tablet 1 mg PO DAILY 06/18/25 06/18/25 History New Prescriptions to Start Prescriptions: Allergies Allergy/AdvReac Type Severity Reaction Status Date / Time No Known Allergies Allergy Verified 06/18/25 10:56 Exam *Routine HEENT Exam Head: Present normocephalic Eye: Present EOMI and PERRL ENT: Present mucous membranes moist *Routine Neck Exam Neck: Present supple *Routine Respiratory Exam Respiratory: Present CTA bilaterally *Routine Cardiovascular Exam Cardiovascular: Present RRR *Routine Abdominal Exam Abdominal: Present soft and normoactive bowel sounds; Absent tenderness *Routine Rectal Exam Rectal:: deferred *Routine Genitalia Exam Genitalia:: deferred *Routine Extremities Exam Extremities: Absent cyanosis, clubbing or edema *Routine Skin Exam Skin: Present warm; Absent rash *Routine Neurological Exam Neurological: Present alert and oriented X3 Assessment and Plan *Assessment and plan (1) Bloating: Status: Acute Category: Medical Code(s): R14.0 - Abdominal distension (gaseous) (2) Left upper quadrant abdominal pain: Status: Acute Category: Medical Code(s): R10.12 - Left upper quadrant pain (3) Gassiness: Status: Acute Category: Medical Code(s): R14.0 - Abdominal distension (gaseous) (4) Splenic flexure syndrome: Status: Acute Category: Medical Code(s): K63.9 - Disease of intestine, unspecified Plan A/P: 1. Left upper quadrant abdominal pain, bloating and gassiness is the preprocedural diagnosis. The patient will be anesthetized/sedated using MAC sedation. The patient has been seen and examined. Cardiac and lung assessment prior to the examination is stable. Proceed with planned diagnostic EGD and colonoscopy.
[2025-06-17 08:10] VITALS: BMI 35.9
--- NOTE | 2025-06-18 07:17 | HMH.PROCNOTE ---
[facility] Procedure Note Date: 06/18/25 Time: 12:30 Procedure Note:: Upper Endoscopy Procedure Report: Esophagogastroduodenoscopy with cold biopsies Endoscopost: Julian Mathias II, MD Referring Physician: Douglas Neff MD Date of Procedure: June 18, 2025 Equipment: Olympus [id number]-1100 standard upper endoscope Sedation: MAC sedation Indications: Mr. Landers is a 49-year-old gentleman who is here for diagnostic EGD and colonoscopy. He has had left upper quadrant abdominal pain that radiates into the flank and sometimes into the back. He has moderate gassiness and bloating. He has seen GI ([facility]?Benji Arevalo and [place]?Brett Harry) previously. He never got any better. He did see me initially on 03/04/2025 and his last visit was 04/16/2025. I did feel that his symptoms were most consistent with splenic flexure syndrome. I did recommend that he increase the buspirone to 20 mg twice daily and begin psyllium Konsyl and an nlwv-bpi-elmswmf digestive enzyme. He could not tolerate the higher dose of buspirone which made him dizzy. He does state that his bowel function has improved with the Konsyl and he feels as if he has emptied out. He reports no excessive wiping but he does have hemorrhoids that continue to bleed sometimes. His pain sometimes can be 10 out of 10. He reports no nausea or vomiting. He continues to have moderate gassiness and bloating. He continues to splint. This does interfere with his sleep. The patient did have a CAT scan of the abdomen and pelvis in March 2024 and the abdominal organs appeared normal with normal liver, pancreas, gallbladder and biliary ducts. There was normal vasculature. Procedure: Prior to the procedure, a history and physical exam was performed, and patient's medications and allergies were reviewed. The risks, benefits and alternatives of the sedation and procedure were discussed with the patient. All questions were answered and informed consent was obtained. The patient was brought to the procedure room. Patient identification and proposed procedure were verified by the physician and the nurse. The patient was placed in a left lateral decubitus position and the scope was passed under direct vision. Throughout the procedure, the patient's blood pressure, pulse, and oxygen saturations were monitored continuously. The upper GI endoscopy was accomplished without difficulty. The patient tolerated the procedure well. Findings: The scope was passed directly into the upper esophagus and advanced to the third portion of the duodenum. The post bulbar duodenum, ampulla and duodenal bulb were normal with normal mucosa and conniventes. A cold biopsy was taken from the second portion of the duodenum for the disaccharidase assay. The scope was withdrawn through a normal duodenal bulb and pylorus into the stomach. There was bile reflux with some linear reactive gastropathy of the antrum. The body and fundus of the stomach were normal. Upon retroflexion there was a small 2 to 3 cm hiatal hernia. Cold biopsies were taken from the antrum. The scope was then withdrawn into the esophagus. There was a serrated Z-line and biopsies were taken from the distal esophagus to rule out intestinal metaplasia. There is only a single tongue of salmon-colored mucosa. There was no evidence of reflux esophagitis and the remainder of the esophageal mucosa was normal. Impression: 1. Nonerosive GERD with mild esophageal dysmotility and small 2 to 3 cm hiatal hernia 2. Bile reflux with mild linear reactive gastropathy Plan: I do feel that this represents functional abdominal pain/splenic flexure syndrome. We will discuss additional treatment options. Given the intensity of his left upper quadrant abdominal pain, I would consider repeating a scan to rule out other potential etiologies (i.e. splenic infarction, congenital malrotation, pancreatitis in the tail of the gland, etc.).
--- NOTE | 2025-06-18 07:17 | HMH.PROCNOTE ---
[facility] Procedure Note Date: 06/18/25 Time: 12:44 Procedure Note:: Colonoscopy Procedure Report: Colonoscopy Endoscopist: Julian Mathias II, MD Referring physician: Douglas Neff MD Date of Procedure: June 18, 2025 Equipment: Olympus [id number] adult colonoscope Sedation: MAC sedation Indication: Mr. Landers is a 49-year-old gentleman who is here for diagnostic EGD and colonoscopy. He has had left upper quadrant abdominal pain that radiates into the flank and sometimes into the back. He has moderate gassiness and bloating. He has seen GI ([facility] [place]?Brett Harry) previously. He never got any better. He did see me initially on 03/04/2025 and his last visit was 04/16/2025. I did feel that his symptoms were most consistent with splenic flexure syndrome. I did recommend that he increase the buspirone to 20 mg twice daily and begin psyllium Konsyl and an utnx-ljq-ijlezzm digestive enzyme. He could not tolerate the higher dose of buspirone which made him dizzy. He does state that his bowel function has improved with the Konsyl and he feels as if he has emptied out. He reports no excessive wiping but he does have hemorrhoids that continue to bleed sometimes. His pain sometimes can be 10 out of 10. He reports no nausea or vomiting. He continues to have moderate gassiness and bloating. He continues to splint. This does interfere with his sleep. The patient did have a CAT scan of the abdomen and pelvis in March 2024 and the abdominal organs appeared normal with normal liver, pancreas, gallbladder and biliary ducts. There was normal vasculature. Procedure: Prior to the procedure, a history and physical exam was performed, and patient's medications and allergies were reviewed. The risks, benefits and alternatives of the sedation and procedure were discussed with the patient. All questions were answered and informed consent was obtained. The patient was brought to the procedure room. Patient identification and proposed procedure were verified by the physician and the nurse. The patient was placed in a left lateral decubitus position and the scope was passed under direct vision. Throughout the procedure, the patient's blood pressure, pulse, and oxygen saturations were monitored continuously. The colonoscopy was accomplished without difficulty. The patient tolerated the procedure well. Findings: On digital rectal examination there was normal rectal tone. There were no external hemorrhoids. The colonoscope was introduced through the anal canal to the rectum and advanced to the cecum. The ileocecal valve and appendiceal orifice were identified. The scope was advanced a short distance into the ileum which appeared grossly normal. The scope was then withdrawn into the colon. The cecum, ascending and transverse colon and mucosa were grossly normal. There were extensive late scattered diverticuli throughout the descending and sigmoid colon (LEFT colon). There was some angulation at the splenic flexure suggestive of splenic flexure syndrome. The rectum itself was normal. Upon retroflexion within the rectum there were grade 1-2 internal hemorrhoids. The preparation was good throughout with [place] Preparation Score of 8 out of 9. The cecal time was 11 minutes. Impression: 1. Extensive left-sided diverticulosis 2. Grade 1-2 internal hemorrhoids Plan: Most of the patient's clinical symptoms are suggestive of splenic flexure syndrome (functional abdominal pain) but he has not entirely improved with treatment for this with psyllium Konsyl and buspirone. Given the intensity of his abdominal pain, I do feel that we should explore further with repeat imaging since it has been 15 months since last exam. I would like to exclude an etiology related to the spleen such as splenic infarction or splenic rupture.
[2025-06-18 10:59] VITALS: BP 138/98; PULSE 78; RESP 18; TEMP 36.4; O2SAT 96
[2025-06-18] MEDS: LACTATED RINGERS 1000ML 1,000 ML 50 ML IV (11:13)
--- NOTE | 2025-06-18 11:30 | EXP.ANES.CKL ---
[facility] Disclaimer: The information contained in this section may have been updated after the patient was seen, as this information can be updated by other users. Medical History Left ankle injury Influenza B Sprain and strain of left ankle Bloody stool Abdominal pain Splenomegaly Left lower quadrant abdominal pain Diverticulitis Loss of vision R eye Blood clot in eye History of stroke History of gastroesophageal reflux (GERD) Allergies Obesity Abnormal electrocardiography Dyspnea Chest pain Surgical History History of knee surgery r-x2 Family History Other Cancer Diabetes Family history of diabetes mellitus type II Family history of hypertension Heart attack Hypertension No significant family history Social History Smoking Status: Never smoker alcohol intake: never substance use type: denies use current occupational status: employed Travel in the last 8 weeks?: Inside the [place] Have you lived/traveled outside US in past 30 days?: No Contact w/someone who lives/traveled outside US past 30 days?: No Exposure to someone with infectious disease in past 14 days?: No Do you have a fever (greater than 100.4 F or 38 C)?: No Have you tested positive for COVID-19?: No Exposed to someone with COVID-19 in past 14 days?: No Do you have a sore throat?: No Do you have a cough?: No Do you have any weakness?: No Do you have any diarrhea?: No Are you experiencing any unusual bleeding?: No Do you have any muscle aches/pain?: No Do you have any abdominal pain?: No Are you experiencing loss of taste or smell?: No [facility] Anesthesia Checklist Patient Identification Patient Identification: Verbal (Name & ) Structural Data Admitted From: Home Planned Operative Procedure/s: egd,colonoscopy Consent for Planned Operative Procedure(s) Verified: Yes NPO Status Verified Time NPO: 00:00 Additional verifications Anesthesia Reactions: No Hx Blood Transfusions: No Blood Transfusion Reaction: No Airway Assessment Mallampati Score:: Class II C-Spine Mobility Assessed: Yes TMJ Mobility Assessed: Yes Dentition: Good Dentition Neurological Assessment Level of Consciousness: Awake, Alert and Appropriate Anesthesia Plan Anesthesia Risk discussed: Yes Anesthesia Plan: Verified ASA Class: II Anesthesia Type: MAC
[2025-06-18 12:46] VITALS: BP 152/76; PULSE 68; RESP 18; TEMP 36.1; O2SAT 93
[2025-06-18 12:56] VITALS: BP 121/71; PULSE 78; O2SAT 94
[2025-06-18 13:06] VITALS: BP 120/78; PULSE 90; O2SAT 93
[2025-06-18 13:16] VITALS: BP 142/69; PULSE 64; O2SAT 96
[2025-06-23 09:10] LABS: Interpretation Notes (.); Lactase 35.71 (>/= 14.0); Maltase 205.73 (>/= 110.0); Palatinase 19.05 (>/= 8.5); Reference Notes (.); Sucrase 64.28 (>/= 25.0)
== END 2025-06-18 13:16 | disposition home or self-care (01) ==
PROVIDERS: PCP Family Medicine; Visit Provider Internal Medicine Gastroenterology
PROC: 0DJ08ZZ Inspection of Upper Intestinal Tract, Via Natural or Artificial Opening Endoscopic (ICD-10-PCS; CPT 45378; principal; 2025-06-18 12:00)
DX: K57.30 Diverticulosis of large intestine without perforation or abscess without bleeding (principal); K64.0 First degree hemorrhoids; K64.1 Second degree hemorrhoids; K44.9 Diaphragmatic hernia without obstruction or gangrene; K21.9 Gastro-esophageal reflux disease without esophagitis; K31.89 Other diseases of stomach and duodenum; K22.4 Dyskinesia of esophagus
CPT/HCPCS: 43239; 45378; 82657; J2003; J2704; J7120

== ENCOUNTER 2025-06-23 15:26 | Outpatient (CLI) | payer OTHER, SELFPAY ==
[2025-06-23 17:24] LABS: Microscopic, Urine URINE MICROSCOPIC (MICROSCOPIC)
[2025-06-23 17:55] LABS: Albumin Level 4.3 g/dl (3.5-5.0); Chloride 105 mmol/L (98-107); Sodium 140 mmol/L (136-145)
[2025-06-23 17:56] LABS: Hemoglobin A1C 5.3 % (4.0-6.0); Potassium 3.9 mmoL/L (3.5-5.1)
[2025-06-23 17:58] LABS: Alanine Aminotransferase 38 U/L (12-78); Albumin/Globulin Ratio 1.7 (1.1-1.8); Anion Gap 12.9 mEq/L (5-15); Aspartate Amino Transferase 38 U/L (17-59); Blood Urea Nitrogen 14 mg/dl (9-20); Carbon Dioxide 26 mmol/L (22.0-30.0); Creatinine,Serum 1.20 mg/dl (0.66-1.25); Estimated Glomerular Filt Rate 65 ml/min (>60); GFR (African American) 79 ML/MIN (>60); Globulin 2.5 g/dL (1.3-3.2); Total Protein,Serum 6.8 g/dl (6.3-8.2)
[2025-06-23 17:59] LABS: Alkaline Phosphatase 57 U/L (38-126); Bilirubin,Total 0.5 mg/dl (0.2-1.3); Calcium 9.2 mg/dl (8.4-10.2); Cholesterol 165 mg/dl (140-200); Glucose 94 mg/dl (74-100); HDL Cholesterol 39 mg/dl (40-60); Triglycerides 267 mg/dl (30-150)
[2025-06-23 18:12] LABS: Hematocrit 41.8 % (42.0-52.0); Hemoglobin 14.7 g/dL (14.1-18.0); Immature Granulocytes % 0.2 %; Mean Corpuscular HGB Conc 35.2 g/dL (31.8-35.4); Mean Corpuscular Hemoglobin 29.2 pg (27.0-31.2); Mean Corpuscular Volume 83.1 fl (80-94); Nucleated Red Blood Cells % 0 %; Platelet Count 279 K/mm3 (142-424); Red Blood Count 5.03 M/mm3 (4.60-6.20); Red Cell Distribution Width-SD 38.9 fL; White Blood Count 9.4 K/mm3 (4.8-10.8)
[2025-06-23 18:18] LABS: 25-OH Vitamin D, Total 24.8 ng/mL (30-100); Free T4 (Free Thyroxine) 0.71 ng/dl (0.78-2.19)
[2025-06-23 18:31] LABS: Thyroid Stimulating Hormone 1.93 uIU/mL (0.465-4.68)
[2025-06-23 18:55] LABS: Hepatitis C Ab Qual. W/ RFX NEGATIVE (Negative)
[2025-06-23 19:51] LABS: Vitamin B12 730 pg/mL (239-931)
[2025-06-23 20:58] LABS: Bilirubin,Urine Negative (Negative); Color,Urine YELLOW (Yellow); Glucose,Urine (UA) Negative (Negative); Ketones,Urine TRACE (Negative); Leukocyte Esterase,Urine Negative (Negative); PH,Urine 6.0 (5.0-8.5); Protein,Urine Negative (Negative); Specific Gravity, Urine 1.025 (1.005-1.030); Urobilinogen,Urine 1.0 EU/dl (0.2)
[2025-06-23 21:21] LABS: Bacteria,Urine Trace /lpf; Mucus,Urine 2+ /lpf; Squamous Epithelial Cell,Urine Occasional #/hpf (0-5)
--- OUTSIDE RECORDS SUMMARY | 2025-06-24 13:51 | XMS_ITS | Clinical Summary ---
Author Organization [facility] Address [address] [place] [address] Care Team Providers Care Oracle Database Developer Name Role Phone Douglas Singh MD Primary [...] TEST 2022 FIT Testing (1 year) 2022 ANNUAL PHYSICAL 07/30/2024 HEPATITIS C SCREENING 07/30/2024 INFLUENZA VACCINE 05/02/2025 TDAP/TD VACCINES (2 - Td or Tdap) 02/29/2032 022 Pneumococcal Vaccine 0-49 Aged Out No longer eligible based on patient's age to complete this topic Insurance [employer] Care Teams Oracle Database Developer Relationship Specialty Start Date End Date Douglas Singh MD [address] [place] [id number] PCP - General Family Medicine 07/30/24
== END 2025-06-23 23:59 | disposition home or self-care (01) ==
LOC: LAB.DROPOF 06-24 13:49
PROVIDERS: PCP Nurse Practitioner Family; Visit Provider Nurse Practitioner Family
DX: R41.3 Other amnesia (principal); Z11.4 Encounter for screening for human immunodeficiency virus [HIV]; Z11.59 Encounter for screening for other viral diseases; I10 Essential (primary) hypertension; Z68.36 Body mass index [BMI] 36.0-36.9, adult; Z13.21 Encounter for screening for nutritional disorder; Z13.220 Encounter for screening for lipoid disorders; R53.83 Other fatigue; E11.9 Type 2 diabetes mellitus without complications; G47.33 Obstructive sleep apnea (adult) (pediatric)
CPT/HCPCS: 80053; 80061; 81001; 82306; 82607; 83036; 84156; 84439; 84443; 85025; 86803; 87086; 87389

== ENCOUNTER 2025-07-14 07:36 | Outpatient (CLI) | payer OTHER, SELFPAY ==
--- OUTSIDE RECORDS SUMMARY | 2025-07-14 07:39 | XMS_ITS | Data Portability ---
Author Organization [facility] [place] & [place] Kowalski ADMIN Address [address] [place] [address] Care Team Providers Care Welder/Fabricator Name Role Phone JASBIR GARCIA Referring Provider Assessment Encounter Date Assessment Date Assessment LastModified [...] __ __ __ __ __ _ FARIDA: [id number] I have reviewed patient's FARIDA report prior to prescribing Schedule II, III, and IV medications that require review by law. [email or web address] Not available 02/28/2024 08:23:29 03/25/2024 03/25/2024 Mr. [...] __ __ __ __ __ _ FARIDA: [id number] I have reviewed patient's FARIDA report prior to prescribing Schedule II, III, and IV medications that require review by law. [email or web address] Not available 03/25/2024 09:15:00 06/13/2024 06/13/2024 Mr. Landers was referred by Dr. Harry for management of chronic LUQ pain with onset in 2014 following a flare-up of diverticulitis. The patient has underwent an extensive work up to investigate the etiology/pathology , including abdomen CT, EGD, colonoscopy, and labs). The patient denies DM, anti-coagulant use, and history of MRSA. Not available 06/17/2024 13:11:20 07/08/2024 07/08/2024 48-year-old [...] diverticulitis: High fiber diet recommended. f/u prn [email or web address] Not available 07/08/2024 10:45:02 Plan of Treatment Reminders Order Date Submit Date Provider Last Modified By Organization Details Last Modified Time Details Appointments None recorded. Lab None recorded. Referral None recorded. Procedures transvers us abdominis plane block unilatera l; by injection (PROC) - Left TAP block. 53735. 09990. 2023 tamanna Cutler, [address], [place], [address], 13:44:54 Surgeries None recorded. Imaging MRI, thoracic spine, w/wo contrast - to assess spinal column to rule out thoracic neuritis contribut ing to worsening symptoms to the LUQ 2023 [email or web address] Not available 05:00:54 Medication Orders cyclobenz aprine 10 mg tablet 2023 [facility], [address], [address], 4 10:43:36 amitripty line 25 mg tablet 2023 024 [facility], [address], [address], 4 09:15:18 amitripty line 25 mg tablet 2023 024 [facility], [address], [address], 4 14:35:00 Patient TargetsNo targets recorded. Patient Instructions Encounter Date Encounter Id Patient Instructions Last Modified By Organization Details Last Modified Time 06/13/2024 [id number] I have discussed in great detail our [...] __ __ __ __ __ _ FARIDA: [id number] I have reviewed patient's FARIDA report prior [...] to coordinate obtaining extensive incoming medical records. [email or web address] Not available 06/17/2024 13:10:36 07/08/2024 [id number] Name: ALDAIR LANDERS Exam Date: 01/15/2024 : [...] decompressed descending colon with minimal wall thickening. Not available 07/08/2024 10:36:25 Reason for Referral None Reported. Problems Name Problem SNOMED Code Status Onset Date Resolution Date Notes Provider Name and Address Organization Details Recorded Time Pain in scrotum Active 2022 Aniyah burnette, [place] - [facility] [place] & [place] 3 13:56:09 Abdominal pain 15557008 Active 2022 Aniyah Zepeda null, [place] [facility] [place] & [place] 3 13:56:16 History of calculus of kidney 599162750 Active 2022 Aniyah burnette, [place] [facility] [place] 3 13:56:28 Erosive esophagiti s 50185671 Active 2023 Jasbir Garcia PA-C [address] [facility], [place], [address] , [place] - [facility] [place] & [place] 4 10:41:25 Left sided abdominal pain 695315365 Active 2023 Jasbir Garcia PA-C [address], [place], [address] , [place] - [facility] [place] & [place] 4 21:24:47 Splenomega ly 72287360 Active 2023 Jasbir Garcia PA-C [address], [place], [address] , [place] - [facility] [place] & [place] 4 21:24:52 Duodenitis 88386066 Active 2023 Jasbir Garcia PA-C [address], [place], [address] , [place] - [facility] [place] & [place] 4 21:49:22 Radicular pain 77687639 Active 2023 Jasbir Garcia PA-C [address], [place], [address] , [place] [facility] [place] & [place] 4 16:09:26 Pain in thoracic spine 713843459 Active 2023 Gloriapatsy Ferris null, [place] [facility] [place] 4 09:56:05 Thoracic neuritis 72476961 Active 2023 Gloriapatsy Ferris null, [place] [facility] [place] 4 08:20:39 Left upper quadrant pain 261263787 Active 2023 Gloria Ferris null, [place] [facility] & [place] 4 08:20:47 History of diverticul itis 2146305946186 00 Active 2023 Gloria Barrington null, [place] [facility] [place] 4 08:21:18 Somatic dysfunctio n of rib 359457360 Active 2023 Jasbir Garcia PA-C [address], [place], [address] , [place] [facility] [place] & [place] 4 10:42:45 Myofascial pain 606633157 Active 2023 Gloria burnette, [facility] & [place] 4 13:39:38 Problem Notes None recorded. Procedures Surgical History Date Name Laterality Status Provider Name and Address Organization Details Recorded Time 4 Injection Only completed Gloria Sarmiento [facility] & [place] 07/19/2024 13:38:33 Imaging Results None recorded. Procedure [...] Updated DateTime 4 177.8 cm 38.2 kg/m2 586010. 29 g 98.1 [degF] 98 % 98 % 66 /min 146/90 mm[Hg] Aniyah Boss [facility] & [place] 4 09:14:11 Date Recorded Body height Body mass index (BMI) Body weight Body temperature Oxygen saturation Oxygen saturation in Arterial blood by Pulse oximetry Heart rate Respiratory rate Systolic And Diastolic Provider Name and Address Organization Details Last Updated DateTime 4 177.8 cm 37.8 kg/m2 993415. 23 g 99.3 [degF] 95 % 95 % 81 /min 16 /min 130/88 mm[Hg] Maria Guadaluperianna Starr [facility] & [place] 4 08:33:12 Date Recorded Body height Body mass index (BMI) Body weight Body temperature Oxygen saturation Oxygen saturation in Arterial blood by Pulse oximetry Heart rate Systolic And Diastolic Provider Name and Address Organization Details Last Updated DateTime 4 177.8 cm 38.1 kg/m2 620850. 85 g 97.1 [degF] 96 % 96 % 81 /min 103/61 mm[Hg] [facility] & [place] 4 11:22:09 Date Recorded Body height Body mass index (BMI) Body weight Body temperature Oxygen saturation Oxygen saturation in Arterial blood by Pulse oximetry Heart rate Heart rate Systolic And Diastolic Provider Name and Address Organization Details Last Updated DateTime 4 177.8 cm 38.1 kg/m2 216308. 85 g 97.5 [degF] 98 % 98 % 69 /min 71 /min 160/89 mm[Hg] Norberto Tubbs [facility] & [place] 4 10:09:21 Date Recorded Body height Body temperature Oxygen saturation Oxygen saturation in Arterial blood by Pulse oximetry Heart rate Systolic And Diastolic Provider Name and Address Organization Details Last Updated DateTime 4 177.8 cm 97.1 [degF] 97 % 97 % 69 /min 157/96 mm[Hg] [facility] - [facility] & [place] 09:28:55 Social History Question Answer Notes LastModified by Organizat ion Details LastModified Time Tobacco Smoking Status Never Smoker Aniyah burnette, [place] [facility] [place] & [place] 2022 13:58:30 What Is Your Level Of Caffeine Consumption? None Information not available 07/08/2024 Sex: Unknown Functional Status Question Answer Note LastModified by Organizat ion Details LastModified Time Do you use any illicit or recreational drugs? No Information not available 2022 Do you or have you ever used any other forms of tobacco or nicotine? No [email or web address] Information not available 07/08/2024 What is your [...] PF, 30 mcg/0.3 mL dose 02/07/2021 completed [place] Jaya burnette, [place] [facility] & [place] 06/13/2024 11:22:25 COVID-19, mRNA, LNP-S, PF, 30 mcg/0.3 mL dose 02/28/2021 completed [place] Suesan antonio vasile, [place] [facility] & [place] 06/13/2024 11:22:25 COVID-19, mRNA, LNP-S, PF, 30 mcg/0.3 mL dose, priscilla-sucrose 01/15/2022 completed [place] Jaya burnette, [place] [facility] [place] & [place] 06/13/2024 11:22:25 Tdap 02/28/2022 completed [place] Jaya [place]ette, [place] [facility] [place] 06/13/2024 11:22:25 Past Encounters Encounter ID Performer Location Encounter Start Date Encounter Closed Date Diagnosis/Indication Diagnosis SNOMED-CT Code Diagnosis ICD10 Code Diagnosis IMO Codes Diagnosis Note [id number] Jasbir Garcia PA-C [facility] [address] [address] 11/30/2023 09:08:10 11/30/2023 11:00:34 Erosive esophagitis 62767202 K22.10 Left sided abdominal pain 242830326 R10.9 Splenomegaly 88166679 R1 6.1 History of diverticulitis 2461845159 89842 Z87.19 Duodenitis 99547275 K29. 80 [id number] Jasbir Garica PA-C [facility] [address] [address] 12/28/2023 13:29:36 12/28/2023 13:53:38 Erosive esophagitis 11259720 K22.10 Left sided abdominal pain 994606508 R10.9 Splenomegaly 47861440 R1 6.1 History of diverticulitis 9370798755 16206 Z87.19 Duodenitis 25565847 K29. 80 [id number] Jasbir Garcia PA-C [facility] [address] [address] 01/22/2024 14:50:55 01/22/2024 15:51:35 Left sided abdominal pain 097769539 R10.9 Erosive esophagitis 4071 9004 K22.10 Splenomegaly 31184694 R1 6.1 History of diverticulitis 9881745515 69842 Z87.19 Duodenitis 61066961 K29. 80 [id number] Kevin Cutler MD [facility] [address] [place] [address] 02/27/2024 08:58:37 02/27/2024 10:05:34 Pain in thoracic spine 939376745 M54.6 Thoracic neuritis 199146 09 M54.14 Left upper quadrant pain 497396007 R10.12 Radicular pain 25201173 M54.10 History of diverticulitis 9620740610 68406 Z87.19 [id number] KEYSHAWN SALGADO PA-C [facility] [address] [facility] [address] [place] [address] 03/25/2024 08:23:34 03/25/2024 09:03:56 Pain in thoracic spine 804206941 M54.6 Thoracic neuritis 987402 09 M54.14 Left upper quadrant pain 874434279 R10.12 Radicular pain 63283077 M54.10 History of diverticulitis 1500050664 72071 Z87.19 [id number] KEYSHAWN SALGADO PA-C [facility] [address] [facility] [address] [place] [address] 06/13/2024 11:06:15 06/13/2024 11:39:30 Left upper quadrant pain 326885313 R10.12 Radicular pain 07668984 M54.10 History of diverticulitis 0108690623 50150 Z87.19 Myofascial pain 55411576 9 M79.18 - The patient is nearly [...] with his PCP and GI specialist . [id number] Jasbir Garcia PA-C [facility] [address] [facility] [address] [place] [address] 07/08/2024 09:45:57 07/08/2024 10:36:10 Left sided abdominal pain 403235660 R10.9 Erosive esophagitis 4071 9004 K22.10 Splenomegaly 42812546 R1 6.1 History of diverticulitis 3181483366 90897 Z87.19 Duodenitis 93680984 K29. 80 Somatic dy sfunction of rib 332924903 M99.08 [id number] Kevin Cutler MD [facility] [address] [facility] [address] [place] [address] 07/19/2024 08:36:15 07/19/2024 10:50:04 Myofascial pain 836717576 M79.18 Health Concerns Section Related Observation LastModified by Organization Detai ls LastModified Time None Recorded Concern Status LastModified by Organization Details LastModified Time None Recorded Advance Directives Directive None Recorded Payers Insurance Date Sequence Insurance Name Policy Number Policy Bernal Covered Member ID Bernal Member ID Guarantor Name 07/23/2024 1 [facility] [id number] Krysta Landers [id number] Notes Date Note Type Note Provider Name [...] his pain. Initial complaint: chronic LUQ painOnset: 2015Context: worsening over timeCharacter: sharp, aching, throbbing, radiatingLocation: [...] noneSurgery: noneImaging/Studies: CT abdomen Kevin Cutler MD [address] [facility], [place], [address], [facility] & [place] 02/28/2024 08:59:17 4 text/html ROS as noted in the HPI Mr. Landers was referred by Dr. Harry [...] abdomen KEYSHAWN SALGADO PA-C [address], [place], [address], [facility] - [facility] 03/25/2024 09:15:26 4 text/html ROS as noted in the HPI Mr. Landers was referred by Dr. Harry [...] abdomen KEYSHAWN SALGADO PA-C [address], [place], [address], [place] [facility] - [place] & [place] 06/17/2024 13:12:06 4 text/html PREVIOUS (11/30/23): Mr. [...] change in bowel habits. Jasbir Garcia PA-C [address], [place], [address], [facility] - [place] - [place] & [place] 07/08/2024 10:45:16
--- OUTSIDE RECORDS SUMMARY | 2025-07-14 07:39 | XMS_ITS | Clinical Summary ---
Author Organization [facility] Address [address] [place] [address] Care Team Providers Care Dietetic Technician Name Role Phone Douglas Singh MD Primary [...] complete this topic Insurance [employer] Care Teams Dietetic Technician Relationship Specialty Start Date End Date Douglas Singh MD [address] [place] [id number] PCP - General Family Medicine 07/30/24
[2025-07-14] MEDS: IOPAMIDOL-370 (76%);100ML BOTTLE 75 ML IV (07:54)
[2025-07-14] MEDS: SODIUM CHLORIDE 0.9% 10ML SYR (RAD ONLY) 10 ML IV (07:54)
--- NOTE | 2025-07-14 08:00 | CT_ITS ---
FINAL REPORT TECHNIQUE: Pre-and postcontrast axial imaging of the abdomen and pelvis was obtained.This study was performed with techniques to keep radiation doses as low as reasonably achievable, (ALARA). Individualized dose reduction technique using automated exposure control or adjustment of mA and/or kV according to the patient's size were employed. CLINICAL HISTORY: Intractable LUQ pain-rule out splenic infarct or COMPARISON: 03/22/2024 FINDINGS: The lung bases are clear. The liver is diffusely fatty infiltrated. The gallbladder is present. The spleen is mildly enlarged measuring 14.7 cm. There is no evidence of splenic infarct. Adrenal glands and pancreas are without acute abnormality. There is no hydronephrosis or solid renal mass. On precontrast imaging, no renal stones are identified. Abdominal GI tract is unremarkable. There is no lymphadenopathy or ascites. The pelvic organs and pelvic portions of the GI tract, including the appendix, are within normal limits. There is diverticulosis without evidence of diverticulitis. There is no lymphadenopathy or ascites. No acute osseous abnormalities identified. IMPRESSION: 1. No evidence of splenic infarct. 2. Fatty infiltration of the liver with mild splenomegaly Reviewed, Interpreted and Dictated by Roula Blake MD Transcribed by Loren Fields Authenticated and [facility]
== END 2025-07-14 23:59 | disposition home or self-care (01) ==
LOC: RAD 07:37
PROVIDERS: PCP Nurse Practitioner Family; Visit Provider Internal Medicine Gastroenterology
DX: K76.0 Fatty (change of) liver, not elsewhere classified (principal); R16.1 Splenomegaly, not elsewhere classified; R10.12 Left upper quadrant pain
CPT/HCPCS: 74178; Q9967